=== PATIENT | male | born 1975 | race Caucasian/White ===

== ENCOUNTER 2023-05-16 18:53 | Inpatient (IN) | payer OTHER ==
--- NOTE | 2023-05-16 21:09 | ED ---
General Adult HPI - General Source: patient, RN notes reviewed Mode of arrival: ambulatory Limitations: no limitations <Deidre Leslie - Last Filed: 05/18/23 03:48> - History of Present Illness Onset/Timin -: days(s) Severity scale (1-10): 0 Consistency: constant Improves with: none Worsens with: none Associated Symptoms: nausea/vomiting, shortness of breath, weakness Treatments Prior to Arrival: none <Jesus Way - Last Filed: 05/21/23 08:18> - General Chief complaint: Nausea/Vomiting/Diarrhea Stated complaint: sob, dizziness, vomiting Time Seen by Provider: 05/16/23 21:05 - History of Present Illness Initial comments: 48-year-old male presents the emergency department with nausea and vomiting 1 week. (Deidre Leslie) This patient is a 48-year-old man who presents to emergency department he states mainly for dyspnea that started on . He did have a little bit of nausea and vomiting that had preceded the symptoms, but states that he really started feeling worse since . He had not noted fever or chills. No chest pain. No productive cough. No leg pain or swelling, other than a little bit of bilateral ankle swelling he has at baseline. No change in urination or bowel movements. (Jesus Way) - Related Data Home Medications Medication Instructions Recorded Confirmed Glimepiride [Amaryl] 2 mg PO DAILY 11/18/21 05/17/23 lisinopriL [Zestril] 2.5 mg PO DAILY 11/18/21 05/17/23 Pioglitazone [Actos] 30 mg PO DAILY 05/17/23 05/17/23 Previous Rx's Medication Instructions Recorded Atorvastatin Calcium [Lipitor] 40 mg PO DAILY #0 11/20/21 Allergies Allergy/AdvReac Type Severity Reaction Status Date / Time No Known Allergies Allergy Verified 05/17/23 07:34 Review of Systems ROS Other: All systems not noted in ROS Statement are negative. <Deidre Leslie - Last Filed: 05/18/23 03:48> ROS Other: All systems not noted in ROS Statement are negative. Constitutional: Reports: weakness. Denies: fever, chills Respiratory: Reports: dyspnea. Denies: cough, wheezes, hemoptysis Cardiovascular: Denies: chest pain, palpitations, orthopnea, edema, syncope Gastrointestinal: Reports: nausea, vomiting. Denies: abdominal pain, diarrhea, constipation, hematemesis, melena, hematochezia Genitourinary: Denies: dysuria, hematuria Musculoskeletal: Denies: back pain Skin: Denies: rash Neurological: Denies: headache, weakness, numbness <SeamusJesus - Last Filed: 05/21/23 08:18> ROS Statement: Those systems with pertinent positive or pertinent negative responses have been documented in the HPI. Past Medical History Past Medical History: Diabetes Mellitus, Hyperlipidemia, Hypertension History of Any Multi-Drug Resistant Organisms: None Reported Past Surgical History: Unable to Obtain Past Psychological History: No Psychological Hx Reported Smoking Status: Current every day smoker Past Alcohol Use History: None Reported Past Drug Use History: None Reported <BlakejassDeidre - Last Filed: 05/18/23 03:48> - Past Family History Father Family Medical History: Cancer, CVA/TIA Additional Family Medical History / Comment(s): bladder CA Mother Family Medical History: Diabetes Mellitus, Hypertension <SeamusJesus - Last Filed: 05/21/23 08:18> General Exam Limitations: no limitations <Deidre Leslie - Last Filed: 05/18/23 03:48> Limitations: no limitations General appearance: alert, in no apparent distress Head exam: Present: atraumatic, normocephalic Eye exam: Present: normal appearance. Absent: scleral icterus, conjunctival injection ENT exam: Present: normal oropharynx Neck exam: Present: normal inspection Respiratory exam: Present: normal lung sounds bilaterally. Absent: respiratory distress, wheezes, rales, rhonchi, stridor, accessory muscle use Cardiovascular Exam: Present: regular rate, normal rhythm, normal heart sounds. Absent: systolic murmur, diastolic murmur, rubs, gallop GI/Abdominal exam: Present: soft. Absent: distended, tenderness, guarding, rebound, rigid, mass Extremities exam: Present: normal inspection, normal capillary refill. Absent: pedal edema, calf tenderness Back exam: Present: normal inspection. Absent: CVA tenderness (R), CVA tenderness (L) Neurological exam: Present: alert Skin exam: Present: warm, dry, intact, normal color. Absent: rash <Jesus Way - Last Filed: 05/21/23 08:18> - General Exam Comments Initial Comments: Visual Physical Exam Vital signs reviewed General: Well-appearing, nontoxic, no acute distress. Head: Normocephalic, atraumatic Eyes: PERRLA, EOMI ENT: Airway patent Chest: Nonlabored breathing Skin: No visual rash, normal skin tone Neuro: Alert and oriented 3 Musculoskeletal: No gross abnormalities (Deidre Leslie) Course Vital Signs 05/16/23 05/17/23 05/17/23 18:55 01:00 04:00 Temperature 98.6 F Pulse Rate 89 98 86 Respiratory 20 20 16 Rate Blood Pressure 149/87 125/80 139/71 O2 Sat by Pulse 99 100 99 Oximetry 05/17/23 05/17/23 05/17/23 07:22 11:37 15:15 Temperature 98.3 F Pulse Rate 99 92 95 Respiratory 18 20 18 Rate Blood Pressure 127/80 156/98 149/87 O2 Sat by Pulse 100 99 100 Oximetry EKG Findings - EKG Results: EKG: interpreted by ERMD, sinus rhythm, normal axis - Blocks, Downey, Hypertrophy, ST Abn: AV and intraventricular conduction: 1 AV block QRS axis and voltage: low voltage (<0.5 MV total QRS and <1.0 MV in each precordial lead) Repolarization changes or abnormalities: nonspecific abnormality, ST segment, and/or T wave <Jesus Way - Last Filed: 05/21/23 08:18> Medical Decision Making - Lab Data Result diagrams: 05/16/23 21:57 05/17/23 07:54 <Deidre Leslie - Last Filed: 05/18/23 03:48> - Lab Data Result diagrams: 05/20/23 07:01 05/21/23 07:24 <[address] - Last Filed: 05/21/23 08:18> - Medical Decision Making Patient is a 48-year-old man with history of diabetes and smoking presenting with main complaint of dyspnea going on since . The ECG does show changes concerning for ischemia though not acute STEMI. Suspect that patient has had a cardiac event on as she does have positive troponin. The case is discussed with cardiology and there treatment recommendations are incorporated. Patient also found to have worsening of underlying kidney function and will be admitted to see nephrology as well is cardiology. Was pt. sent in by a medical professional or institution (, PA, BRAKE REPAIR MECHANIC, urgent care, hospital, or intermediate...) When possible be specific @ -[No] Did you speak to anyone other than the patient for history (EMS, parent, family, police, friend...)? What history was obtained from this source @ -[No] Did you review nursing and triage notes (agree or disagree)? Why? @ -[I reviewed and agree with nursing and triage notes] Were old charts reviewed (outside hosp., previous admission, EMS record, old EKG, old radiological studies, urgent care reports/EKG's, intermediate records)? Report findings @ -[old charts were reviewed] Differential Diagnosis (chest pain, altered mental status, abdominal pain women, abdominal pain men, vaginal bleeding, weakness, fever, dyspnea, syncope, headache, dizziness, GI bleed, back pain, seizure, CVA, palpatations, mental health, musculoskeletal)? @ -[Differential Dyspnea: Coronary syndrome, arrhythmia, tamponade, asthma, COPD, pulmonary embolism, pneumonia, pneumothorax, pulmonary effusion, anaphylaxis, diabetic ketoacidosis, flailed chest, pulmonary contusion, diaphragmatic rupture, anemia, neuromuscular, this is not meant to be an all-inclusive list. EKG interpreted by me (3pts min.). @ -[As above] X-rays interpreted by me (1pt min.). @ -[As above CT interpreted by me (1pt min.). @ -[None done] U/S interpreted by me (1pt. min.). @ -[None done] What testing was considered but not performed or refused? (CT, X-rays, U/S, labs)? Why? @ -[None] What meds were considered but not given or refused? Why? @ -[None] Did you discuss the management of the patient with other professionals (professionals i.e. NED Carrillo, BRAKE REPAIR MECHANIC, lab, RT, psych nurse, social security assessor, computer forensic examiner, teacher, donor relations officer, top case assembler)? Give summary @ -[I discussed the case with the senior back end java developer and also with the admitting physician service and there treatment recommendations were incorporated. Was smoking cessation discussed for >3mins.? @ -[Yes Was critical care preformed (if so, how long)? @ -[Yes, 40 minutes Were there social determinants of health that impacted care today? How? (Homelessness, low income, unemployed, alcoholism, drug addiction, transportation, low edu. Level, literacy, decrease access to med. care, fdc, rehab)? @ -[No] Was there de-escalation of care discussed even if they declined (Discuss DNR or withdrawal of care, Hospice)? DNR status @ -[No] What co-morbidities impacted this encounter? (DM, HTN, Smoking, COPD, CAD, Cancer, CVA, ARF, Chemo, Hep., AIDS, mental health diagnosis, sleep apnea, morbid obesity)? @ -[Diabetes, hypertension, smoking and some underlying chronic renal failure Was patient admitted / discharged? Hospital course, mention meds given and route, prescriptions, significant lab abnormalities, going to OR and other pertinent info. @ -[Admitted Undiagnosed new problem with uncertain prognosis? @ -[No] Drug Therapy requiring intensive monitoring for toxicity (Heparin, Nitro, Insulin, Cardizem)? @ -[Heparin Were any procedures done? @ -[No] Diagnosis/symptom? @ -[Elevated troponin I Acute NSTEMI Acute on chronic renal failure Acute, or Chronic, or Acute on Chronic? @ -[default] Uncomplicated (without systemic symptoms) or Complicated (systemic symptoms)? @ -[Complicated, the above problems leading to dyspnea Side effects of treatment? @ -[No] Exacerbation, Progression, or Severe Exacerbation? @ -[No] Poses a threat to life or bodily function? How? (Chest pain, [place], [place], pneumonia, PE, COPD, DKA, ARF, appy, cholecystitis, CVA, Diverticulitis, Homicidal, Suicidal, threat to staff... and all critical care pts) @ -[Yes risk of worsening cardiac function and/or kidney function may lead to organ failure and (Jseus Way) - Lab Data Lab Results 05/16/23 05/16/23 05/16/23 Range/Units 21:57 21:57 21:57 WBC 13.6 H (3.8-10.6) k/uL RBC 3.41 L (4.30-5.90) m/uL Hgb 9.6 L (13.0-17.5) gm/dL Hct 29.7 L (39.0-53.0) % MCV 87.3 (80.0-100.0) fL MCH 28.1 (25.0-35.0) pg MCHC 32.2 (31.0-37.0) g/dL RDW 13.7 (11.5-15.5) % Plt Count 317 (150-450) k/uL MPV 8.2 Neutrophils % 69 % Lymphocytes % 21 % Monocytes % 6 % Eosinophils % 2 % Basophils % 0 % Neutrophils # 9.5 H (1.3-7.7) k/uL Lymphocytes # 2.8 (1.0-4.8) k/uL Monocytes # 0.8 (0-1.0) k/uL Eosinophils # 0.2 (0-0.7) k/uL Basophils # 0.0 (0-0.2) k/uL PT 9.3 (9.0-12.0) sec INR 0.9 (<1.2) APTT 23.5 (22.0-30.0) sec Sodium 141 (137-145) mmol/L Potassium 4.3 (3.5-5.1) mmol/L Chloride 113 H (98-107) mmol/L Carbon Dioxide 17 L (22-30) mmol/L Anion Gap 11 mmol/L BUN 55 H (9-20) mg/dL Creatinine 3.96 H (0.66-1.25) mg/dL Est GFR (CKD-EPI)AfAm 19 (>60 ml/min/1.73 sqM) Est GFR (CKD-EPI)NonAf 17 (>60 ml/min/1.73 sqM) Glucose 152 H (74-99) mg/dL Plasma Lactic Acid Contreras (0.7-2.0) mmol/L Calcium 8.5 (8.4-10.2) mg/dL Total Bilirubin 0.3 (0.2-1.3) mg/dL AST 64 H (17-59) U/L ALT 37 (4-49) U/L Alkaline Phosphatase 69 (38-126) U/L Troponin I (0.000-0.034) ng/mL Total Protein 6.5 (6.3-8.2) g/dL Albumin 3.4 L (3.5-5.0) g/dL Influenza Type A (PCR) (Not Detectd) Influenza Type B (PCR) (Not Detectd) RSV (PCR) (Not Detectd) SARS-CoV-2 (PCR) (Not Detectd) 05/16/23 05/16/23 05/16/23 Range/Units 21:57 21:57 21:57 WBC (3.8-10.6) k/uL RBC (4.30-5.90) m/uL Hgb (13.0-17.5) gm/dL Hct (39.0-53.0) % MCV (80.0-100.0) fL MCH (25.0-35.0) pg MCHC (31.0-37.0) g/dL RDW (11.5-15.5) % Plt Count (150-450) k/uL MPV Neutrophils % % Lymphocytes % % Monocytes % % Eosinophils % % Basophils % % Neutrophils # (1.3-7.7) k/uL Lymphocytes # (1.0-4.8) k/uL Monocytes # (0-1.0) k/uL Eosinophils # (0-0.7) k/uL Basophils # (0-0.2) k/uL PT (9.0-12.0) sec INR (<1.2) APTT (22.0-30.0) sec Sodium (137-145) mmol/L Potassium (3.5-5.1) mmol/L Chloride (98-107) mmol/L Carbon Dioxide (22-30) mmol/L Anion Gap mmol/L BUN (9-20) mg/dL Creatinine (0.66-1.25) mg/dL Est GFR (CKD-EPI)AfAm (>60 ml/min/1.73 sqM) Est GFR (CKD-EPI)NonAf (>60 ml/min/1.73 sqM) Glucose (74-99) mg/dL Plasma Lactic Acid Contreras 0.9 (0.7-2.0) mmol/L Calcium (8.4-10.2) mg/dL Total Bilirubin (0.2-1.3) mg/dL AST (17-59) U/L ALT (4-49) U/L Alkaline Phosphatase (38-126) U/L Troponin I 34.500 H* (0.000-0.034) ng/mL Total Protein (6.3-8.2) g/dL Albumin (3.5-5.0) g/dL Influenza Type A (PCR) Not Detected (Not Detectd) Influenza Type B (PCR) Not Detected (Not Detectd) RSV (PCR) Not Detected (Not Detectd) SARS-CoV-2 (PCR) Not Detected (Not Detectd) Critical Care Time Critical Care Time: Yes (40 minutes) <[address] - Last Filed: 05/21/23 08:18> Disposition Is patient prescribed a controlled substance at d/c from ED?: No Time of Disposition: 03:48 <Deidre Leslie - Last Filed: 05/18/23 03:48> Is patient prescribed a controlled substance at d/c from ED?: No <Jesus Way - Last Filed: 05/21/23 08:18> Clinical Impression: NSTEMI (non-ST elevated myocardial infarction), Acute on chronic renal failure, Anemia Disposition: ADMITTED IP TO THIS HOSP Condition: Serious
--- NOTE | 2023-05-16 21:44 | XR ---
EXAMINATION TYPE: XR chest 2V DATE OF EXAM: 05/16/2023 9:25 PM COMPARISON: Chest x-ray 11/19/2021 TECHNIQUE: XR chest 2V . CLINICAL INDICATION:Male, 48 years old with history of syncope; FINDINGS: Lungs/Pleura: There is no evidence of pleural effusion, focal consolidation, or pneumothorax. Pulmonary vascularity: Unremarkable. Heart/mediastinum: Cardiomediastinal silhouette is enlarged. Musculoskeletal: Multiple level degenerative disc disease changes seen throughout the spine. IMPRESSION: Cardiomegaly without pulmonary vascular congestion or focal airspace consolidation.
[2023-05-16 22:57] LABS: Basophils % (A) 0 %; Eosinophils # (A) 0.2 k/uL (0-0.7); Eosinophils % (A) 2 %; HCT 29.7 % (39.0-53.0); HGB 9.6 gm/dL (13.0-17.5); Lymphocytes # (A) 2.8 k/uL (1.0-4.8); Lymphocytes % (A) 21 %; MCH 28.1 pg (25.0-35.0); MCHC 32.2 g/dL (31.0-37.0); MCV 87.3 fL (80.0-100.0); Mean Platelet Volume 8.2; Monocytes # (A) 0.8 k/uL (0-1.0); Monocytes % (A) 6 %; Neutrophils # (A) 9.5 k/uL (1.3-7.7); Neutrophils % (A) 69 %; Platelet Count 317 k/uL (150-450); RBC 3.41 m/uL (4.30-5.90); RDW 13.7 % (11.5-15.5); WBC 13.6 k/uL (3.8-10.6)
[2023-05-16 23:01] LABS: INR 0.9 (<1.2); Partial Thromboplastin Time 23.5 sec (22.0-30.0); Prothrombin Time 9.3 sec (9.0-12.0)
[2023-05-16 23:06] LABS: ALT 37 U/L (4-49); AST 64 U/L (17-59); African American GFR (CKD) 19 (>60 ml/min/1.73 sqM); Albumin 3.4 g/dL (3.5-5.0); Alkaline Phosphatase 69 U/L (38-126); Anion Gap 11 mmol/L; Blood Urea Nitrogen 55 mg/dL (9-20); Calcium 8.5 mg/dL (8.4-10.2); Carbon Dioxide 17 mmol/L (22-30); Chloride 113 mmol/L (98-107); Glucose 152 mg/dL (74-99); Non-African American GFR(CKD) 17 (>60 ml/min/1.73 sqM); Potassium 4.3 mmol/L (3.5-5.1); Sodium 141 mmol/L (137-145); Total Bilirubin 0.3 mg/dL (0.2-1.3); Total Protein 6.5 g/dL (6.3-8.2)
[2023-05-16] MEDS ORDERED: HEPARIN SODIUM 1,000 UN/ML (10ML VL) IV ONE (23:26)
[2023-05-16] MEDS: HEPARIN SOD,PORK IN 0.45% NACL 25,000 UNIT in 0.45% NACL 1 250ML.BAG IV SCH (23:38)
[2023-05-17] MEDS ORDERED: NITROGLYCERIN SL TABS 0.4 MG TAB SUBLINGUAL PRN (00:36)
--- NOTE | 2023-05-17 00:36 | XR ---
EXAM: XR Chest, 1 View CLINICAL HISTORY: ITS.REASON XR Reason: dyspnea TECHNIQUE: Frontal view of the chest. COMPARISON: No relevant prior studies available. FINDINGS: Lungs: Unremarkable. No consolidation. Pleural space: Unremarkable. No pneumothorax. Heart: Unremarkable. No cardiomegaly. Mediastinum: Unremarkable. Bones/joints: Unremarkable. IMPRESSION: Normal chest x-ray.
[2023-05-17] MEDS: HEPARIN SODIUM 1,000 UN/ML (10ML VL) IV PRN ×3 (07:17→22:26)
--- NOTE | 2023-05-17 08:12 | US ---
EXAMINATION TYPE: US kidneys/renal and bladder DATE OF EXAM: 05/17/2023 COMPARISON: NONE CLINICAL INDICATION: Male, 48 years old with history of ioana; EXAM MEASUREMENTS: Right Kidney: 11.3 x 6.2 x 6.1 cm Left Kidney: 12.6 x 6.1 x 6.7 cm Right Kidney: No hydronephrosis or masses seen Left Kidney: No hydronephrosis or masses seen Bladder: wnl There is no evidence for hydronephrosis at this point in time. No nephrolithiasis is seen. No gregorio s are identified. The urinary bladder is anechoic. Bilateral cortical thinning. Dromedary hump on th e left noted. IMPRESSION: Bilateral cortical thinning correlate for chronic medical renal disease.
[2023-05-17 08:28] LABS: African American GFR (CKD) 19 (>60 ml/min/1.73 sqM); Anion Gap 8 mmol/L; Blood Urea Nitrogen 51 mg/dL (9-20); Calcium 8.6 mg/dL (8.4-10.2); Carbon Dioxide 20 mmol/L (22-30); Chloride 114 mmol/L (98-107); Glucose 120 mg/dL (74-99); Non-African American GFR(CKD) 16 (>60 ml/min/1.73 sqM); Potassium 4.4 mmol/L (3.5-5.1); Sodium 142 mmol/L (137-145)
[2023-05-17] MEDS ORDERED: GLIMEPIRIDE 2 MG TAB PO SCH (09:00)
[2023-05-17] MEDS ORDERED: ATORVASTATIN 40 MG TAB PO SCH (09:00)
[2023-05-17] MEDS: METOPROLOL TARTRATE 25 MG TAB PO SCH ×2 (09:12→21:03)
[2023-05-17] MEDS: SODIUM CHLORIDE 0.9% 1,000 ML IV SCH ×2 (09:14→21:03)
[2023-05-17] MEDS: ATORVASTATIN 80 MG TAB PO SCH (09:14)
[2023-05-17] MEDS ORDERED: DEXTROSE 50% SYRINGE 50 ML IVP PRN ×2 (09:37)
--- NOTE | 2023-05-17 09:53 | US ---
EXAMINATION TYPE: US carotid duplex BILAT DATE OF EXAM: 05/17/2023 COMPARISON: NONE CLINICAL INDICATION: Male, 48 years old with history of r/o stenosis, + bruit; Bruit. Current smoker. TECHNIQUE: Carotid duplex ultrasound examination. Indirect Doppler criteria was utilized. FINDINGS: EXAM MEASUREMENTS: RIGHT: Peak Systolic Velocity (PSV) cm/sec ----- Right CCA: 76.8 ----- Right ICA: 78.2 ----- Right ECA: 100.8 ICA/CCA ratio: 1.0 RIGHT: End Diastole cm/sec ----- Right CCA: 21.9 ----- Right ICA: 28.4 ----- Right ECA: 14.1 LEFT: Peak Systolic Velocity (PSV) cm/sec ----- Left CCA: 74.7 ----- Left ICA: 100.8 ----- Left ECA: 95.6 ICA/CCA ratio: 1.4 LEFT: End Diastole cm/sec ----- Left CCA: 17.1 ----- Left ICA: 40.0 ----- Left ECA: 11.5 VERTEBRALS (direction of flow): Right Vertebral: Unable to visualize Left Vertebral: Antegrade Rhythm: Normal SALESPERSON HOSIERY NOTES: No elevated velocities at this time. Plaque seen within left bulb/proximal ICA. Ri ght vertebral not seen. IMPRESSION: Atherosclerotic plaque with no significant hemodynamic stenosis Criteria for Assigning % of Stenosis / Diameter reduction (Estimation based on the indirect measurements of the internal carotid artery velocities (ICA PSV). 1. Normal (no stenosis)=ICA PSV < 125 cm/s: ratio < 2.0: ICA EDV<40 cm/s. 2. Less than 50% stenosis=ICA PSV < 125 cm/s: ratio < 2.0: ICA EDV<40 cm/s. 3. 50 to 69% stenosis=ICA PSV of 125 to 230 cm/s: ration 2.0 ? 4.0: ICA EDV 40-100 cm/s. 4. Greater than 70% stenosis to near occlusion= ICA PSV > 230 cm/s: ratio > 4.0: ICA EDV > 100 cm/s. 5. Near occlusion= ICA PSV velocities may be low or undetectable: variable ratio and ICA EDV. 6. Total occlusion=unable to detect flow.
[2023-05-17 10:02] LABS: Glucose,Whole Blood 135 mg/dL (70-110)
--- NOTE | 2023-05-17 11:32 | P.NPCON ---
History of Present Illness - Reason for Consult acute renal failure, chronic renal failure - History of Present Illness Reason for consultation: Acute kidney injury on chronic kidney disease History of present illness: Patient is a 48-year-old male seen in renal consultation for acute kidney injury on chronic kidney disease. Patient's creatinine in November 2021 was 1.6 and was 3.96 on admission. It is 4.02 today. Patient came to the hospital due to not feeling well. Patient states he developed nausea and vomiting last as well as shortness of breath. Patient states symptoms have been getting better but still not back to normal saline taking the hospital for further workup. Troponins are noted to be severely elevated. He's been followed by cardiology. Patient does have history of diabetes. He denies regular use of nonsteroidals. Denies family history of renal disease. Denies gross hematuria or dysuria. Blood pressure is stable. No chest pain. He is on room air. He is currently on heparin drip. Ultrasound shows no evidence of hydronephrosis. Denies fever or chills. No cough. Vital signs are stable. General: No acute distress. HEENT: Head exam is unremarkable. LUNGS: No audible rhonchi or wheezes. HEART: Rate and Rhythm are regular. ABDOMEN: Nontender. EXTREMITITES: No edema. Past Medical History Past Medical History: Diabetes Mellitus, Hyperlipidemia, Hypertension History of Any Multi-Drug Resistant Organisms: None Reported Past Surgical History: Unable to Obtain Past Psychological History: No Psychological Hx Reported Smoking Status: Current every day smoker Past Alcohol Use History: None Reported Past Drug Use History: None Reported Medications and Allergies Home Medications Medication Instructions Recorded Confirmed Type Glimepiride [Amaryl] 2 mg PO DAILY 11/18/21 05/17/23 History lisinopriL [Zestril] 2.5 mg PO DAILY 11/18/21 05/17/23 History Atorvastatin Calcium [Lipitor] 40 mg PO DAILY #0 11/20/21 05/17/23 Rx Pioglitazone [Actos] 30 mg PO DAILY 05/17/23 05/17/23 History Allergies Allergy/AdvReac Type Severity Reaction Status Date / Time No Known Allergies Allergy Verified 05/17/23 07:34 Physical Exam Vitals: Vital Signs Temp Pulse Resp BP Pulse Ox 05/17/23 07:22 98.3 F 99 18 127/80 100 05/17/23 04:00 86 16 139/71 99 05/17/23 01:00 98 20 125/80 100 05/16/23 18:55 98.6 F 89 20 149/87 99 Intake and Output 05/16/23 05/17/23 05/17/23 22:59 06:59 14:59 Intake Total 76.833 Balance 76.833 Intake: Intake, IV Titration 76.833 Amount Heparin Sod,Pork in 0.45% 76.833 NaCl 25,000 unit In 0.45 % NaCl 1 250ml.bag @ 8. 4793 UNITS/KG/HR 10 mls/ hr IV .Q24H [facility] Rx#: [id number] Other: Weight 117.934 kg Results - Lab Results Most recent lab results Calcium 8.6 mg/dL (8.4-10.2) 05/17/23 07:54 Magnesium 2.0 mg/dL (1.6-2.3) 05/17/23 07:54 05/16/23 21:57 05/17/23 07:54 Assessment and Plan Plan: assessment: 1. Acute kidney injury secondary to ATN versus progression of underlying chronic kidney disease. No evidence of hydronephrosis noted on kidney ultrasound. 2. Chronic kidney disease stage IIIa with baseline creatinine near 1.6 in November 2021. Suspect diabetic kidney disease. 3. Elevated troponins concerning for acute SD. Cardiology following. On heparin drip. 4. Metabolic acidosis secondary to acute kidney injury. 5. Anemia of chronic kidney disease. Flovent deficiency. 6. Diabetes mellitus. Plan: Start normal saline at 75 mL an hour. Add oral bicarb. Check UA. Lisinopril discontinued. Avoid nephrotoxins. Continue to monitor renal function and urine output. Thank you for the consultation. I will continue to follow the patient with you during his hospital stay.
[2023-05-17 11:58] LABS: Glucose,Whole Blood 208 mg/dL (70-110)
[2023-05-17] MEDS: INSULIN ASPART (NovoLOG) 100 UNIT/ML VIAL SQ SCH ×3 (12:00→20:41)
[2023-05-17] MEDS: SODIUM BICARBONATE TAB 650 MG TAB PO SCH ×2 (12:47→21:03)
--- NOTE | 2023-05-17 13:04 | P.CRDCN ---
History of Present Illness Consult date: 05/17/23 History of present illness: History of Present Illness: The patient is a 48-year-old male with a known history of chronic tobacco use, hypertension and diabetes who presented with symptoms of progressive fatigue and dyspnea since last without any clear chest discomfort. On presentation he was noted to have an abnormal EKG with elevated troponin and significant renal function abnormality. He denies any knowledge of prior cardiac workup or history of myocardial infarction or congestive heart failure. According to him he has been active physically in the past. He denies any peripheral edema, PND or orthopnea. He has no dizziness, palpitations or syncope. His EKG shows sinus mechanism with ST depression in V3 and aVF and QS and aVL. His initial troponin was 34.5 and creatinine of 3.96. Reviewing prior data his creatinine was 1.6-1.8. The patient has a knowledge that he has prior renal abnormalities but has not had for workup. Medications: Actos, Zestril 2.5 mg daily, Amaryl, Lipitor 40 mg daily Review of Systems: Respiratory: He has dyspnea on exertion and chronic tobacco use GI: No nausea or vomiting . No history of peptic ulcer disease. No recent GI bleed. : No hematuria or dysuria. Nervous System: No stroke or seizure. Physical Examination: 48-year-old male, alert and oriented no apparent distress,Blood pressure 139/70, Heart rate 80 Head: Normocephalic. Eyes: Sclerae nonicteric. Neck: Good carotid upstroke, bilateral bruit bruit, no jugular venous distention. Lungs: Clear to auscultation. Heart: Regular rate and rhythm, S1-S2, no S3, no rub. Systolic ejection murmur. Abdomen: Soft nontender, positive bowel sounds no organomegaly. Extremities: No edema, intact distal pulses. Labs: BUN 51, creatinine 4.0 to. Peak troponin 34.5, down to 32.1. Potassium 4.4. Hemoglobin 9.6. Chest x-ray with no acute infiltrate EKG: Sinus mechanism with ST depression consistent with ischemia Impression: 1. Non-STEMI, probably started on . Patient has multiple coronary risk factors 2. Acute renal injury on chronic 3. History of hypertension 4. History of diabetes 5. Chronic tobacco use 6. Hyperlipidemia Plan: 1. Obtain an echocardiogram with Doppler 2. Hold Zestril 3. Add beta maria guadalupe 4. And add nitrate 5. Follow her renal functions 6. The patient will require coronary angiography but we will await s tabilization of his renal functions and input of the nephrology service Thank you for this consult we will follow with you. Past Medical History Past Medical History: Diabetes Mellitus, Hyperlipidemia, Hypertension History of Any Multi-Drug Resistant Organisms: None Reported Past Surgical History: Unable to Obtain Past Psychological History: No Psychological Hx Reported Smoking Status: Current every day smoker Past Alcohol Use History: None Reported Past Drug Use History: None Reported Medications and Allergies Home Medications Medication Instructions Recorded Confirmed Type Glimepiride [Amaryl] 2 mg PO DAILY 11/18/21 05/17/23 History lisinopriL [Zestril] 2.5 mg PO DAILY 11/18/21 05/17/23 History Atorvastatin Calcium [Lipitor] 40 mg PO DAILY #0 11/20/21 05/17/23 Rx Pioglitazone [Actos] 30 mg PO DAILY 05/17/23 05/17/23 History Allergies Allergy/AdvReac Type Severity Reaction Status Date / Time No Known Allergies Allergy Verified 05/17/23 07:34 Physical Exam Vitals: Vital Signs Temp Pulse Resp BP Pulse Ox 05/17/23 11:37 92 20 156/98 99 05/17/23 07:22 98.3 F 99 18 127/80 100 05/17/23 04:00 86 16 139/71 99 05/17/23 01:00 98 20 125/80 100 05/16/23 18:55 98.6 F 89 20 149/87 99 Intake and Output 05/16/23 05/17/23 05/17/23 22:59 06:59 14:59 Intake Total 76.833 Balance 76.833 Intake: Intake, IV Titration 76.833 Amount Heparin Sod,Pork in 0.45% 76.833 NaCl 25,000 unit In 0.45 % NaCl 1 250ml.bag @ 8. 4793 UNITS/KG/HR 10 mls/ hr IV .Q24H [facility] Rx#: [id number] Other: Weight 117.934 kg Results 05/16/23 21:57 05/17/23 07:54 Cardiac Enzymes 05/16/23 05/16/23 05/17/23 Range/Units 21:57 21:57 02:07 AST 64 H (17-59) U/L Troponin I 34.500 H* 32.900 H* (0.000-0.034) ng/mL 05/17/23 Range/Units 06:23 AST (17-59) U/L Troponin I 32.100 H* (0.000-0.034) ng/mL Coagulation 05/16/23 05/17/23 Range/Units 21:57 06:23 PT 9.3 (9.0-12.0) sec APTT 23.5 26.9 (22.0-30.0) sec CBC 05/16/23 Range/Units 21:57 WBC 13.6 H (3.8-10.6) k/uL RBC 3.41 L (4.30-5.90) m/uL Hgb 9.6 L (13.0-17.5) gm/dL Hct 29.7 L (39.0-53.0) % Plt Count 317 (150-450) k/uL Comprehensive Metabolic Panel 05/16/23 05/17/23 Range/Units 21:57 07:54 Sodium 141 142 (137-145) mmol/L Potassium 4.3 4.4 (3.5-5.1) mmol/L Chloride 113 H 114 H (98-107) mmol/L Carbon Dioxide 17 L 20 L (22-30) mmol/L BUN 55 H 51 H (9-20) mg/dL Creatinine 3.96 H 4.02 H (0.66-1.25) mg/dL Glucose 152 H 120 H (74-99) mg/dL Calcium 8.5 8.6 (8.4-10.2) mg/dL AST 64 H (17-59) U/L ALT 37 (4-49) U/L Alkaline Phosphatase 69 (38-126) U/L Total Protein 6.5 (6.3-8.2) g/dL Albumin 3.4 L (3.5-5.0) g/dL Current Medications Generic Name Dose Route Start Last Admin Trade Name Freq PRN Reason Stop Dose Admin Aspirin 81 mg 05/18/23 09:00 Aspirin 81 Mg PO DAILY [facility] Atorvastatin Calcium 80 mg 05/17/23 09:00 05/17/23 09:14 Atorvastatin 80 Mg Tab PO 80 mg DAILY [facility] Administration Dextrose/Water 25 ml 05/17/23 09:37 Dextrose 50% Syringe 50 Ml IVP PER PROTOCOL PRN Hypoglycemia Protocol Dextrose/Water 50 ml 05/17/23 09:37 Dextrose 50% Syringe 50 Ml IVP PER PROTOCOL PRN Hypoglycemia Protocol Heparin Sodium (Porcine) 0 unit 05/16/23 23:26 05/17/23 07:17 Heparin Sodium 1,000 Un/Ml (10ml Vl) IV 10,000 unit PER PROTOCOL PRN Administration Low PTT Protocol Heparin Sodium/Sodium Chloride 250 mls @ 10 mls/hr 05/16/23 23:30 05/17/23 07:19 25,000 unit/ Sodium Chloride IV 11.479 units/kg/hr .Q24H JANIS 13.538 mls/hr Titration Protocol 8.4793 UNITS/KG/HR Sodium Chloride 1,000 mls @ 75 mls/hr 05/17/23 08:45 05/17/23 09:14 Saline 0.9% IV 75 mls/hr .[id number] JANIS Administration Insulin Aspart 0 unit 05/17/23 12:30 05/17/23 12:00 Insulin Aspart (Novolog) 100 Unit/Ml Vial SQ 6 unit ACHS JANIS Administration Protocol Metoprolol Tartrate 25 mg 05/17/23 09:00 05/17/23 09:12 Metoprolol Tartrate 25 Mg Tab PO 25 mg BID JANIS Administration Nitroglycerin 0.4 mg 05/17/23 00:36 Nitroglycerin Sl Tabs 0.4 Mg Tab SUBLINGUAL Q5M PRN Chest Pain Sodium Bicarbonate 650 mg 05/17/23 11:45 05/17/23 12:47 Sodium Bicarbonate Tab 650 Mg Tab PO 650 mg BID JANIS Administration Intake and Output 05/16/23 05/17/23 05/17/23 22:59 06:59 14:59 Intake Total 76.833 Balance 76.833 Intake: Intake, IV Titration 76.833 Amount Heparin Sod,Pork in 0.45% 76.833 NaCl 25,000 unit In 0.45 % NaCl 1 250ml.bag @ 8. 4793 UNITS/KG/HR 10 mls/ hr IV .Q24H [facility] Rx#: [id number] Other: Weight 117.934 kg 05/16/23 21:57 05/17/23 07:54
--- NOTE | 2023-05-17 13:15 | P.HPIM ---
History of Present Illness H&P Date: 05/17/23 History of present illness; patient is a 48-year-old gentleman with past medical significant for hypertension, diabetes mellitus presented to the ER because of shortness of breath that started since last . Patient stated that he gets short of breath on exertion. Patient also complaining of shortness of breath at rest. There was also complaining of swelling of feet. There was no complaint of chest pain. There was no complain of palpitation. Denied any fever or chills. Patient did complain of nausea and vomiting on occasions. Because of this worsening shortness of breath, patient came to the ER Initial blood work in the ER showed WBC 13.6, hemoglobin 9.6, platelet count 317, sodium 141, potassium 4.3, BU and 55, creatinine 3.96 and troponin 34.500 Initial chest x-ray in the ER showed cardiomegaly without pulmonary vascular congestion or focal airspace consolidation EKG done showed a depression in lead 2, 3 and aVF Ultrasound of kidneys done showed bilateral cortical thinning correlate for chronic medical renal disease Patient admitted to medicine service REVIEW OF SYSTEMS: CONSTITUTIONAL: No fever, no malaise, no fatigue. HEENT: No recent visual problems or hearing problems. Denied any sore throat. CARDIOVASCULAR: No chest pain, orthopnea, PND, no palpitations, no syncope. PULMONARY: As mentioned in HPI GASTROINTESTINAL: No diarrhea, no nausea, no vomiting, no abdominal pain. NEUROLOGICAL: No headaches, no weakness, no numbness. HEMATOLOGICAL: Denies any bleeding or petechiae. GENITOURINARY: Denies any burning micturition, frequency, or urgency. MUSCULOSKELETAL/RHEUMATOLOGICAL: Denies any joint pain, swelling, or any muscle pain. ENDOCRINE: Denies any polyuria or polydipsia. The rest of the 14-point review of systems is negative. PHYSICAL EXAMINATION: GENERAL: The patient is alert and oriented x3, not in any acute distress. Well developed, well nourished. HEENT: Pupils are round and equally reacting to light. EOMI. No scleral icterus. No conjunctival pallor. Normocephalic, atraumatic. No pharyngeal erythema. No th yromegaly. CARDIOVASCULAR: S1 and S2 present. No murmurs, rubs, or gallops. PULMONARY: Chest is clear to auscultation, no wheezing or crackles. ABDOMEN: Soft, nontender, nondistended, normoactive bowel sounds. No palpable organomegaly. MUSCULOSKELETAL: No joint swelling or deformity. EXTREMITIES: No cyanosis, clubbing, 1+ pitting edema lower extremity NEUROLOGICAL: Gross neurological examination did not reveal any focal deficits. SKIN: No rashes. Assessment and plan Acute non-ST elevation [place] Acute on chronic kidney disease Hypertension [id number] diabetes mellitus Monitor vital signs monitor CBC Monitor CMP Continue telemetry monitoring Trend troponins. Serial EKGs Strict I's and O's, daily weights Avoid nephrotoxic agents Continue heparin pharmacy dose Follow-up on 2-D echo Continue sliding scale insulin, avoid oral hypoglycemics Consult nephrology Consult cardiology Past Medical History Past Medical History: Diabetes Mellitus, Hyperlipidemia, Hypertension History of Any Multi-Drug Resistant Organisms: None Reported Past Surgical History: Unable to Obtain Past Psychological History: No Psychological Hx Reported Smoking Status: Current every day smoker Past Alcohol Use History: None Reported Past Drug Use History: None Reported Medications and Allergies Home Medications Medication Instructions Recorded Confirmed Type Glimepiride [Amaryl] 2 mg PO DAILY 11/18/21 05/17/23 History lisinopriL [Zestril] 2.5 mg PO DAILY 11/18/21 05/17/23 History Atorvastatin Calcium [Lipitor] 40 mg PO DAILY #0 11/20/21 05/17/23 Rx Pioglitazone [Actos] 30 mg PO DAILY 05/17/23 05/17/23 History Allergies Allergy/AdvReac Type Severity Reaction Status Date / Time No Known Allergies Allergy Verified 05/17/23 07:34 Physical Exam Vitals: Vital Signs Temp Pulse Resp BP Pulse Ox 05/17/23 07:22 98.3 F 99 18 127/80 100 05/17/23 04:00 86 16 139/71 99 05/17/23 01:00 98 20 125/80 100 05/16/23 18:55 98.6 F 89 20 149/87 99 Intake and Output 05/16/23 05/17/23 05/17/23 22:59 06:59 14:59 Intake Total 76.833 Balance 76.833 Intake: Intake, IV Titration 76.833 Amount Heparin Sod,Pork in 0.45% 76.833 NaCl 25,000 unit In 0.45 % NaCl 1 250ml.bag @ 8. 4793 UNITS/KG/HR 10 mls/ hr IV .Q24H [facility] Rx#: [id number] Other: Weight 117.934 kg Results CBC & Chem 7: 05/16/23 21:57 05/17/23 07:54 Labs: Abnormal Lab Results - Last 24 Hours (Table) 05/16/23 05/16/23 05/16/23 Range/Units 21:57 21:57 21:57 WBC 13.6 H (3.8-10.6) k/uL RBC 3.41 L (4.30-5.90) m/uL Hgb 9.6 L (13.0-17.5) gm/dL Hct 29.7 L (39.0-53.0) % Neutrophils # 9.5 H (1.3-7.7) k/uL Chloride 113 H (98-107) mmol/L Carbon Dioxide 17 L (22-30) mmol/L BUN 55 H (9-20) mg/dL Creatinine 3.96 H (0.66-1.25) mg/dL Glucose 152 H (74-99) mg/dL AST 64 H (17-59) U/L Troponin I 34.500 H* (0.000-0.034) ng/mL Albumin 3.4 L (3.5-5.0) g/dL 05/17/23 05/17/23 05/17/23 Range/Units 02:07 06:23 07:54 WBC (3.8-10.6) k/uL RBC (4.30-5.90) m/uL Hgb (13.0-17.5) gm/dL Hct (39.0-53.0) % Neutrophils # (1.3-7.7) k/uL Chloride 114 H (98-107) mmol/L Carbon Dioxide 20 L (22-30) mmol/L BUN 51 H (9-20) mg/dL Creatinine 4.02 H (0.66-1.25) mg/dL Glucose 120 H (74-99) mg/dL AST (17-59) U/L Troponin I 32.900 H* 32.100 H* (0.000-0.034) ng/mL Albumin (3.5-5.0) g/dL
[2023-05-17 14:20] LABS: Amorphous Sediment,Urine Occasional /hpf; Appearance,Urine Clear (Clear); Bilirubin,Urine Negative (Negative); Blood,Urine Small (Negative); Color,Urine Light Yellow; Glucose,Urine (UA) 2+ (Negative); Ketones,Urine Negative (Negative); Leukocyte Esterase,Urine Negative (Negative); Nitrite,Urine Negative (Negative); Protein,Urine 3+ (Negative); RBC,Urine 1 /hpf (0-5); Specific Gravity,Urine 1.016 (1.001-1.035); Squamous Epithelial Cell,Urine <1 /hpf (0-4); Urobilinogen,Urine <2.0 mg/dL (<2.0); WBC,Urine 1 /hpf (0-5)
[2023-05-17] MEDS: ISOSORBIDE MONONITRATE ER 30 MG TAB.ER.24H PO SCH (15:43)
[2023-05-17 16:48] LABS: Glucose,Whole Blood 92 mg/dL (70-110)
[2023-05-17 20:12] LABS: Glucose,Whole Blood 144 mg/dL (70-110)
[2023-05-17] MEDS: HEPARIN SOD,PORK IN 0.45% NACL 25,000 UNIT in 0.45% NACL 1 250ML.BAG IV SCH (22:25)
[2023-05-17] MEDS: ALPRAZolam 0.25 MG TAB PO PRN (22:51)
[2023-05-18 05:36] LABS: African American GFR (CKD) 21 (>60 ml/min/1.73 sqM); Anion Gap 6 mmol/L; Blood Urea Nitrogen 50 mg/dL (9-20); Calcium 8.7 mg/dL (8.4-10.2); Carbon Dioxide 19 mmol/L (22-30); Chloride 113 mmol/L (98-107); Glucose 117 mg/dL (74-99); Non-African American GFR(CKD) 18 (>60 ml/min/1.73 sqM); Potassium 4.7 mmol/L (3.5-5.1); Sodium 138 mmol/L (137-145)
[2023-05-18 06:06] LABS: Glucose,Whole Blood 121 mg/dL (70-110)
[2023-05-18] MEDS: INSULIN ASPART (NovoLOG) 100 UNIT/ML VIAL SQ SCH ×4 (06:06→21:05)
[2023-05-18] MEDS: ISOSORBIDE MONONITRATE ER 30 MG TAB.ER.24H PO SCH (08:57)
[2023-05-18] MEDS: ASPIRIN 81 MG PO SCH (08:58)
[2023-05-18] MEDS: SODIUM BICARBONATE TAB 650 MG TAB PO SCH ×2 (08:58→21:04)
[2023-05-18] MEDS: ATORVASTATIN 80 MG TAB PO SCH (08:58)
[2023-05-18] MEDS: METOPROLOL TARTRATE 25 MG TAB PO SCH ×2 (08:58→21:05)
[2023-05-18] MEDS ORDERED: ASPIRIN 325 MG TAB PO SCH (09:00)
[2023-05-18 10:45] LABS: Chol/HDL Ratio 3.65 Ratio; LDL Cholesterol,Calculated 67.3 mg/dL (0.0-131.0)
[2023-05-18 11:31] LABS: Glucose,Whole Blood 129 mg/dL (70-110)
[2023-05-18] MEDS: SODIUM CHLORIDE 0.9% 1,000 ML IV SCH (11:39)
--- NOTE | 2023-05-18 13:22 | P.PN ---
Subjective Progress Note Date: 05/18/23 PROGRESS NOTE The patient is a 48-year-old male with a known history of chronic tobacco use, hypertension and diabetes who presented with symptoms of progressive fatigue and dyspnea since last without any clear chest discomfort. On presentation he was noted to have an abnormal EKG with elevated troponin and significant renal function abnormality. He denies any knowledge of prior cardiac workup or history of myocardial infarction or congestive heart failure. According to him he has been active physically in the past. He denies any peripheral edema, PND or orthopnea. He has no dizziness, palpitations or syncope. His EKG shows sinus mechanism with ST depression in V3 and aVF and QS and aVL. His initial troponin was 34.5 and creatinine of 3.96. Reviewing prior data his creatinine was 1.6-1.8. The patient has a knowledge that he has prior renal abnormalities but has not had for workup. May 18: The patient feels better today, he denies any chest discomfort home dizziness or palpitations. He continues to be on IV heparin. He denies any nausea or vomiting. Hemodynamically he is stable. His creatinine today is 3.72. He is in sinus mechanism. His echocardiogram is pending. Medications: Aspirin, IV heparin, isosorbide 30 mg daily, metoprolol 25 mg twice a day, Lipitor 80 mg daily. PHYSICAL EXAMINATION: Blood pressure 150/80 heart rate 80 LUNGS: Clear to auscultation HEART: Regular rate and rhythm, S1, S2. No S3. Systolic ejection murmur ABDOMEN: Soft, nontender, no organomegaly EXTREMETIES: No edema LAB: BUN 50, creatinine 3.72, LDL 67 IMPRESSION: 1. Non-STEMI 2. Acute on chronic kidney disease with acute renal injury 3. Hypertension 4. History of diabetes 5. History of chronic tobacco use 6. History of hyperlipidemia PLAN: 1. Review the echocardiogram 2. Increase the beta maria guadalupe 3. If renal functions are stable proceed with coronary angiography tomorrow, I discussed with him and his family the risks and the complications 4. Depending on his progress further recommendations will be made Objective - Vital Signs Vital signs: Vital Signs Temp 98 F 05/18/23 08:55 Pulse 89 05/18/23 11:40 Resp 17 05/18/23 11:40 BP 150/81 05/18/23 11:40 Pulse Ox 99 05/18/23 11:40 FiO2 Intake & Output 07/11/23 07/12/23 07/12/23 18:59 06:59 18:59 Intake Total 362.429 68.140 Output Total 350 Balance 362.429 -281.860 Weight 117.934 kg Intake: Intake, IV Titration 182.429 68.140 Amount Heparin Sod,Pork in 0.45% 182.429 68.140 NaCl 25,000 unit In 0.45 % NaCl 1 250ml.bag @ 8. 4793 UNITS/KG/HR 10 mls/ hr IV .Q24H [facility] Rx#: [id number] Oral 180 Output: Urine 350 Other: Voiding Method Toilet Toilet # Voids 1 - Labs CBC & Chem 7: 05/16/23 21:57 05/18/23 04:31 Labs: Abnormal Lab Results - Last 24 Hours (Table) 05/17/23 05/17/23 05/17/23 Range/Units 11:36 12:52 12:52 APTT 34.2 H (22.0-30.0) sec Chloride (98-107) mmol/L Carbon Dioxide (22-30) mmol/L BUN (9-20) mg/dL Creatinine (0.66-1.25) mg/dL Glucose (74-99) mg/dL POC Glucose (mg/dL) (70-110) mg/dL Hemoglobin A1c 6.7 H (<=6.0) % HDL Cholesterol (40.00-60.00) mg/dL Urine Protein 3+ H (Negative) Urine Glucose (UA) 2+ H (Negative) Urine Blood Small H (Negative) Amorphous Sediment Occasional H (None) /hpf 05/17/23 05/18/23 05/18/23 Range/Units 20:10 04:31 04:31 APTT (22.0-30.0) sec Chloride 113 H (98-107) mmol/L Carbon Dioxide 19 L (22-30) mmol/L BUN 50 H (9-20) mg/dL Creatinine 3.72 H (0.66-1.25) mg/dL Glucose 117 H (74-99) mg/dL POC Glucose (mg/dL) 144 H (70-110) mg/dL Hemoglobin A1c (<=6.0) % HDL Cholesterol 35.30 L (40.00-60.00) mg/dL Urine Protein (Negative) Urine Glucose (UA) (Negative) Urine Blood (Negative) Amorphous Sediment (None) /hpf 05/18/23 05/18/23 05/18/23 Range/Units 04:31 06:04 11:30 APTT 58.7 H (22.0-30.0) sec Chloride (98-107) mmol/L Carbon Dioxide (22-30) mmol/L BUN (9-20) mg/dL Creatinine (0.66-1.25) mg/dL Glucose (74-99) mg/dL POC Glucose (mg/dL) 121 H 129 H (70-110) mg/dL Hemoglobin A1c (<=6.0) % HDL Cholesterol (40.00-60.00) mg/dL Urine Protein (Negative) Urine Glucose (UA) (Negative) Urine Blood (Negative) Amorphous Sediment (None) /hpf
--- NOTE | 2023-05-18 14:15 | P.PN ---
Subjective Patient is seen in follow-up for acute kidney injury on chronic kidney disease. Renal function a little better. Receiving IV fluids. Admits to good urine output. Hemodynamically stable. Vital signs are stable. General: No acute distress. HEENT: Head exam is unremarkable. LUNGS: No audible rhonchi or wheezes. HEART: Rate and Rhythm are regular. ABDOMEN: Nontender. EXTREMITITES: No edema. Objective - Vital Signs Vital signs: Vital Signs Temp 98 F 05/18/23 08:55 Pulse 89 05/18/23 11:40 Resp 17 05/18/23 11:40 BP 150/81 05/18/23 11:40 Pulse Ox 99 05/18/23 11:40 FiO2 Intake & Output 05/17/23 05/18/23 05/18/23 18:59 06:59 18:59 Intake Total 362.429 68.140 Output Total 350 Balance 362.429 -281.860 Weight 117.934 kg Intake: Intake, IV Titration 182.429 68.140 Amount Heparin Sod,Pork in 0.45% 182.429 68.140 NaCl 25,000 unit In 0.45 % NaCl 1 250ml.bag @ 8. 4793 UNITS/KG/HR 10 mls/ hr IV .Q24H [facility] Rx#: [id number] Oral 180 Output: Urine 350 Other: Voiding Method Toilet Toilet # Voids 1 - Labs CBC & Chem 7: 05/16/23 21:57 05/18/23 04:31 Labs: Abnormal Lab Results - Last 24 Hours (Table) 05/17/23 05/17/23 05/17/23 Range/Units 11:36 12:52 20:10 APTT (22.0-30.0) sec Chloride (98-107) mmol/L Carbon Dioxide (22-30) mmol/L BUN (9-20) mg/dL Creatinine (0.66-1.25) mg/dL Glucose (74-99) mg/dL POC Glucose (mg/dL) 144 H (70-110) mg/dL Hemoglobin A1c 6.7 H (<=6.0) % HDL Cholesterol (40.00-60.00) mg/dL Urine Protein 3+ H (Negative) Urine Glucose (UA) 2+ H (Negative) Urine Blood Small H (Negative) Amorphous Sediment Occasional H (None) /hpf 05/18/23 05/18/23 05/18/23 Range/Units 04:31 04:31 04:31 APTT 58.7 H (22.0-30.0) sec Chloride 113 H (98-107) mmol/L Carbon Dioxide 19 L (22-30) mmol/L BUN 50 H (9-20) mg/dL Creatinine 3.72 H (0.66-1.25) mg/dL Glucose 117 H (74-99) mg/dL POC Glucose (mg/dL) (70-110) mg/dL Hemoglobin A1c (<=6.0) % HDL Cholesterol 35.30 L (40.00-60.00) mg/dL Urine Protein (Negative) Urine Glucose (UA) (Negative) Urine Blood (Negative) Amorphous Sediment (None) /hpf 05/18/23 05/18/23 Range/Units 06:04 11:30 APTT (22.0-30.0) sec Chloride (98-107) mmol/L Carbon Dioxide (22-30) mmol/L BUN (9-20) mg/dL Creatinine (0.66-1.25) mg/dL Glucose (74-99) mg/dL POC Glucose (mg/dL) 121 H 129 H (70-110) mg/dL Hemoglobin A1c (<=6.0) % HDL Cholesterol (40.00-60.00) mg/dL Urine Protein (Negative) Urine Glucose (UA) (Negative) Urine Blood (Negative) Amorphous Sediment (None) /hpf Assessment and Plan Plan: assessment: 1. Acute kidney injury secondary to ATN versus progression of underlying ch ronic kidney disease. No evidence of hydronephrosis noted on kidney ultrasound. Creatinine peaked at 4.0 to this admission and is 3.7 today. 2. Chronic kidney disease stage IIIa with baseline creatinine near 1.6 in November 2021. Suspect diabetic kidney disease. Proteinuria noted on UA. 3. Elevated troponins concerning for acute NM. Cardiology following. On heparin drip. 4. Metabolic acidosis secondary to acute kidney injury and IV fluids. On oral bicarb. 5. Anemia of chronic kidney disease. 6. Diabetes mellitus. Plan: Maintain normal saline. Check iron studies. Avoid nephrotoxins. Patient may need cardiac catheterization. Discussed with patient the risk of worsening renal failure, potentially requiring treatment replacement therapy, post-IV contrast exposure. He understands. Continue to monitor renal function and urine output. Follow-up echocardiogram.
--- NOTE | 2023-05-18 14:29 | P.PN ---
Subjective Progress Note Date: 05/18/23 patient is a 48-year-old gentleman with past medical significant for hypertension, diabetes mellitus presented to the ER because of shortness of breath that started since last . Patient stated that he gets short of breath on exertion. Patient also complaining of shortness of breath at rest. There was also complaining of swelling of feet. There was no complaint of chest pain. There was no complain of palpitation. Denied any fever or chills. Patient did complain of nausea and vomiting on occasions. Because of this worsening shortness of breath, patient came to the ER Initial blood work in the ER showed WBC 13.6, hemoglobin 9.6, platelet count 317, sodium 141, potassium 4.3, BU and 55, creatinine 3.96 and troponin 34.500 Initial chest x-ray in the ER showed cardiomegaly without pulmonary vascular congestion or focal airspace consolidation EKG done showed a depression in lead 2, 3 and aVF Ultrasound of kidneys done showed bilateral cortical thinning correlate for chronic medical renal disease Patient admitted to medicine service 05/18. Patient seen and examined. States shortness of breath is improved. Denies any chest pain. Family at the bedside, questions answered. REVIEW OF SYSTEMS: CONSTITUTIONAL: No fever, no malaise,. CARDIOVASCULAR: No chest pain, no palpitations, no syncope. PULMONARY: No shortness of breath, no cough, GASTROINTESTINAL: No diarrhea, no nausea, no vomiting, no abdominal pain. NEUROLOGICAL: No headaches, no weakness, PHYSICAL EXAMINATION: GENERAL: The patient is alert and oriented x3, not in any acute distress. Well developed, well nourished. HEENT: Pupils are round and equally reacting to light. EOMI. No scleral icterus. No conjunctival pallor. Normocephalic, atraumatic. No pharyngeal erythema. No thyromegaly. CARDIOVASCULAR: S1 and S2 present. No murmurs, rubs, or gallops. PULMONARY: Chest is clear to auscultation, no wheezing or crackles. ABDOMEN: Soft, nontender, nondistended, normoactive bowel sounds. No palpable organomegaly. MUSCULOSKELETAL: No joint swelling or deformity. EXTREMITIES: No cyanosis, clubbing, or pedal edema. NEUROLOGICAL: Gross neurological examination did not reveal any focal deficits. SKIN: No rashes. Assessment and plan Acute non-ST elevation MT Acute on chronic kidney disease Hypertension Lbb-hdquagg-egssgngjk diabetes mellitus Monitor vital signs Monitor CBC Monitor CMP Continue telemetry monitoring Strict I's and O's, daily weights Avoid nephrotoxic agents Continue heparin pharmacy dose Follow-up on 2-D echo Continue sliding scale insulin, avoid oral hypoglycemics Follow-up on cardiology recommendations Follow-up on nephrology recommendations Labs and medication were reviewed.. Continue same treatment. Continue with symptomatic treatment. Resume home medication. Monitor labs and vitals. DVT and GI prophylaxis. Further recommendations as per clinical course of the patient Objective - Vital Signs Vital signs: Vital Signs Temp 98 F 05/18/23 08:55 Pulse 89 05/18/23 11:40 Resp 17 05/18/23 11:40 BP 150/81 05/18/23 11:40 Pulse Ox 99 05/18/23 11:40 FiO2 Intake & Output 05/17/23 05/18/23 05/18/23 18:59 06:59 18:59 Intake Total 362.429 68.140 118 Output Total 350 Balance 362.429 -281.860 118 Weight 117.934 kg Intake: Intake, IV Titration 182.429 68.140 Amount Heparin Sod,Pork in 0.45% 182.429 68.140 NaCl 25,000 unit In 0.45 % NaCl 1 250ml.bag @ 8. 4793 UNITS/KG/HR 10 mls/ hr IV .Q24H JANIS Rx#: [id number] Oral 180 118 Output: Urine 350 Other: Voiding Method Toilet Toilet # Voids 1 - Labs CBC & Chem 7: 05/16/23 21:57 05/18/23 04:31 Labs: Abnormal Lab Results - Last 24 Hours (Table) 05/17/23 05/17/23 05/18/23 Range/Units 12:52 20:10 04:31 APTT (22.0-30.0) sec Chloride (98-107) mmol/L Carbon Dioxide (22-30) mmol/L BUN (9-20) mg/dL Creatinine (0.66-1.25) mg/dL Glucose (74-99) mg/dL POC Glucose (mg/dL) 144 H (70-110) mg/dL Hemoglobin A1c 6.7 H (<=6.0) % HDL Cholesterol 35.30 L (40.00-60.00) mg/dL 05/18/23 05/18/23 05/18/23 Range/Units 04:31 04:31 06:04 APTT 58.7 H (22.0-30.0) sec Chloride 113 H (98-107) mmol/L Carbon Dioxide 19 L (22-30) mmol/L BUN 50 H (9-20) mg/dL Creatinine 3.72 H (0.66-1.25) mg/dL Glucose 117 H (74-99) mg/dL POC Glucose (mg/dL) 121 H (70-110) mg/dL Hemoglobin A1c (<=6.0) % HDL Cholesterol (40.00-60.00) mg/dL 05/18/23 Range/Units 11:30 APTT (22.0-30.0) sec Chloride (98-107) mmol/L Carbon Dioxide (22-30) mmol/L BUN (9-20) mg/dL Creatinine (0.66-1.25) mg/dL Glucose (74-99) mg/dL POC Glucose (mg/dL) 129 H (70-110) mg/dL Hemoglobin A1c (<=6.0) % HDL Cholesterol (40.00-60.00) mg/dL
[2023-05-18 16:17] LABS: Glucose,Whole Blood 188 mg/dL (70-110)
[2023-05-18] MEDS: ACETAMINOPHEN TAB 325 MG TAB PO PRN (16:47)
--- NOTE | 2023-05-18 17:25 | CA ---
Transthoracic Echo Report Name: Pablito Lee Age: 48 Gender: M : 1975 Exam Date: 05/18/2023 12:04 Exam Location: [facility] Ht (in): 70 Wt (lb): 260 Ordering Physician: Yfn Chahal MD ([id number]) Attending/Referring Phys: Matcher Arnulfo Fitzgerald Procedure CPT: Indications: SD Cardiac Hx: Technical Quality: Technically difficult study Contrast 1: Lumason Total Dose (mL): 5 Contrast 2: Definity Total Dose (mL): 10 MEASUREMENTS (Male / Female) Normal Values 2D ECHO LV Diastolic Diameter PLAX 5.2 cm 4.2 - 5.9 / 3.9 - 5.3 cm IVS Diastolic Thickness 1.2 cm 0.6 - 1.0 / 0.6 - 0.9 cm LVPW Diastolic Thickness 1.2 cm 0.6 - 1.0 / 0.6 - 0.9 cm LV Relative Wall Thickness 0.4 RV Internal Dim ED PLAX 3.6 cm LVOT Diameter 2.1 cm Aortic Root Diameter 3.3 cm LA Systolic Diameter LX 2.7 cm 3.0 - 4.0 / 2.7 - 3.8 cm LV Diastolic Volume MOD BP 72.1 cm??? 67 - 155 / 56 - 104 cm??? LV Systolic Volume MOD BP 42.0 cm??? 22 - 58 / 19 - 49 cm??? LV Ejection Fraction MOD BP 41.8 % >= 55 % LV Diastolic Volume MOD 4C 81.5 cm??? LV Systolic Volume MOD 4C 56.0 cm??? LV Ejection Fraction MOD 4C 31.2 % LV Diastolic Length 4C 7.2 cm LV Systolic Length 4C 6.8 cm LV Diastolic Volume MOD 2C 63.7 cm??? LV Systolic Volume MOD 2C 30.8 cm??? LV Ejection Fraction MOD 2C 51.7 % LV Diastolic Length 2C 7.2 cm LV Systolic Length 2C 6.9 cm LA Volume 50.9 cm??? 18 - 58 / 22 - 52 cm??? Ascending Aorta Diameter 3.1 cm DOPPLER LVOT Peak Velocity 87.7 cm/s LVOT Peak Gradient 3.1 mmHg MR Peak Velocity 227.3 cm/s MR Peak Gradient 20.7 mmHg Mitral E Point Velocity 96.2 cm/s Mitral A Point Velocity 39.1 cm/s Mitral E to A Ratio 2.5 MV Deceleration Time 28.1 ms MV E' Velocity 6.9 cm/s Mitral E to MV E' Ratio 13.9 TR Peak Velocity 233.2 cm/s TR Peak Gradient 21.8 mmHg Right Ventricular Systolic Press 26.9 mmHg PV Peak Velocity 125.8 cm/s PV Peak Gradient 6.3 mmHg FINDINGS Left Ventricle Normal LV size. Normal wall thickness. Left ventricular ejection fraction is estimated at 50-55 %. Right Ventricle RV upper limits of normal in size. RVSP= 32mmhg. Right Atrium Normal right atrial size. Left Atrium Normal left atrial size. Mitral Valve Structurally normal mitral valve. Mild MR. Aortic Valve Trileaflet aortic valve. No aortic valve stenosis or regurgitation. Tricuspid Valve Tricuspid valve not well visualized. Moderate TR. Pulmonic Valve Pulmonic valve not well visualized. No pulmonic regurgitation. Pericardium Normal pericardium. Aorta Normal size aortic root and proximal ascending aorta. CONCLUSIONS Normal LV function Mild mitral regurgitation Moderate tricuspid regurgitation Previewed by: Quentin Mosley MD Dr. Suresh Tumma MD (Electronically Signed) Final Date: 18 May 2023 17:24
[2023-05-18 20:14] LABS: Glucose,Whole Blood 169 mg/dL (70-110)
[2023-05-18] MEDS: ALPRAZolam 0.25 MG TAB PO PRN (21:36)
[2023-05-19 01:34] LABS: % Iron Saturation 5.25 (15.00-50.00)
[2023-05-19] MEDS: HEPARIN SOD,PORK IN 0.45% NACL 25,000 UNIT in 0.45% NACL 1 250ML.BAG IV SCH ×2 (04:28→16:07)
[2023-05-19] MEDS: SODIUM CHLORIDE 0.9% 1,000 ML IV SCH ×2 (04:29→16:07)
[2023-05-19 06:14] LABS: Glucose,Whole Blood 187 mg/dL (70-110)
[2023-05-19] MEDS: INSULIN ASPART (NovoLOG) 100 UNIT/ML VIAL SQ SCH ×4 (06:42→20:14)
[2023-05-19] MEDS: ISOSORBIDE MONONITRATE ER 30 MG TAB.ER.24H PO SCH (08:38)
[2023-05-19] MEDS: SODIUM BICARBONATE TAB 650 MG TAB PO SCH ×2 (08:38→20:13)
[2023-05-19] MEDS: ASPIRIN 81 MG PO SCH (08:38)
[2023-05-19] MEDS: METOPROLOL TARTRATE 25 MG TAB PO SCH ×2 (08:38→20:13)
[2023-05-19] MEDS: ATORVASTATIN 80 MG TAB PO SCH (08:38)
[2023-05-19] MEDS: ACETAMINOPHEN TAB 325 MG TAB PO PRN ×2 (08:44→20:13)
[2023-05-19 09:10] LABS: African American GFR (CKD) 24 (>60 ml/min/1.73 sqM); Blood Urea Nitrogen 46 mg/dL (9-20); Carbon Dioxide 16 mmol/L (22-30); Non-African American GFR(CKD) 21 (>60 ml/min/1.73 sqM)
[2023-05-19 09:48] LABS: Anion Gap 9 mmol/L; Calcium 8.3 mg/dL (8.4-10.2); Chloride 113 mmol/L (98-107); Glucose 145 mg/dL (74-99); Potassium 4.8 mmol/L (3.5-5.1); Sodium 138 mmol/L (137-145)
[2023-05-19 11:37] LABS: Glucose,Whole Blood 226 mg/dL (70-110)
--- NOTE | 2023-05-19 12:15 | P.PN ---
Subjective Patient is seen in follow-up for acute kidney injury on chronic kidney disease. Renal function slowly improving. Receiving IV fluids. Admits to good urine output. Hemodynamically stable. Vital signs are stable. General: No acute distress. HEENT: Head exam is unremarkable. LUNGS: No audible rhonchi or wheezes. HEART: Rate and Rhythm are regular. ABDOMEN: Nontender. EXTREMITITES: No edema. Objective - Vital Signs Vital signs: Vital Signs Temp 98.6 F 05/19/23 08:33 Pulse 93 05/19/23 12:05 Resp 18 05/19/23 12:05 BP 143/77 05/19/23 12:05 Pulse Ox 98 05/19/23 12:05 FiO2 Intake & Output 05/18/23 05/19/23 05/19/23 18:59 06:59 18:59 Intake Total 485.431 940 77.303 Output Total 350 Balance 485.431 590 77.303 Weight 122.3 kg Intake: IV 40 Invasive Line 1 20 Invasive Line 2 20 Intake, IV Titration 249.431 900 77.303 Amount Heparin Sod,Pork in 0.45% 249.431 77.303 NaCl 25,000 unit In 0.45 % NaCl 1 250ml.bag @ 8. 4793 UNITS/KG/HR 10 mls/ hr IV .Q24H [facility] Rx#: [id number] Sodium Chloride 0.9% 1, 900 000 ml @ 75 mls/hr IV . [id number] JAN[facility] Rx#:[id number] Oral 236 Output: Urine 350 Other: Voiding Method Toilet Urinal Urinal - Labs CBC & Chem 7: 05/16/23 21:57 05/19/23 07:13 Labs: Abnormal Lab Results - Last 24 Hours (Table) 05/18/23 05/18/23 05/18/23 Range/Units 04:39 16:14 20:13 APTT (22.0-30.0) sec Chloride (98-107) mmol/L Carbon Dioxide (22-30) mmol/L BUN (9-20) mg/dL Creatinine (0.66-1.25) mg/dL Glucose (74-99) mg/dL POC Glucose (mg/dL) 188 H 169 H (70-110) mg/dL Calcium (8.4-10.2) mg/dL Iron 16 L (65-175) UG/DL % Saturation 5.25 L (15.00-50.00) 05/19/23 05/19/23 05/19/23 Range/Units 06:12 07:13 07:13 APTT 40.2 H (22.0-30.0) sec Chloride 113 H (98-107) mmol/L Carbon Dioxide 16 L (22-30) mmol/L BUN 46 H (9-20) mg/dL Creatinine 3.31 H (0.66-1.25) mg/dL Glucose 145 H (74-99) mg/dL POC Glucose (mg/dL) 187 H (70-110) mg/dL Calcium 8.3 L (8.4-10.2) mg/dL Iron (65-175) UG/DL % Saturation (15.00-50.00) 05/19/23 Range/Units 11:36 APTT (22.0-30.0) sec Chloride (98-107) mmol/L Carbon Dioxide (22-30) mmol/L BUN (9-20) mg/dL Creatinine (0.66-1.25) mg/dL Glucose (74-99) mg/dL POC Glucose (mg/dL) 226 H (70-110) mg/dL Calcium (8.4-10.2) mg/dL Iron (65-175) UG/DL % Saturation (15.00-50.00) Assessment and Plan Plan: assessment: 1. Acute kidney injury secondary to ATN versus progression of underlying chronic kidney disease. No evidence of hydronephrosis noted on kidney ultrasound. Creatinine peaked at 4.0 to this admission and is 3.3 today. 2. Chronic kidney disease stage IIIa with baseline creatinine near 1.6 in November 2021. Suspect diabetic kidney disease. Proteinuria noted on UA. 3. Elevated troponins concerning for acute UT. Cardiology following. On heparin drip. 4. Metabolic acidosis secondary to acute kidney injury and IV fluids. On oral bicarb. 5. Anemia of chronic kidney disease. Iron deficiency noted. 6. Diabetes mellitus. 7. Moderate tricuspid regurgitation with preserved ejection fraction. Plan: Maintain normal saline. Add IV iron. Avoid nephrotoxins. Scheduled for cardiac catheterization tomorrow. Discussed with patient the risk of worsening renal failure, potentially requiring treatment replacement therapy, post-IV contrast exposure. He understands. Continue to monitor renal function and urine output.
--- NOTE | 2023-05-19 12:29 | P.PN ---
Subjective HISTORY OF PRESENT ILLNESS: The patient is a 48-year-old male with a known history of chronic tobacco use, hypertension and diabetes who presented with symptoms of progressive fatigue and dyspnea since last without any clear chest discomfort. On presentation he was noted to have an abnormal EKG with elevated troponin and significant renal function abnormality. He denies any knowledge of prior cardiac workup or history of myocardial infarction or congestive heart failure. According to him he has been active physically in the past. He denies any peripheral edema, PND or orthopnea. He has no dizziness, palpitations or syncope. His EKG shows sinus mechanism with ST depression in V3 and aVF and QS and aVL. His initial troponin was 34.5 and creatinine of 3.96. Reviewing prior data his creatinine was 1.6-1.8. The patient has a knowledge that he has prior renal abnormalities but has not had for workup. Medications: Actos, Zestril 2.5 mg daily, Amaryl, Lipitor 40 mg daily May 18: The patient feels better today, he denies any chest discomfort home dizziness or palpitations. He continues to be on IV heparin. He denies any nausea or vomiting. Hemodynamically he is stable. His creatinine today is 3.72. He is in sinus mechanism. His echocardiogram is pending. 05/19/2023 Patient examined this morning. Patient is sitting up in the chair. Patient denies chest pain or pressure. He denies shortness of breath. He remains on IV heparin. Vital signs are stable. Creatinine slightly improved to 3.31. Echocardiogram completed revealing ejection fraction 50-55%, mild mitral regurgitation, and moderate tricuspid regurgitation PHYSICAL EXAM: VITAL SIGNS: Reviewed. GENERAL: Well-developed in no acute distress. NECK: Supple. No JVD or thyromegaly LUNGS: Respirations even and unlabored. Lungs essentially clear to auscultation bilaterally. HEART: Regular rate and rhythm. S1 and S2 heard. Systolic murmur noted EXTREMITIES: Normal range of motion. No clubbing or cyanosis. Peripheral pulses intact. No lower extremity edema ASSESSMENT: Non-STEMI Acute on chronic kidney disease Hypertension Hyperlipidemia Diabetes Nicotine dependence PLAN: Continue current cardiac medications Continue IV heparin Continue to monitor kidney function. Repeat in a.m. Nothing by mouth midnight If patient's renal function improves, will plan for cardiac catheterization tomorrow Further recommendations pending patient's course Nurse practitioner note has been reviewed by physician. Signing provider agrees with the documented findings, assessment, and plan of care. Objective - Vital Signs Vital signs: Vital Signs Temp 98.6 F 05/19/23 08:33 Pulse 93 05/19/23 12:05 Resp 18 05/19/23 12:05 BP 143/77 05/19/23 12:05 Pulse Ox 98 05/19/23 12:05 FiO2 Intake & Output 05/18/23 05/19/23 05/19/23 18:59 06:59 18:59 Intake Total 485.431 940 77.303 Output Total 350 Balance 485.431 590 77.303 Weight 122.3 kg Intake: IV 40 Invasive Line 1 20 Invasive Line 2 20 Intake, IV Titration 249.431 900 77.303 Amount Heparin Sod,Pork in 0.45% 249.431 77.303 NaCl 25,000 unit In 0.45 % NaCl 1 250ml.bag @ 8. 4793 UNITS/KG/HR 10 mls/ hr IV .Q24H [facility] Rx#: [id number] Sodium Chloride 0.9% 1, 900 000 ml @ 75 mls/hr IV . [id number] JAN[facility] Rx#:[id number] Oral 236 Output: Urine 350 Other: Voiding Method Toilet Urinal Urinal - Labs CBC & Chem 7: 05/16/23 21:57 05/19/23 07:13 Labs: Abnormal Lab Results - Last 24 Hours (Table) 05/18/23 05/18/23 05/18/23 Range/Units 04:39 16:14 20:13 APTT (22.0-30.0) sec Chloride (98-107) mmol/L Carbon Dioxide (22-30) mmol/L BUN (9-20) mg/dL Creatinine (0.66-1.25) mg/dL Glucose (74-99) mg/dL POC Glucose (mg/dL) 188 H 169 H (70-110) mg/dL Calcium (8.4-10.2) mg/dL Iron 16 L (65-175) UG/DL % Saturation 5.25 L (15.00-50.00) 05/19/23 05/19/23 05/19/23 Range/Units 06:12 07:13 07:13 APTT 40.2 H (22.0-30.0) sec Chloride 113 H (98-107) mmol/L Carbon Dioxide 16 L (22-30) mmol/L BUN 46 H (9-20) mg/dL Creatinine 3.31 H (0.66-1.25) mg/dL Glucose 145 H (74-99) mg/dL POC Glucose (mg/dL) 187 H (70-110) mg/dL Calcium 8.3 L (8.4-10.2) mg/dL Iron (65-175) UG/DL % Saturation (15.00-50.00) 05/19/23 Range/Units 11:36 APTT (22.0-30.0) sec Chloride (98-107) mmol/L Carbon Dioxide (22-30) mmol/L BUN (9-20) mg/dL Creatinine (0.66-1.25) mg/dL Glucose (74-99) mg/dL POC Glucose (mg/dL) 226 H (70-110) mg/dL Calcium (8.4-10.2) mg/dL Iron (65-175) UG/DL % Saturation (15.00-50.00)
--- NOTE | 2023-05-19 13:09 | P.PN ---
Subjective Progress Note Date: 05/19/23 patient is a 48-year-old gentleman with past medical significant for hypertension, diabetes mellitus presented to the ER because of shortness of breath that started since last . Patient stated that he gets short of breath on exertion. Patient also complaining of shortness of breath at rest. There was also complaining of swelling of feet. There was no complaint of chest pain. There was no complain of palpitation. Denied any fever or chills. Patient did complain of nausea and vomiting on occasions. Because of this worsening shortness of breath, patient came to the ER Initial blood work in the ER showed WBC 13.6, hemoglobin 9.6, platelet count 317, sodium 141, potassium 4.3, BU and 55, creatinine 3.96 and troponin 34.500 Initial chest x-ray in the ER showed cardiomegaly without pulmonary vascular congestion or focal airspace consolidation EKG done showed a depression in lead 2, 3 and aVF Ultrasound of kidneys done showed bilateral cortical thinning correlate for chronic medical renal disease Patient admitted to medicine service 05/18. Patient seen and examined. States shortness of breath is improved. Denies any chest pain. Family at the bedside, questions answered. 05/19. Patient seen and examined. Lab work this morning showed BUN of 46, creatinine 3.31. Denies any chest pain REVIEW OF SYSTEMS: CONSTITUTIONAL: No fever, no malaise,. CARDIOVASCULAR: No chest pain, no palpitations, no syncope. PULMONARY: No shortness of breath, no cough, GASTROINTESTINAL: No diarrhea, no nausea, no vomiting, no abdominal pain. NEUROLOGICAL: No headaches, no weakness, PHYSICAL EXAMINATION: GENERAL: The patient is alert and oriented x3, not in any acute distress. Well developed, well nourished. HEENT: Pupils are round and equally reacting to light. EOMI. No scleral icterus. No conjunctival pallor. Normocephalic, atraumatic. No pharyngeal erythema. No thyromegaly. CARDIOVASCULAR: S1 and S2 present. No murmurs, rubs, or gallops. PULMONARY: Chest is clear to auscultation, no wheezing or crackles. ABDOMEN: Soft, nontender, nondistended, normoactive bowel sounds. No palpable organomegaly. MUSCULOSKELETAL: No joint swelling or deformity. EXTREMITIES: No cyanosis, clubbing, or pedal edema. NEUROLOGICAL: Gross neurological examination did not reveal any focal deficits. SKIN: No rashes. Assessment and plan Acute non-ST elevation [place] Acute on chronic kidney disease Hypertension Tci-gemkijs-qothuloui diabetes mellitus Monitor vital signs Monitor CBC Monitor CMP Continue telemetry monitoring Strict I's and O's, daily weights Avoid nephrotoxic agents Continue heparin pharmacy dose Follow-up on 2-D echo Continue sliding scale insulin, avoid oral hypoglycemics Follow-up on cardiology recommendations, plan for cardiac cath tomorrow, nothing by mouth after midnight Follow-up on nephrology recommendations Labs and medication were reviewed.. Continue same treatment. Continue with symptomatic treatment. Resume home medication. Monitor labs and vitals. DVT and GI prophylaxis. Further recommendations as per clinical course of the patient Objective - Vital Signs Vital signs: Vital Signs Temp 98.6 F 05/19/23 08:33 Pulse 89 05/19/23 08:33 Resp 18 05/19/23 08:33 BP 149/93 05/19/23 08:33 Pulse Ox 98 05/19/23 09:38 FiO2 Intake & Output 05/18/23 05/19/23 05/19/23 18:59 06:59 18:59 Intake Total 485.431 940 77.303 Output Total 350 Balance 485.431 590 77.303 Weight 122.3 kg Intake: IV 40 Invasive Line 1 20 Invasive Line 2 20 Intake, IV Titration 249.431 900 77.303 Amount Heparin Sod,Pork in 0.45% 249.431 77.303 NaCl 25,000 unit In 0.45 % NaCl 1 250ml.bag @ 8. 4793 UNITS/KG/HR 10 mls/ hr IV .Q24H [facility] Rx#: [id number] Sodium Chloride 0.9% 1, 900 000 ml @ 75 mls/hr IV . [id number] JANIS Rx#:[id number] Oral 236 Output: Urine 350 Other: Voiding Method Toilet Urinal - Labs CBC & Chem 7: 05/16/23 21:57 05/19/23 07:13 Labs: Abnormal Lab Results - Last 24 Hours (Table) 05/18/23 05/18/23 05/18/23 Range/Units 04:31 04:39 11:30 APTT (22.0-30.0) sec Carbon Dioxide (22-30) mmol/L BUN (9-20) mg/dL Creatinine (0.66-1.25) mg/dL POC Glucose (mg/dL) 129 H (70-110) mg/dL Iron 16 L (65-175) UG/DL % Saturation 5.25 L (15.00-50.00) HDL Cholesterol 35.30 L (40.00-60.00) mg/dL 05/18/23 05/18/23 05/19/23 Range/Units 16:14 20:13 06:12 APTT (22.0-30.0) sec Carbon Dioxide (22-30) mmol/L BUN (9-20) mg/dL Creatinine (0.66-1.25) mg/dL POC Glucose (mg/dL) 188 H 169 H 187 H (70-110) mg/dL Iron (65-175) UG/DL % Saturation (15.00-50.00) HDL Cholesterol (40.00-60.00) mg/dL 05/19/23 05/19/23 Range/Units 07:13 07:13 APTT 40.2 H (22.0-30.0) sec Carbon Dioxide 16 L (22-30) mmol/L BUN 46 H (9-20) mg/dL Creatinine 3.31 H (0.66-1.25) mg/dL POC Glucose (mg/dL) (70-110) mg/dL Iron (65-175) UG/DL % Saturation (15.00-50.00) HDL Cholesterol (40.00-60.00) mg/dL
[2023-05-19] MEDS: SODIUM FERRIC GLUCONAT-SUCROSE 125 MG in SODIUM CHLORIDE 0.9% 100 ML IVPB SCH (15:00)
[2023-05-19 16:39] LABS: Glucose,Whole Blood 105 mg/dL (70-110)
[2023-05-19 19:54] LABS: Glucose,Whole Blood 173 mg/dL (70-110)
[2023-05-19] MEDS: ALPRAZolam 0.25 MG TAB PO PRN (22:47)
[2023-05-20] MEDS: HEPARIN SOD,PORK IN 0.45% NACL 25,000 UNIT in 0.45% NACL 1 250ML.BAG IV SCH (03:24)
[2023-05-20] MEDS: SODIUM CHLORIDE 0.9% 1,000 ML IV SCH ×2 (03:50→16:37)
[2023-05-20 05:56] LABS: Glucose,Whole Blood 170 mg/dL (70-110)
[2023-05-20] MEDS: INSULIN ASPART (NovoLOG) 100 UNIT/ML VIAL SQ SCH ×4 (06:50→20:38)
[2023-05-20] MEDS ORDERED: HEPARIN SODIUM,PORCINE 2,500 UNIT in SODIUM CHLORIDE 0.9% 250 ML IRRIGATION PRN (07:00)
[2023-05-20] MEDS ORDERED: HEPARIN SODIUM,PORCINE 10,000 UNIT in SODIUM CHLORIDE 0.9% 1,000 ML IRRIGATION PRN (07:00)
[2023-05-20 07:42] LABS: Basophils % (A) 0 %; Eosinophils # (A) 0.2 k/uL (0-0.7); Eosinophils % (A) 2 %; HCT 25.4 % (39.0-53.0); HGB 8.2 gm/dL (13.0-17.5); Hypochromasia Slight; Lymphocytes # (A) 2.1 k/uL (1.0-4.8); Lymphocytes % (A) 21 %; MCH 28.7 pg (25.0-35.0); MCHC 32.5 g/dL (31.0-37.0); MCV 88.5 fL (80.0-100.0); Mean Platelet Volume 8.4; Monocytes # (A) 0.7 k/uL (0-1.0); Monocytes % (A) 7 %; Neutrophils # (A) 6.8 k/uL (1.3-7.7); Neutrophils % (A) 68 %; Platelet Count 302 k/uL (150-450); RBC 2.87 m/uL (4.30-5.90); RDW 13.3 % (11.5-15.5); WBC 10.1 k/uL (3.8-10.6)
[2023-05-20 08:09] LABS: ALT 25 U/L (4-49); AST 26 U/L (17-59); African American GFR (CKD) 22 (>60 ml/min/1.73 sqM); Albumin 2.9 g/dL (3.5-5.0); Alkaline Phosphatase 70 U/L (38-126); Anion Gap 7 mmol/L; Blood Urea Nitrogen 45 mg/dL (9-20); Calcium 8.1 mg/dL (8.4-10.2); Carbon Dioxide 20 mmol/L (22-30); Chloride 113 mmol/L (98-107); Glucose 161 mg/dL (74-99); Magnesium 1.9 mg/dL (1.6-2.3); Non-African American GFR(CKD) 19 (>60 ml/min/1.73 sqM); Potassium 4.8 mmol/L (3.5-5.1); Sodium 140 mmol/L (137-145); Total Bilirubin 0.2 mg/dL (0.2-1.3); Total Protein 5.7 g/dL (6.3-8.2)
[2023-05-20] MEDS ORDERED: ALPRAZolam 0.5 MG TAB PO PRN (08:21)
[2023-05-20] MEDS ORDERED: ATORVASTATIN 80 MG TAB PO STA (08:21)
[2023-05-20] MEDS ORDERED: NITROGLYCERIN SL TABS 0.4 MG TAB SUBLINGUAL PRN (08:21)
[2023-05-20] MEDS ORDERED: ASPIRIN 325 MG TAB PO STA (08:21)
[2023-05-20] MEDS ORDERED: ALPRAZolam 0.25 MG TAB PO PRN (08:21)
[2023-05-20] MEDS: ASPIRIN 81 MG PO SCH (08:51)
[2023-05-20] MEDS: ATORVASTATIN 80 MG TAB PO SCH (08:51)
[2023-05-20 08:54] LABS: Glucose,Whole Blood 127 mg/dL (70-110)
[2023-05-20] MEDS: SODIUM BICARBONATE TAB 650 MG TAB PO SCH ×2 (09:03→20:56)
[2023-05-20] MEDS: ISOSORBIDE MONONITRATE ER 30 MG TAB.ER.24H PO SCH (09:03)
[2023-05-20] MEDS: SODIUM FERRIC GLUCONAT-SUCROSE 125 MG in SODIUM CHLORIDE 0.9% 100 ML IVPB SCH (09:04)
[2023-05-20] MEDS: METOPROLOL TARTRATE 25 MG TAB PO SCH (09:04)
[2023-05-20] MEDS: ACETAMINOPHEN TAB 325 MG TAB PO PRN ×2 (09:15→20:57)
--- NOTE | 2023-05-20 11:39 | P.PN ---
Subjective Patient is seen in follow-up for acute kidney injury on chronic kidney disease. Renal function fairly stable. Receiving IV fluids. Admits to good urine output. Hemodynamically stable. Scheduled for cardiac cath today. Denies chest pain or shortness of breath at this time. Vital signs are stable. General: No acute distress. HEENT: Head exam is unremarkable. LUNGS: No audible rhonchi or wheezes. HEART: Rate and Rhythm are regular. ABDOMEN: Nontender. EXTREMITITES: No edema. Objective - Vital Signs Vital signs: Vital Signs Temp 97.4 F L 05/20/23 11:10 Pulse 79 05/20/23 11:10 Resp 16 05/20/23 11:10 BP 144/80 05/20/23 11:10 Pulse Ox 98 05/20/23 11:10 FiO2 Intake & Output 05/19/23 05/20/23 05/20/23 18:59 06:59 18:59 Intake Total 490.000 370 Output Total 0 Balance 490.000 370 Intake: Intake, IV Titration 250.000 250 Amount Heparin Sod,Pork in 0.45% 250.000 250 NaCl 25,000 unit In 0.45 % NaCl 1 250ml.bag @ 8. 4793 UNITS/KG/HR 10 mls/ hr IV .Q24H J[facility] Rx#: [id number] Oral 240 120 Output: Gastric Drainage 0 Urine 0 Stool 0 Urine/Stool Mix 0 Emesis 0 Oral Regurgitation 0 Other 0 Other: Voiding Method Urinal Urinal Urinal # Voids 0 1 # Bowel Movements 0 - Labs CBC & Chem 7: 05/20/23 07:01 05/20/23 07:01 Labs: Abnormal Lab Results - Last 24 Hours (Table) 05/19/23 05/19/23 05/19/23 Range/Units 11:36 14:12 19:52 RBC (4.30-5.90) m/uL Hgb (13.0-17.5) gm/dL Hct (39.0-53.0) % APTT 57.2 H (22.0-30.0) sec Chloride (98-107) mmol/L Carbon Dioxide (22-30) mmol/L BUN (9-20) mg/dL Creatinine (0.66-1.25) mg/dL Glucose (74-99) mg/dL POC Glucose (mg/dL) 226 H 173 H (70-110) mg/dL Calcium (8.4-10.2) mg/dL Total Protein (6.3-8.2) g/dL Albumin (3.5-5.0) g/dL 05/20/23 05/20/23 05/20/23 Range/Units 05:54 07:01 07:01 RBC 2.87 L (4.30-5.90) m/uL Hgb 8.2 L (13.0-17.5) gm/dL Hct 25.4 L (39.0-53.0) % APTT (22.0-30.0) sec Chloride 113 H (98-107) mmol/L Carbon Dioxide 20 L (22-30) mmol/L BUN 45 H (9-20) mg/dL Creatinine 3.50 H (0.66-1.25) mg/dL Glucose 161 H (74-99) mg/dL POC Glucose (mg/dL) 170 H (70-110) mg/dL Calcium 8.1 L (8.4-10.2) mg/dL Total Protein 5.7 L (6.3-8.2) g/dL Albumin 2.9 L (3.5-5.0) g/dL 05/20/23 05/20/23 Range/Units 07:01 08:53 RBC (4.30-5.90) m/uL Hgb (13.0-17.5) gm/dL Hct (39.0-53.0) % APTT 78.9 H (22.0-30.0) sec Chloride (98-107) mmol/L Carbon Dioxide (22-30) mmol/L BUN (9-20) mg/dL Creatinine (0.66-1.25) mg/dL Glucose (74-99) mg/dL POC Glucose (mg/dL) 127 H (70-110) mg/dL Calcium (8.4-10.2) mg/dL Total Protein (6.3-8.2) g/dL Albumin (3.5-5.0) g/dL Assessment and Plan Plan: assessment: 1. Acute kidney injury secondary to ATN versus progression of underlying chronic kidney disease. No evidence of hydronephrosis noted on kidney ultrasound. Creatinine peaked at 4.0 to this admission and is 3.5 today. 2. Chronic kidney disease stage IIIa with baseline creatinine near 1.6 in November 2021. Suspect diabetic kidney disease. Proteinuria noted on UA. 3. Elevated troponins concerning for acute SD. Cardiology following. On heparin drip. 4. Metabolic acidosis secondary to acute kidney injury and IV fluids. On oral bicarb. 5. Anemia of chronic kidney disease. Iron deficiency noted. 6. Diabetes mellitus. 7. Moderate tricuspid regurgitation with preserved ejection fraction. Plan: Maintain normal saline. Increase dose of metoprolol. Maintain IV iron. Avoid nephrotoxins. Scheduled for cardiac catheterization today. Discussed with patient the risk of worsening renal failure, potentially requiring treatment replacement therapy, post-IV contrast exposure. He understands. Continue to monitor renal function and urine output.
[2023-05-20 11:40] LABS: Glucose,Whole Blood 117 mg/dL (70-110)
--- NOTE | 2023-05-20 13:37 | P.PN ---
Subjective Progress Note Date: 05/20/23 patient is a 48-year-old gentleman with past medical significant for hypertension, diabetes mellitus presented to the ER because of shortness of breath that started since last . Patient stated that he gets short of breath on exertion. Patient also complaining of shortness of breath at rest. There was also complaining of swelling of feet. There was no complaint of chest pain. There was no complain of palpitation. Denied any fever or chills. Patient did complain of nausea and vomiting on occasions. Because of this worsening shortness of breath, patient came to the ER Initial blood work in the ER showed WBC 13.6, hemoglobin 9.6, platelet count 317, sodium 141, potassium 4.3, BU and 55, creatinine 3.96 and troponin 34.500 Initial chest x-ray in the ER showed cardiomegaly without pulmonary vascular congestion or focal airspace consolidation EKG done showed a depression in lead 2, 3 and aVF Ultrasound of kidneys done showed bilateral cortical thinning correlate for chronic medical renal disease Patient admitted to medicine service 05/18. Patient seen and examined. States shortness of breath is improved. Denies any chest pain. Family at the bedside, questions answered. 05/19. Patient seen and examined. Lab work this morning showed BUN of 46, creatinine 3.31. Denies any chest pain 05/20. Patient seen and examined. Currently nothing by mouth going for cardiac cath today. REVIEW OF SYSTEMS: CONSTITUTIONAL: No fever, no malaise,. CARDIOVASCULAR: No chest pain, no palpitations, no syncope. PULMONARY: No shortness of breath, no cough, GASTROINTESTINAL: No diarrhea, no nausea, no vomiting, no abdominal pain. NEUROLOGICAL: No headaches, no weakness, PHYSICAL EXAMINATION: GENERAL: The patient is alert and oriented x3, not in any acute distress. Well developed, well nourished. HEENT: Pupils are round and equally reacting to light. EOMI. No scleral icterus. No conjunctival pallor. Normocephalic, atraumatic. No pharyngeal erythema. No thyromegaly. CARDIOVASCULAR: S1 and S2 present. No murmurs, rubs, or gallops. PULMONARY: Chest is clear to auscultation, no wheezing or crackles. ABDOMEN: Soft, nontender, nondistended, normoactive bowel sounds. No palpable organomegaly. MUSCULOSKELETAL: No joint swelling or deformity. EXTREMITIES: No cyanosis, clubbing, or pedal edema. NEUROLOGICAL: Gross neurological examination did not reveal any focal deficits. SKIN: No rashes. Assessment and plan Acute non-ST elevation NE Acute on chronic kidney disease Hypertension Aeh-kqlyqhh-ppntlbsck diabetes mellitus Monitor vital signs Monitor CBC Monitor CMP Continue telemetry monitoring Strict I's and O's, daily weights Avoid nephrotoxic agents Continue heparin pharmacy dose Follow-up on 2-D echo Continue sliding scale insulin, avoid oral hypoglycemics Follow-up on cardiology recommendations, going for cardiac cath today. Follow-up on nephrology recommendations Labs and medication were reviewed.. Continue same treatment. Continue with symptomatic treatment. Resume home medication. Monitor labs and vitals. DVT and GI prophylaxis. Further recommendations as per clinical course of the patient Objective - Vital Signs Vital signs: Vital Signs Temp 97.4 F L 05/20/23 11:10 Pulse 79 05/20/23 11:10 Resp 16 05/20/23 11:10 BP 144/80 05/20/23 11:10 Pulse Ox 98 05/20/23 11:10 FiO2 Intake & Output 05/19/23 05/20/23 05/20/23 18:59 06:59 18:59 Intake Total 490.000 370 Output Total 0 Balance 490.000 370 Intake: Intake, IV Titration 250.000 250 Amount Heparin Sod,Pork in 0.45% 250.000 250 NaCl 25,000 unit In 0.45 % NaCl 1 250ml.bag @ 8. 4793 UNITS/KG/HR 10 mls/ hr IV .Q24H [facility] Rx#: [id number] Oral 240 120 Output: Gastric Drainage 0 Urine 0 Stool 0 Urine/Stool Mix 0 Emesis 0 Oral Regurgitation 0 Other 0 Other: Voiding Method Urinal Urinal Urinal # Voids 0 1 # Bowel Movements 0 - Labs CBC & Chem 7: 05/20/23 07:01 05/20/23 07:01 Labs: Abnormal Lab Results - Last 24 Hours (Table) 05/19/23 05/19/23 05/20/23 Range/Units 14:12 19:52 05:54 RBC (4.30-5.90) m/uL Hgb (13.0-17.5) gm/dL Hct (39.0-53.0) % APTT 57.2 H (22.0-30.0) sec Chloride (98-107) mmol/L Carbon Dioxide (22-30) mmol/L BUN (9-20) mg/dL Creatinine (0.66-1.25) mg/dL Glucose (74-99) mg/dL POC Glucose (mg/dL) 173 H 170 H (70-110) mg/dL Calcium (8.4-10.2) mg/dL Total Protein (6.3-8.2) g/dL Albumin (3.5-5.0) g/dL 05/20/23 05/20/23 05/20/23 Range/Units 07:01 07:01 07:01 RBC 2.87 L (4.30-5.90) m/uL Hgb 8.2 L (13.0-17.5) gm/dL Hct 25.4 L (39.0-53.0) % APTT 78.9 H (22.0-30.0) sec Chloride 113 H (98-107) mmol/L Carbon Dioxide 20 L (22-30) mmol/L BUN 45 H (9-20) mg/dL Creatinine 3.50 H (0.66-1.25) mg/dL Glucose 161 H (74-99) mg/dL POC Glucose (mg/dL) (70-110) mg/dL Calcium 8.1 L (8.4-10.2) mg/dL Total Protein 5.7 L (6.3-8.2) g/dL Albumin 2.9 L (3.5-5.0) g/dL 05/20/23 05/20/23 Range/Units 08:53 11:30 RBC (4.30-5.90) m/uL Hgb (13.0-17.5) gm/dL Hct (39.0-53.0) % APTT (22.0-30.0) sec Chloride (98-107) mmol/L Carbon Dioxide (22-30) mmol/L BUN (9-20) mg/dL Creatinine (0.66-1.25) mg/dL Glucose (74-99) mg/dL POC Glucose (mg/dL) 127 H 117 H (70-110) mg/dL Calcium (8.4-10.2) mg/dL Total Protein (6.3-8.2) g/dL Albumin (3.5-5.0) g/dL
[2023-05-20] MEDS ORDERED: fentaNYL (PF) 50 MCG/ML 2 ML AMP ONE (14:07)
[2023-05-20] MEDS ORDERED: VERAPAMIL 2.5 MG/ML 2 ML AMP ONE (14:07)
[2023-05-20] MEDS ORDERED: fentaNYL (PF) 50 MCG/ML 2 ML AMP IVP ONE (14:40)
[2023-05-20] MEDS ORDERED: LIDOCAINE 1% INJ 10MG/ML (30 ML VIAL-PF) SQ ONE (14:42)
[2023-05-20] MEDS: MIDAZOLAM 2 MG/2 ML VIAL IVP ONE ×2 (14:43→14:55)
[2023-05-20] MEDS ORDERED: VERAPAMIL SYRINGE (5 MG/10 ML) INTRAARTER ONE (14:44)
[2023-05-20] MEDS ORDERED: IV FLUID CONTINUATION 1,000 ML IV ONE (14:45)
[2023-05-20] MEDS ORDERED: HEPARIN SODIUM 1,000 UN/ML (10ML VL) IV ONE (14:55)
[2023-05-20] MEDS ORDERED: IOPAMIDOL-370 100ML BTL INJ ONE (14:59)
[2023-05-20] MEDS ORDERED: RX INFO: IV CONTRAST WAS GIVEN 1 EACH MISC MISCELLANE PRN (15:09)
[2023-05-20] MEDS ORDERED: SODIUM CHLORIDE 0.9% 1,000 ML IV SCH (15:15)
--- NOTE | 2023-05-20 15:16 | P.CARDCATH ---
Date of Procedure: 05/20/23 Description of Procedure: Cardiac Catheterization: The patient is a 48-year-old male with a history of hypertension, hyperlipidemia, chronic tobacco use and diabetes who presented with symptoms of dyspnea and fatigue for one week and was noted to have a troponin about 32 with significant worsening renal function. He was evaluated nephrology service and hydrated with some improvement in his renal functions. Recommendations were made regarding cardiac catheterization, the risks and the complications were discussed with the patient who is in full understanding and agreement. Procedure Description: Patient was brought to label pinker in fasting semi-sedated state after receiving Fentanyl and Benadryl achieiving moderate conscious sedated state. Using Xylocaine Anesthesia and Seldinger technique, a 6-Armenian sheath was introduced in the right radial artery . Subsequently, selective coronary angiography was performed using a 5-Armenian 3.5 bend Valeria catheter. Multiple views of the coronary artery including hemiaxial views were obtained. The right Valeria catheter was used to cross the aortic valve and LVEDP was calculated. Following that, catheter and sheath were removed. Hemostasis was obtained with deployment of TR band . There was no immediate complication. Patient was returned to room in stable condition. Of note, the patient received a total of 5000 units of intravenous heparin as well as intra-arterial verapamil. Severe tortuosity of the takeoff of the right subclavian was noted. Findings: Left main: This is a large size vessel, bifurcating into LAD and left circumflex, left main has no evidence of obstructive disease LAD: This is a large size vessel, reaching to the apex, giving rise to a diagonal branch of moderate caliber. The LAD in the proximal to midsegment has intimal diffuse disease up to 30-40% with no high-grade stenosis. Left circumflex: This is a codominant vessel giving rise to 2 obtuse margin branch. The left circumflex has diffuse intimal disease with area of stenosis up to 50-60% involving the mid and distal segment. RCA: This vessel is totally occluded in the midsegment with minimal antegrade flow. There is collaterals through the septal field marketing representative to the right PDA that appears to be diffusely diseased. Left Ventriculogram: Not performed Hemodynamics: There was no gradient across the aortic valve , LVEDP was 18-22 mmHg Conclusion: 1. Mild diffuse disease in the LAD 2. Moderate disease in the left circumflex 3. Totally occluded mid RCA with collaterals from the left system 4. Elevated LVEDP Recommendations: At this time on maximize medical therapy in view of his chronic kidney disease and depending on his progress recommendations will be made regarding the option of percutaneous revascularization. The findings and the recommendations were discussed with the patient and the family and they were in full understanding and agreement. Duration of sedation is 18 minutes.
[2023-05-20 16:34] LABS: Glucose,Whole Blood 159 mg/dL (70-110)
[2023-05-20] MEDS: CLOPIDOGREL 75 MG TAB PO SCH (16:37)
[2023-05-20 19:54] LABS: Glucose,Whole Blood 149 mg/dL (70-110)
[2023-05-20] MEDS: METOPROLOL TARTRATE 50 MG TAB PO SCH (20:57)
[2023-05-21 06:31] LABS: Glucose,Whole Blood 192 mg/dL (70-110)
[2023-05-21] MEDS: INSULIN ASPART (NovoLOG) 100 UNIT/ML VIAL SQ SCH ×4 (06:58→19:55)
[2023-05-21] MEDS: SODIUM CHLORIDE 0.9% 1,000 ML IV SCH (06:59)
[2023-05-21 07:50] LABS: African American GFR (CKD) 24 (>60 ml/min/1.73 sqM); Anion Gap 9 mmol/L; Blood Urea Nitrogen 41 mg/dL (9-20); Calcium 8.5 mg/dL (8.4-10.2); Carbon Dioxide 19 mmol/L (22-30); Chloride 113 mmol/L (98-107); Glucose 175 mg/dL (74-99); Magnesium 1.9 mg/dL (1.6-2.3); Non-African American GFR(CKD) 21 (>60 ml/min/1.73 sqM); Potassium 5.3 mmol/L (3.5-5.1); Sodium 141 mmol/L (137-145)
[2023-05-21] MEDS: ASPIRIN 81 MG PO SCH (08:01)
[2023-05-21] MEDS: ATORVASTATIN 80 MG TAB PO SCH (08:04)
[2023-05-21] MEDS: ISOSORBIDE MONONITRATE ER 30 MG TAB.ER.24H PO SCH (08:04)
[2023-05-21] MEDS: CLOPIDOGREL 75 MG TAB PO SCH (08:04)
[2023-05-21] MEDS: SODIUM BICARBONATE TAB 650 MG TAB PO SCH ×2 (08:05→19:56)
[2023-05-21] MEDS: METOPROLOL TARTRATE 50 MG TAB PO SCH ×2 (08:05→19:56)
[2023-05-21] MEDS: SODIUM FERRIC GLUCONAT-SUCROSE 125 MG in SODIUM CHLORIDE 0.9% 100 ML IVPB SCH (09:26)
--- NOTE | 2023-05-21 10:05 | P.PN ---
Subjective Patient is seen in follow-up for acute kidney injury on chronic kidney disease. Renal function little better. IV fluids discontinued last night. Admits to good urine output. Hemodynamically stable. Vital signs are stable. General: No acute distress. HEENT: Head exam is unremarkable. LUNGS: No audible rhonchi or wheezes. HEART: Rate and Rhythm are regular. ABDOMEN: Nontender. EXTREMITITES: No edema. Objective - Vital Signs Vital signs: Vital Signs Temp 98.9 F 05/21/23 07:59 Pulse 92 05/21/23 07:59 Resp 16 05/21/23 07:59 BP 157/95 05/21/23 07:59 Pulse Ox 99 05/21/23 07:59 FiO2 Intake & Output 05/20/23 05/21/23 05/21/23 18:59 06:59 18:59 Intake Total 100 110 Balance 100 110 Intake: IV 100 Oral 110 Other: Voiding Method Urinal Urinal Toilet Urinal # Voids 2 - Labs CBC & Chem 7: 05/20/23 07:01 05/21/23 07:24 Labs: Abnormal Lab Results - Last 24 Hours (Table) 05/20/23 05/20/23 05/20/23 Range/Units 11:30 16:32 19:53 Potassium (3.5-5.1) mmol/L Chloride (98-107) mmol/L Carbon Dioxide (22-30) mmol/L BUN (9-20) mg/dL Creatinine (0.66-1.25) mg/dL Glucose (74-99) mg/dL POC Glucose (mg/dL) 117 H 159 H 149 H (70-110) mg/dL 05/21/23 05/21/23 Range/Units 06:25 07:24 Potassium 5.3 H (3.5-5.1) mmol/L Chloride 113 H (98-107) mmol/L Carbon Dioxide 19 L (22-30) mmol/L BUN 41 H (9-20) mg/dL Creatinine 3.28 H (0.66-1.25) mg/dL Glucose 175 H (74-99) mg/dL POC Glucose (mg/dL) 192 H (70-110) mg/dL Assessment and Plan Plan: assessment: 1. Acute kidney injury secondary to ATN versus progression of underlying chronic kidney disease. No evidence of hydronephrosis noted on kidney ultrasound. Creatinine peaked at 4.0 to this admission and is 3.28 today. 2. Chronic kidney disease stage IIIa with baseline creatinine near 1.6 in November 2021. Suspect diabetic kidney disease. Proteinuria noted on UA. 3. Elevated troponins concerning for acute MN. Cardiology following. Status post cardiac catheterization 05/20/2023 which showed mild diffuse disease in the LAD, moderate disease in the left circumflex and occluded mid RCA with collaterals. 4. Metabolic acidosis secondary to acute kidney injury and IV fluids. On oral bicarb. 5. Anemia of chronic kidney disease. Iron deficiency noted. 6. Diabetes mellitus. 7. Moderate tricuspid regurgitation with preserved ejection fraction. 8. Hypertension with chronic kidney disease. Plan: Encourage oral intake. Maintain IV iron. Avoid nephrotoxins. Continue to monitor renal function and urine output. Monitor for contrast-induced acute kidney injury. Blood sugar control. Add amlodipine 5 mg once daily.
[2023-05-21 11:18] LABS: Glucose,Whole Blood 172 mg/dL (70-110)
[2023-05-21] MEDS: amLODIPine 5 MG TAB PO SCH (11:25)
[2023-05-21] MEDS: ACETAMINOPHEN TAB 325 MG TAB PO PRN ×2 (11:29→19:55)
--- NOTE | 2023-05-21 13:37 | P.PN ---
Subjective Progress Note Date: 05/21/23 patient is a 48-year-old gentleman with past medical significant for hypertension, diabetes mellitus presented to the ER because of shortness of breath that started since last . Patient stated that he gets short of breath on exertion. Patient also complaining of shortness of breath at rest. There was also complaining of swelling of feet. There was no complaint of chest pain. There was no complain of palpitation. Denied any fever or chills. Patient did complain of nausea and vomiting on occasions. Because of this worsening shortness of breath, patient came to the ER Initial blood work in the ER showed WBC 13.6, hemoglobin 9.6, platelet count 317, sodium 141, potassium 4.3, BU and 55, creatinine 3.96 and troponin 34.500 Initial chest x-ray in the ER showed cardiomegaly without pulmonary vascular congestion or focal airspace consolidation EKG done showed a depression in lead 2, 3 and aVF Ultrasound of kidneys done showed bilateral cortical thinning correlate for chronic medical renal disease Patient admitted to medicine service 05/18. Patient seen and examined. States shortness of breath is improved. Denies any chest pain. Family at the bedside, questions answered. 05/19. Patient seen and examined. Lab work this morning showed BUN of 46, creatinine 3.31. Denies any chest pain 05/20. Patient seen and examined. Currently nothing by mouth going for cardiac cath today. 05/21. Patient seen and examined. Status post cardiac Mild diffuse disease in the LAD, Moderate disease in the left circumflex, Totally occluded mid RCA with collaterals from the left system . Cardiology recommended maximizing medical treatment Patient was sitting upright in the bed, eating his lunch. REVIEW OF SYSTEMS: CONSTITUTIONAL: No fever, no malaise,. CARDIOVASCULAR: No chest pain, no palpitations, no syncope. PULMONARY: No shortness of breath, no cough, GASTROINTESTINAL: No diarrhea, no nausea, no vomiting, no abdominal pain. NEUROLOGICAL: No headaches, no weakness, PHYSICAL EXAMINATION: GENERAL: The patient is alert and oriented x3, not in any acute distress. Well developed, well nourished. HEENT: Pupils are round and equally reacting to light. EOMI. No scleral icterus. No conjunctival pallor. Normocephalic, atraumatic. No pharyngeal erythema. No thyromegaly. CARDIOVASCULAR: S1 and S2 present. No murmurs, rubs, or gallops. PULMONARY: Chest is clear to auscultation, no wheezing or crackles. ABDOMEN: Soft, nontender, nondistended, normoactive bowel sounds. No palpable organomegaly. MUSCULOSKELETAL: No joint swelling or deformity. EXTREMITIES: No cyanosis, clubbing, or pedal edema. NEUROLOGICAL: Gross neurological examination did not reveal any focal deficits. SKIN: No rashes. Assessment and plan Acute non-ST elevation [place] Acute on chronic kidney disease Hypertension [id number] diabetes mellitus Monitor vital signs Monitor CBC Monitor CMP Continue telemetry monitoring Strict I's and O's, daily weights Avoid nephrotoxic agents Continue aspirin, Plavix, Lipitor Continue IV iron Continue sodium bicarb tablets Continue sliding scale insulin, avoid oral hypoglycemics Status post cardiac Mild diffuse disease in the LAD, Moderate disease in the left circumflex, Totally occluded mid RCA with collaterals from the left system . Cardiology recommended maximizing medical treatment Follow-up on nephrology recommendations Labs and medication were reviewed.. Continue same treatment. Continue with symptomatic treatment. Resume home medication. Monitor labs and vitals. DVT and GI prophylaxis. Further recommendations as per clinical course of the patient Objective - Vital Signs Vital signs: Vital Signs Temp 98.9 F 05/21/23 07:59 Pulse 92 05/21/23 07:59 Resp 16 05/21/23 07:59 BP 157/95 05/21/23 07:59 Pulse Ox 99 05/21/23 07:59 FiO2 Intake & Output 05/20/23 05/21/23 05/21/23 18:59 06:59 18:59 Intake Total 100 110 Balance 100 110 Intake: IV 100 Oral 110 Other: Voiding Method Urinal Urinal Toilet Urinal # Voids 2 - Labs CBC & Chem 7: 05/20/23 07:01 05/21/23 07:24 Labs: Abnormal Lab Results - Last 24 Hours (Table) 05/20/23 05/20/23 05/20/23 Range/Units 11:30 16:32 19:53 Potassium (3.5-5.1) mmol/L Chloride (98-107) mmol/L Carbon Dioxide (22-30) mmol/L BUN (9-20) mg/dL Creatinine (0.66-1.25) mg/dL Glucose (74-99) mg/dL POC Glucose (mg/dL) 117 H 159 H 149 H (70-110) mg/dL 05/21/23 05/21/23 Range/Units 06:25 07:24 Potassium 5.3 H (3.5-5.1) mmol/L Chloride 113 H (98-107) mmol/L Carbon Dioxide 19 L (22-30) mmol/L BUN 41 H (9-20) mg/dL Creatinine 3.28 H (0.66-1.25) mg/dL Glucose 175 H (74-99) mg/dL POC Glucose (mg/dL) 192 H (70-110) mg/dL
--- NOTE | 2023-05-21 14:57 | P.PN ---
Subjective Progress Note Date: 05/21/23 PROGRESS NOTE The patient is a 48-year-old male with a known history of chronic tobacco use, hypertension and diabetes who presented with symptoms of progressive fatigue and dyspnea since last without any clear chest discomfort. On presentation he was noted to have an abnormal EKG with elevated troponin and significant renal function abnormality. He denies any knowledge of prior cardiac workup or history of myocardial infarction or congestive heart failure. According to him he has been active physically in the past. He denies any peripheral edema, PND or orthopnea. He has no dizziness, palpitations or syncope. His EKG shows sinus mechanism with ST depression in V3 and aVF and QS and aVL. His initial troponin was 34.5 and creatinine of 3.96. Reviewing prior data his creatinine was 1.6-1.8. The patient has a knowledge that he has prior renal abnormalities but has not had for workup. May 18: The patient feels better today, he denies any chest discomfort home dizziness or palpitations. He continues to be on IV heparin. He denies any nausea or vomiting. Hemodynamically he is stable. His creatinine today is 3.72. He is in sinus mechanism. His echocardiogram is pending. May 21: The patient underwent cardiac catheterization yesterday and was found to have totally occluded RCA, diffuse disease in the circumflex of moderate to severe degree with mild to moderate disease in the LAD. He's feeling well today. He denies any chest discomfort, dizziness or palpitations. He denies any nausea. He is ambulating without difficulties. He continues to be in sinus mechanism. Medications: Aspirin, isosorbide 30 mg daily, metoprolol 50 mg twice a day, Lipitor 80 mg daily. Amlodipine 5 mg daily, Plavix 75 mg daily, insulin PHYSICAL EXAMINATION: Blood pressure 160/90 heart rate 70 LUNGS: Clear to auscultation HEART: Regular rate and rhythm, S1, S2. No S3. Systolic ejection murmur ABDOMEN: Soft, nontender, no organomegaly EXTREMETIES: No edema, right radial pulse intact LAB: BUN 41, creatinine 3.28, potassium 5.3 IMPRESSION: 1. Non-STEMI with totally occluded RCA and obstructive disease in the circumflex 2. Acute on chronic kidney disease with acute renal injury 3. Hypertension 4. History of diabetes 5. History of chronic tobacco use 6. History of hyperlipidemia PLAN: 1. I would maximize medical therapy, in view of the absence of any symptoms at this time, the anatomy and the chronic kidney disease we'll continue on medical therapy and obtain an MPI as an outpatient and if there is significant ischemia on the inferior wall and proceed with attempted angioplasty 2. Add hydralazine 3. Follow renal functions 4. Increase physical activity 5. Depending on his progress probable discharge in the next 24-48 hours Objective - Vital Signs Vital signs: Vital Signs Temp 98.2 F 05/21/23 11:24 Pulse 77 05/21/23 11:24 Resp 16 05/21/23 11:24 BP 164/96 05/21/23 11:24 Pulse Ox 100 05/21/23 11:24 FiO2 Intake & Output 05/20/23 05/21/23 05/21/23 18:59 06:59 18:59 Intake Total 100 230 Balance 100 230 Intake: IV 100 10 Invasive Line 2 10 Oral 220 Other: Voiding Method Urinal Urinal Toilet Urinal # Voids 2 2 - Labs CBC & Chem 7: 05/20/23 07:01 05/21/23 07:24 Labs: Abnormal Lab Results - Last 24 Hours (Table) 05/20/23 05/20/23 05/21/23 Range/Units 16:32 19:53 06:25 Potassium (3.5-5.1) mmol/L Chloride (98-107) mmol/L Carbon Dioxide (22-30) mmol/L BUN (9-20) mg/dL Creatinine (0.66-1.25) mg/dL Glucose (74-99) mg/dL POC Glucose (mg/dL) 159 H 149 H 192 H (70-110) mg/dL 05/21/23 05/21/23 Range/Units 07:24 11:16 Potassium 5.3 H (3.5-5.1) mmol/L Chloride 113 H (98-107) mmol/L Carbon Dioxide 19 L (22-30) mmol/L BUN 41 H (9-20) mg/dL Creatinine 3.28 H (0.66-1.25) mg/dL Glucose 175 H (74-99) mg/dL POC Glucose (mg/dL) 172 H (70-110) mg/dL
[2023-05-21 16:19] LABS: Glucose,Whole Blood 188 mg/dL (70-110)
[2023-05-21 19:50] LABS: Glucose,Whole Blood 196 mg/dL (70-110)
[2023-05-21] MEDS: hydrALAZINE HCL 25 MG TAB PO SCH (19:56)
[2023-05-22 06:15] LABS: Glucose,Whole Blood 143 mg/dL (70-110)
[2023-05-22] MEDS: INSULIN ASPART (NovoLOG) 100 UNIT/ML VIAL SQ SCH ×4 (06:22→21:03)
[2023-05-22] MEDS: ATORVASTATIN 80 MG TAB PO SCH (07:59)
[2023-05-22] MEDS: hydrALAZINE HCL 25 MG TAB PO SCH (07:59)
[2023-05-22] MEDS: CLOPIDOGREL 75 MG TAB PO SCH (07:59)
[2023-05-22] MEDS: ISOSORBIDE MONONITRATE ER 30 MG TAB.ER.24H PO SCH (07:59)
[2023-05-22] MEDS: METOPROLOL TARTRATE 50 MG TAB PO SCH ×2 (07:59→21:03)
[2023-05-22] MEDS: ASPIRIN 81 MG PO SCH (07:59)
[2023-05-22] MEDS: SODIUM BICARBONATE TAB 650 MG TAB PO SCH ×2 (07:59→21:03)
[2023-05-22] MEDS: amLODIPine 5 MG TAB PO SCH (08:00)
[2023-05-22 08:42] LABS: African American GFR (CKD) 23 (>60 ml/min/1.73 sqM); Anion Gap 10 mmol/L; Blood Urea Nitrogen 40 mg/dL (9-20); Calcium 8.7 mg/dL (8.4-10.2); Carbon Dioxide 17 mmol/L (22-30); Chloride 113 mmol/L (98-107); Glucose 133 mg/dL (74-99); Magnesium 1.8 mg/dL (1.6-2.3); Non-African American GFR(CKD) 20 (>60 ml/min/1.73 sqM); Potassium 5.4 mmol/L (3.5-5.1); Sodium 140 mmol/L (137-145)
[2023-05-22] MEDS: SODIUM FERRIC GLUCONAT-SUCROSE 125 MG in SODIUM CHLORIDE 0.9% 100 ML IVPB SCH (09:43)
[2023-05-22] MEDS ORDERED: SODIUM BICARB 8.4% 50 ML SYR (1 MEQ/ML) IV STA (10:57)
--- NOTE | 2023-05-22 10:59 | P.PN ---
Subjective Patient is seen in follow-up for acute kidney injury on chronic kidney disease. Renal function fairly stable. Off IV fluids. No vomiting or diarrhea. Admits to good urine output. Hemodynamically stable. Vital signs are stable. General: No acute distress. HEENT: Head exam is unremarkable. LUNGS: No audible rhonchi or wheezes. HEART: Rate and Rhythm are regular. ABDOMEN: Nontender. EXTREMITITES: No edema. Objective - Vital Signs Vital signs: Vital Signs Temp 98.0 F 05/22/23 07:56 Pulse 93 05/22/23 07:56 Resp 18 05/22/23 07:56 BP 162/88 05/22/23 07:56 Pulse Ox 98 05/22/23 07:56 FiO2 Intake & Output 05/21/23 05/22/23 05/22/23 18:59 06:59 18:59 Intake Total 230 20 120 Balance 230 20 120 Intake: IV 10 20 10 Invasive Line 2 10 20 10 Oral 220 110 Other: Voiding Method Toilet Toilet Toilet Urinal Urinal Urinal # Voids 2 2 1 # Bowel Movements 1 1 - Labs CBC & Chem 7: 05/20/23 07:01 05/22/23 07:32 Labs: Abnormal Lab Results - Last 24 Hours (Table) 05/21/23 05/21/23 05/21/23 Range/Units 11:16 16:12 19:49 Potassium (3.5-5.1) mmol/L Chloride (98-107) mmol/L Carbon Dioxide (22-30) mmol/L BUN (9-20) mg/dL Creatinine (0.66-1.25) mg/dL Glucose (74-99) mg/dL POC Glucose (mg/dL) 172 H 188 H 196 H (70-110) mg/dL 05/22/23 05/22/23 Range/Units 06:13 07:32 Potassium 5.4 H (3.5-5.1) mmol/L Chloride 113 H (98-107) mmol/L Carbon Dioxide 17 L (22-30) mmol/L BUN 40 H (9-20) mg/dL Creatinine 3.40 H (0.66-1.25) mg/dL Glucose 133 H (74-99) mg/dL POC Glucose (mg/dL) 143 H (70-110) mg/dL Assessment and Plan Plan: assessment: 1. Acute kidney injury secondary to ATN versus progression of underlying chronic kidney disease. No evidence of hydronephrosis noted on kidney ultrasound. Creatinine peaked at 4.0 to this admission and is fairly stable at 3.4 today. Underwent cardiac catheterization on 05/20/2023. 2. Chronic kidney disease stage IIIa with baseline creatinine near 1.6 in November 2021. Suspect diabetic kidney disease. Proteinuria noted on UA. 3. Elevated troponins concerning for acute ID. Cardiology following. Status post cardiac catheterization 05/20/2023 which showed mild diffuse disease in the LAD, moderate disease in the left circumflex and occluded mid RCA with collaterals. 4. Metabolic acidosis secondary to acute kidney injury and IV fluids. On oral bicarb. 5. Anemia of chronic kidney disease. Iron deficiency noted. 6. Diabetes mellitus. 7. Moderate tricuspid regurgitation with preserved ejection fraction. 8. Hypertension with chronic kidney disease. 9. Mild metabolic acidosis secondary to acute kidney injury and acidosis. Plan: Encourage oral intake. Maintain IV iron. Avoid nephrotoxins. Continue to monitor renal function and urine output. Monitor for contrast-induced acute kidney injury. Blood sugar control. Amlodipine added yesterday. Increase dose of hydralazine. 2 A of sodium bicarb IV push today. Add lokelma 10 g daily x 3 days. Repeat BMP and magnesium level 2-3 days postdischarge. Follow up outpatient in 1 week. Advised patient to monitor his blood pressure at home and to notify physician if staying above 130/80.
[2023-05-22 11:18] LABS: Glucose,Whole Blood 204 mg/dL (70-110)
[2023-05-22] MEDS: SODIUM ZIRCONIUM CYCLOSILICATE 10 GM PACKET PO SCH (12:30)
--- NOTE | 2023-05-22 13:20 | P.PN ---
Subjective Progress Note Date: 05/22/23 patient is a 48-year-old gentleman with past medical significant for hypertension, diabetes mellitus presented to the ER because of shortness of breath that started since last . Patient stated that he gets short of breath on exertion. Patient also complaining of shortness of breath at rest. There was also complaining of swelling of feet. There was no complaint of chest pain. There was no complain of palpitation. Denied any fever or chills. Patient did complain of nausea and vomiting on occasions. Because of this worsening shortness of breath, patient came to the ER Initial blood work in the ER showed WBC 13.6, hemoglobin 9.6, platelet count 317, sodium 141, potassium 4.3, BU and 55, creatinine 3.96 and troponin 34.500 Initial chest x-ray in the ER showed cardiomegaly without pulmonary vascular congestion or focal airspace consolidation EKG done showed a depression in lead 2, 3 and aVF Ultrasound of kidneys done showed bilateral cortical thinning correlate for chronic medical renal disease Patient admitted to medicine service 05/18. Patient seen and examined. States shortness of breath is improved. Denies any chest pain. Family at the bedside, questions answered. 05/19. Patient seen and examined. Lab work this morning showed BUN of 46, creatinine 3.31. Denies any chest pain 05/20. Patient seen and examined. Currently nothing by mouth going for cardiac cath today. 05/21. Patient seen and examined. Status post cardiac Mild diffuse disease in the LAD, Moderate disease in the left circumflex, Totally occluded mid RCA with collaterals from the left system . Cardiology recommended maximizing medical treatment Patient was sitting upright in the bed, eating his lunch. 05/22. Patient seen and examined. Potassium this morning is 5.4, BUN is 40, creatinine 3.40 REVIEW OF SYSTEMS: CONSTITUTIONAL: No fever, no malaise,. CARDIOVASCULAR: No chest pain, no palpitations, no syncope. PULMONARY: No shortness of breath, no cough, GASTROINTESTINAL: No diarrhea, no nausea, no vomiting, no abdominal pain. NEUROLOGICAL: No headaches, no weakness, PHYSICAL EXAMINATION: GENERAL: The patient is alert and oriented x3, not in any acute distress. Well developed, well nourished. HEENT: Pupils are round and equally reacting to light. EOMI. No scleral icterus. No conjunctival pallor. Normocephalic, atraumatic. No pharyngeal erythema. No thyromegaly. CARDIOVASCULAR: S1 and S2 present. No murmurs, rubs, or gallops. PULMONARY: Chest is clear to auscultation, no wheezing or crackles. ABDOMEN: Soft, nontender, nondistended, normoactive bowel sounds. No palpable organomegaly. MUSCULOSKELETAL: No joint swelling or deformity. EXTREMITIES: No cyanosis, clubbing, or pedal edema. NEUROLOGICAL: Gross neurological examination did not reveal any focal deficits. SKIN: No rashes. Assessment and plan Acute non-ST elevation [place] Acute on chronic kidney disease Hypertension [id number]-zqelpxdmc diabetes mellitus Monitor vital signs Monitor CBC Monitor CMP Continue telemetry monitoring Strict I's and O's, daily weights Avoid nephrotoxic agents Low potassium diet Continue aspirin, Plavix, Lipitor Continue IV iron Continue sodium bicarb tablets Continue Loklema for 3 days Continue sliding scale insulin, avoid oral hypoglycemics Status post cardiac Mild diffuse disease in the LAD, Moderate disease in the left circumflex, Totally occluded mid RCA with collaterals from the left system . Cardiology recommended maximizing medical treatment Follow-up on nephrology recommendations Labs and medication were reviewed.. Continue same treatment. Continue with symptomatic treatment. Resume home medication. Monitor labs and vitals. DVT and GI prophylaxis. Further recommendations as per clinical course of the patient Objective - Vital Signs Vital signs: Vital Signs Temp 98.0 F 05/22/23 07:56 Pulse 93 05/22/23 07:56 Resp 18 05/22/23 07:56 BP 162/88 05/22/23 07:56 Pulse Ox 98 05/22/23 07:56 FiO2 Intake & Output 05/21/23 05/22/23 05/22/23 18:59 06:59 18:59 Intake Total 230 20 120 Balance 230 20 120 Intake: IV 10 20 10 Invasive Line 2 10 20 10 Oral 220 110 Other: Voiding Method Toilet Toilet Toilet Urinal Urinal Urinal # Voids 2 2 1 # Bowel Movements 1 1 - Labs CBC & Chem 7: 05/20/23 07:01 05/22/23 07:32 Labs: Abnormal Lab Results - Last 24 Hours (Table) 05/21/23 05/21/23 05/21/23 Range/Units 11:16 16:12 19:49 Potassium (3.5-5.1) mmol/L Chloride (98-107) mmol/L Carbon Dioxide (22-30) mmol/L BUN (9-20) mg/dL Creatinine (0.66-1.25) mg/dL Glucose (74-99) mg/dL POC Glucose (mg/dL) 172 H 188 H 196 H (70-110) mg/dL 05/22/23 05/22/23 Range/Units 06:13 07:32 Potassium 5.4 H (3.5-5.1) mmol/L Chloride 113 H (98-107) mmol/L Carbon Dioxide 17 L (22-30) mmol/L BUN 40 H (9-20) mg/dL Creatinine 3.40 H (0.66-1.25) mg/dL Glucose 133 H (74-99) mg/dL POC Glucose (mg/dL) 143 H (70-110) mg/dL
--- NOTE | 2023-05-22 14:55 | P.PN ---
Subjective Progress Note Date: 05/22/23 PROGRESS NOTE The patient is a 48-year-old male with a known history of chronic tobacco use, hypertension and diabetes who presented with symptoms of progressive fatigue and dyspnea since last without any clear chest discomfort. On presentation he was noted to have an abnormal EKG with elevated troponin and significant renal function abnormality. He denies any knowledge of prior cardiac workup or history of myocardial infarction or congestive heart failure. According to him he has been active physically in the past. He denies any peripheral edema, PND or orthopnea. He has no dizziness, palpitations or syncope. His EKG shows sinus mechanism with ST depression in V3 and aVF and QS and aVL. His initial troponin was 34.5 and creatinine of 3.96. Reviewing prior data his creatinine was 1.6-1.8. The patient has a knowledge that he has prior renal abnormalities but has not had for workup. May 18: The patient feels better today, he denies any chest discomfort home dizziness or palpitations. He continues to be on IV heparin. He denies any nausea or vomiting. Hemodynamically he is stable. His creatinine today is 3.72. He is in sinus mechanism. His echocardiogram is pending. May 21: The patient underwent cardiac catheterization yesterday and was found to have totally occluded RCA, diffuse disease in the circumflex of moderate to severe degree with mild to moderate disease in the LAD. He's feeling well today. He denies any chest discomfort, dizziness or palpitations. He denies any nausea. He is ambulating without difficulties. He continues to be in sinus mechanism. May 22: The patient is feeling better today, he has no chest discomfort, he has mild dyspnea but no dizziness or palpitations. He is ambulating without difficulties. He denies any nausea or vomiting. He is in sinus mechanism. His blood pressure remains elevated at times. Medications: Aspirin, isosorbide 30 mg daily, metoprolol 50 mg twice a day, Lipitor 80 mg daily. Amlodipine 5 mg daily, Plavix 75 mg daily, insulin, hydralazine 25 mg twice a day PHYSICAL EXAMINATION: Blood pressure 153/80 heart rate 82 LUNGS: Clear to auscultation HEART: Regular rate and rhythm, S1, S2. No S3. Systolic ejection murmur ABDOMEN: Soft, nontender, no organomegaly EXTREMETIES: No edema, LAB: BUN 40, creatinine 3.40, potassium 5.4 IMPRESSION: 1. Non-STEMI with totally occluded RCA and obstructive disease in the circumflex 2. Acute on chronic kidney disease with acute renal injury 3. Hypertension, remains elevated 4. History of diabetes 5. History of chronic tobacco use 6. History of hyperlipidemia PLAN: 1. I would maximize medical therapy, in view of the absence of any symptoms at this time, the anatomy and the chronic kidney disease we'll continue on medical therapy and obtain an MPI as an outpatient and if there is significant ischemia on the inferior wall and proceed with attempted angioplasty 2. Increase hydralazine hydralazine 3. Follow renal functions 4. Increase physical activity 5. Depending on his progress probable discharge in the next 24-48 hours Objective - Vital Signs Vital signs: Vital Signs Temp 98.1 F 05/22/23 12:28 Pulse 82 05/22/23 12:28 Resp 18 05/22/23 12:28 BP 153/87 05/22/23 12:28 Pulse Ox 99 05/22/23 12:28 FiO2 Intake & Output 05/21/23 05/22/23 05/22/23 18:59 06:59 18:59 Intake Total 230 20 370 Balance 230 20 370 Intake: IV 10 20 20 Invasive Line 2 10 20 20 Oral 220 350 Other: Voiding Method Toilet Toilet Toilet Urinal Urinal Urinal # Voids 2 2 1 # Bowel Movements 1 1 - Labs CBC & Chem 7: 05/20/23 07:01 05/22/23 07:32 Labs: Abnormal Lab Results - Last 24 Hours (Table) 05/21/23 05/21/23 05/22/23 Range/Units 16:12 19:49 06:13 Potassium (3.5-5.1) mmol/L Chloride (98-107) mmol/L Carbon Dioxide (22-30) mmol/L BUN (9-20) mg/dL Creatinine (0.66-1.25) mg/dL Glucose (74-99) mg/dL POC Glucose (mg/dL) 188 H 196 H 143 H (70-110) mg/dL 05/22/23 05/22/23 Range/Units 07:32 11:16 Potassium 5.4 H (3.5-5.1) mmol/L Chloride 113 H (98-107) mmol/L Carbon Dioxide 17 L (22-30) mmol/L BUN 40 H (9-20) mg/dL Creatinine 3.40 H (0.66-1.25) mg/dL Glucose 133 H (74-99) mg/dL POC Glucose (mg/dL) 204 H (70-110) mg/dL
[2023-05-22 16:17] LABS: Glucose,Whole Blood 131 mg/dL (70-110)
[2023-05-22 20:01] LABS: Glucose,Whole Blood 297 mg/dL (70-110)
[2023-05-22] MEDS: hydrALAZINE HCL 50 MG TAB PO SCH (21:03)
[2023-05-22] MEDS: ACETAMINOPHEN TAB 325 MG TAB PO PRN (21:22)
[2023-05-23 06:22] LABS: Glucose,Whole Blood 171 mg/dL (70-110)
[2023-05-23] MEDS: INSULIN ASPART (NovoLOG) 100 UNIT/ML VIAL SQ SCH ×2 (06:32→12:15)
[2023-05-23 08:32] LABS: HCT 25.4 % (39.0-53.0); HGB 8.2 gm/dL (13.0-17.5); MCH 28.9 pg (25.0-35.0); MCHC 32.4 g/dL (31.0-37.0); MCV 89.2 fL (80.0-100.0); Mean Platelet Volume 7.8; Platelet Count 316 k/uL (150-450); RBC 2.85 m/uL (4.30-5.90); RDW 13.4 % (11.5-15.5); WBC 12.5 k/uL (3.8-10.6)
[2023-05-23] MEDS: ATORVASTATIN 80 MG TAB PO SCH (08:43)
[2023-05-23] MEDS: METOPROLOL TARTRATE 50 MG TAB PO SCH (08:43)
[2023-05-23] MEDS: hydrALAZINE HCL 50 MG TAB PO SCH (08:43)
[2023-05-23] MEDS: CLOPIDOGREL 75 MG TAB PO SCH (08:43)
[2023-05-23] MEDS: amLODIPine 5 MG TAB PO SCH (08:43)
[2023-05-23] MEDS: SODIUM ZIRCONIUM CYCLOSILICATE 10 GM PACKET PO SCH (08:43)
[2023-05-23] MEDS: SODIUM BICARBONATE TAB 650 MG TAB PO SCH (08:43)
[2023-05-23] MEDS: ASPIRIN 81 MG PO SCH (08:43)
[2023-05-23] MEDS: ISOSORBIDE MONONITRATE ER 30 MG TAB.ER.24H PO SCH (08:43)
[2023-05-23 08:47] LABS: ALT 29 U/L (4-49); AST 25 U/L (17-59); African American GFR (CKD) 24 (>60 ml/min/1.73 sqM); Albumin 2.7 g/dL (3.5-5.0); Alkaline Phosphatase 91 U/L (38-126); Anion Gap 8 mmol/L; Blood Urea Nitrogen 41 mg/dL (9-20); Calcium 7.9 mg/dL (8.4-10.2); Carbon Dioxide 23 mmol/L (22-30); Chloride 109 mmol/L (98-107); Glucose 185 mg/dL (74-99); Non-African American GFR(CKD) 21 (>60 ml/min/1.73 sqM); Potassium 4.3 mmol/L (3.5-5.1); Sodium 140 mmol/L (137-145); Total Bilirubin 0.2 mg/dL (0.2-1.3); Total Protein 5.3 g/dL (6.3-8.2)
[2023-05-23 09:14] VITALS: RESP 16; TEMP 98.2
[2023-05-23 11:24] LABS: Glucose,Whole Blood 220 mg/dL (70-110)
--- NOTE | 2023-05-23 11:55 | P.PN ---
Subjective Patient is seen for follow-up for acute kidney injury on top of chronic kidney disease. Renal function is stable with serum creatinine staying at 3.2-3.4 mg/dL. Currently not on diuretics or IV fluids. No significant complaints today. Objective - Vital Signs Vital signs: Vital Signs Temp 98.2 F 05/23/23 08:40 Pulse 88 05/23/23 08:40 Resp 16 05/23/23 08:40 BP 151/89 05/23/23 08:40 Pulse Ox 97 05/23/23 08:40 FiO2 Intake & Output 05/22/23 05/23/23 05/23/23 18:59 06:59 18:59 Intake Total 610 118 Balance 610 118 Intake: IV 20 Invasive Line 2 20 Oral 590 118 Other: Voiding Method Toilet Toilet Toilet Urinal Urinal Urinal # Voids 1 1 # Bowel Movements 1 - Exam Patient is awake, comfortable, no acute distress Examination of the heart S1 and S2 Examination the lungs bilateral breath sounds are heard Abdomen is soft nontender Examination of the lower extremity shows no significant edema 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 - Labs CBC & Chem 7: 05/23/23 08:04 05/23/23 08:04 Labs: Abnormal Lab Results - Last 24 Hours (Table) 05/22/23 05/22/23 05/23/23 Range/Units 16:13 19:59 06:21 WBC (3.8-10.6) k/uL RBC (4.30-5.90) m/uL Hgb (13.0-17.5) gm/dL Hct (39.0-53.0) % Chloride (98-107) mmol/L BUN (9-20) mg/dL Creatinine (0.66-1.25) mg/dL Glucose (74-99) mg/dL POC Glucose (mg/dL) 131 H 297 H 171 H (70-110) mg/dL Calcium (8.4-10.2) mg/dL Total Protein (6.3-8.2) g/dL Albumin (3.5-5.0) g/dL 05/23/23 05/23/23 05/23/23 Range/Units 08:04 08:04 11:22 WBC 12.5 H (3.8-10.6) k/uL RBC 2.85 L (4.30-5.90) m/uL Hgb 8.2 L (13.0-17.5) gm/dL Hct 25.4 L (39.0-53.0) % Chloride 109 H (98-107) mmol/L BUN 41 H (9-20) mg/dL Creatinine 3.30 H (0.66-1.25) mg/dL Glucose 185 H (74-99) mg/dL POC Glucose (mg/dL) 220 H (70-110) mg/dL Calcium 7.9 L (8.4-10.2) mg/dL Total Protein 5.3 L (6.3-8.2) g/dL Albumin 2.7 L (3.5-5.0) g/dL Assessment and Plan Assessment: 1. Acute kidney injury secondary to ATN versus progression of underlying chronic kidney disease. No evidence of hydronephrosis noted on kidney ultrasound. Creatinine peaked at 4.0 to this admission and is fairly stable at 3.3 today. Underwent cardiac catheterization on 05/20/2023. 2. Chronic kidney disease stage IIIa with baseline creatinine near 1.6 in November 2021. Suspect diabetic kidney disease. Proteinuria noted on UA. 3. Elevated troponins concerning for acute PR. Cardiology following. Status post cardiac catheterization 05/20/2023 which showed mild diffuse disease in the LAD, moderate disease in the left circumflex and occluded mid RCA with collaterals. 4. Metabolic acidosis secondary to acute kidney injury and IV fluids. On oral bicarb. 5. Anemia of chronic kidney disease. Iron deficiency noted. 6. Diabetes mellitus. 7. Moderate tricuspid regurgitation with preserved ejection fraction. 8. Hypertension with chronic kidney disease. 9. Mild metabolic acidosis secondary to acute kidney injury and acidosis. Plan: Continue to encourage increased oral intake DC lokelma in a.m. Control blood sugars Repeat labs in a.mMustapha Mari at Follow-up as outpatient closely for CK D.
[2023-05-23 12:19] VITALS: BP 145/89; PULSE 81
--- NOTE | 2023-05-23 12:53 | P.PN ---
Subjective Progress Note Date: 05/23/23 PROGRESS NOTE The patient is a 48-year-old male with a known history of chronic tobacco use, hypertension and diabetes who presented with symptoms of progressive fatigue and dyspnea since last without any clear chest discomfort. On presentation he was noted to have an abnormal EKG with elevated troponin and significant renal function abnormality. He denies any knowledge of prior cardiac workup or history of myocardial infarction or congestive heart failure. According to him he has been active physically in the past. He denies any peripheral edema, PND or orthopnea. He has no dizziness, palpitations or syncope. His EKG shows sinus mechanism with ST depression in V3 and aVF and QS and aVL. His initial troponin was 34.5 and creatinine of 3.96. Reviewing prior data his creatinine was 1.6-1.8. The patient has a knowledge that he has prior renal abnormalities but has not had for workup. May 18: The patient feels better today, he denies any chest discomfort home dizziness or palpitations. He continues to be on IV heparin. He denies any nausea or vomiting. Hemodynamically he is stable. His creatinine today is 3.72. He is in sinus mechanism. His echocardiogram is pending. May 21: The patient underwent cardiac catheterization yesterday and was found to have totally occluded RCA, diffuse disease in the circumflex of moderate to severe degree with mild to moderate disease in the LAD. He's feeling well today. He denies any chest discomfort, dizziness or palpitations. He denies any nausea. He is ambulating without difficulties. He continues to be in sinus mechanism. May 22: The patient is feeling better today, he has no chest discomfort, he has mild dyspnea but no dizziness or palpitations. He is ambulating without difficulties. He denies any nausea or vomiting. He is in sinus mechanism. His blood pressure remains elevated at times. 05/23 Patient is seen today in follow-up. He states he is feeling better. He denies having any lightheadedness or dizziness, no shortness of breath. No chest pain. Heart rate is running in the 80s, blood pressure 145/89. Repeat blood work reveals WBC 12.5, hemoglobin 8.2, BUN 41 and creatinine 3.3. PHYSICAL EXAMINATION: LUNGS: Clear to auscultation HEART: Regular rate and rhythm, S1, S2. No S3. Systolic ejection murmur ABDOMEN: Soft, nontender, no organomegaly EXTREMETIES: No edema, IMPRESSION: 1. Non-STEMI with totally occluded RCA and obstructive disease in the circumflex 2. Acute on chronic kidney disease with acute renal injury 3. Hypertension, remains elevated 4. History of diabetes 5. History of chronic tobacco use 6. History of hyperlipidemia PLAN: I would maximize medical therapy, in view of the absence of any symptoms at this time, the anatomy and the chronic kidney disease we'll continue on medical therapy and obtain an MPI as an outpatient and if there is significant ischemia on the inferior wall and proceed with attempted angioplasty transfer text Nurse practitioner note has been reviewed, I agree with the documented findings and plan of care. Patient was seen and examined. Objective - Vital Signs Vital signs: Vital Signs Temp 98.2 F 05/23/23 08:40 Pulse 88 05/23/23 08:40 Resp 16 05/23/23 08:40 BP 151/89 05/23/23 08:40 Pulse Ox 97 05/23/23 08:40 FiO2 Intake & Output 05/22/23 05/23/23 05/23/23 18:59 06:59 18:59 Intake Total 610 118 Balance 610 118 Intake: IV 20 Invasive Line 2 20 Oral 590 118 Other: Voiding Method Toilet Toilet Toilet Urinal Urinal Urinal # Voids 1 1 # Bowel Movements 1 - Labs CBC & Chem 7: 05/23/23 08:04 05/23/23 08:04 Labs: Abnormal Lab Results - Last 24 Hours (Table) 05/22/23 05/22/23 05/23/23 Range/Units 16:13 19:59 06:21 WBC (3.8-10.6) k/uL RBC (4.30-5.90) m/uL Hgb (13.0-17.5) gm/dL Hct (39.0-53.0) % Chloride (98-107) mmol/L BUN (9-20) mg/dL Creatinine (0.66-1.25) mg/dL Glucose (74-99) mg/dL POC Glucose (mg/dL) 131 H 297 H 171 H (70-110) mg/dL Calcium (8.4-10.2) mg/dL Total Protein (6.3-8.2) g/dL Albumin (3.5-5.0) g/dL 05/23/23 05/23/23 05/23/23 Range/Units 08:04 08:04 11:22 WBC 12.5 H (3.8-10.6) k/uL RBC 2.85 L (4.30-5.90) m/uL Hgb 8.2 L (13.0-17.5) gm/dL Hct 25.4 L (39.0-53.0) % Chloride 109 H (98-107) mmol/L BUN 41 H (9-20) mg/dL Creatinine 3.30 H (0.66-1.25) mg/dL Glucose 185 H (74-99) mg/dL POC Glucose (mg/dL) 220 H (70-110) mg/dL Calcium 7.9 L (8.4-10.2) mg/dL Total Protein 5.3 L (6.3-8.2) g/dL Albumin 2.7 L (3.5-5.0) g/dL
[2023-05-23 13:33] VITALS: BMI 38.7
--- NOTE | 2023-05-23 13:35 | P.DS ---
Providers Date of admission: 05/17/23 00:36 Expected date of discharge: 05/23/23 Attending physician: Kev Tierney Consults: 05/17/23 00:36 Consult Physician Routine Consulting Provider: Robert Ernst Consult Reason/Comments: acute on chronic renal failure Do you want consulting provider notified?: Yes Consult Physician Urgent Consulting Provider: Yfn Chahal Consult Reason/Comments: ACS vs missed MS Do you want consulting provider notified?: Already Contacted Primary care physician: Gautam Mata MD Hospital Course: Discharge diagnoses; Acute non-ST elevation MS Acute on chronic kidney disease Hypertension Rur-cmmkcpj-utnrncnaw diabetes mellitus Hospital course; patient is a 48-year-old gentleman with past medical significant for hypertension, diabetes mellitus presented to the ER because of shortness of breath that started since last . Patient stated that he gets short of breath on exertion. Patient also complaining of shortness of breath at rest. There was also complaining of swelling of feet. There was no complaint of chest pain. There was no complain of palpitation. Denied any fever or chills. Patie nt did complain of nausea and vomiting on occasions. Because of this worsening shortness of breath, patient came to the ER Initial blood work in the ER showed WBC 13.6, hemoglobin 9.6, platelet count 317, sodium 141, potassium 4.3, BU and 55, creatinine 3.96 and troponin 34.500 Initial chest x-ray in the ER showed cardiomegaly without pulmonary vascular congestion or focal airspace consolidation EKG done showed a depression in lead 2, 3 and aVF Ultrasound of kidneys done showed bilateral cortical thinning correlate for chronic medical renal disease Patient admitted to medicine service 05/18. Patient seen and examined. States shortness of breath is improved. Denies any chest pain. Family at the bedside, questions answered. 05/19. Patient seen and examined. Lab work this morning showed BUN of 46, creatinine 3.31. Denies any chest pain 05/20. Patient seen and examined. Currently nothing by mouth going for cardiac cath today. 05/21. Patient seen and examined. Status post cardiac Mild diffuse disease in the LAD, Moderate disease in the left circumflex, Totally occluded mid RCA with collaterals from the left system . Cardiology recommended maximizing medical treatment Patient was sitting upright in the bed, eating his lunch. 05/22. Patient seen and examined. Potassium this morning is 5.4, BUN is 40, creatinine 3.40 05/23. Patient seen and examined. Hyperkalemia has resolved. Nephrology cleared the patient for discharge. Cardiology recommended maximizing medical therapy, we will follow up outpatient at which time they will do a stress test to determine treatment plan PHYSICAL EXAMINATION: GENERAL: The patient is alert and oriented x3, not in any acute distress. Well developed, well nourished. HEENT: Pupils are round and equally reacting to light. EOMI. No scleral icterus. No conjunctival pallor. Normocephalic, atraumatic. No pharyngeal erythema. No thyromegaly. CARDIOVASCULAR: S1 and S2 present. No murmurs, rubs, or gallops. PULMONARY: Chest is clear to auscultation, no wheezing or crackles. ABDOMEN: Soft, nontender, nondistended, normoactive bowel sounds. No palpable organomegaly. MUSCULOSKELETAL: No joint swelling or deformity. EXTREMITIES: No cyanosis, clubbing, or pedal edema. NEUROLOGICAL: Gross neurological examination did not reveal any focal deficits. SKIN: No rashes. Patient Condition at Discharge: Stable Plan - Discharge Summary Discharge Rx Participant: No New Discharge Prescriptions: New hydrALAZINE HCL [Apresoline] 50 mg PO BID #90 tab Aspirin 81 mg PO DAILY #30 tab Isosorbide Mononitrate ER [Imdur] 30 mg PO DAILY #30 tab Atorvastatin [Lipitor] 80 mg PO DAILY #30 tab Metoprolol Tartrate [Lopressor] 50 mg PO BID #60 tab Nitroglycerin Sl Tabs [Nitrostat] 0.4 mg SUBLINGUAL Q5M PRN #30 tab PRN Reason: Chest Pain amLODIPine [Norvasc] 5 mg PO DAILY #30 tab Clopidogrel [Plavix] 75 mg PO DAILY #30 tab Continue Pioglitazone [Actos] 30 mg PO DAILY Glimepiride [Amaryl] 2 mg PO DAILY Discontinued lisinopriL [Zestril] 2.5 mg PO DAILY Atorvastatin Calcium [Lipitor] 40 mg PO DAILY #0 Discharge Medication List Glimepiride [Amaryl] 2 mg PO DAILY 11/18/21 [History] Pioglitazone [Actos] 30 mg PO DAILY 05/17/23 [History] Aspirin 81 mg PO DAILY #30 tab 05/23/23 [Rx] Atorvastatin [Lipitor] 80 mg PO DAILY #30 tab 05/23/23 [Rx] Clopidogrel [Plavix] 75 mg PO DAILY #30 tab 05/23/23 [Rx] Isosorbide Mononitrate ER [Imdur] 30 mg PO DAILY #30 tab 05/23/23 [Rx] Metoprolol Tartrate [Lopressor] 50 mg PO BID #60 tab 05/23/23 [Rx] Nitroglycerin Sl Tabs [Nitrostat] 0.4 mg SUBLINGUAL Q5M PRN #30 tab 05/23/23 [Rx] amLODIPine [Norvasc] 5 mg PO DAILY #30 tab 05/23/23 [Rx] hydrALAZINE HCL [Apresoline] 50 mg PO BID #90 tab 05/23/23 [Rx] Follow up Appointment(s)/Referral(s): Mari Diamond MD [STAFF PHYSICIAN] - 1 Week Gautam Mata MD [Primary Care Provider] - 1-2 days Casimiro Ferrell MD [STAFF PHYSICIAN] - 1 Week Patient Instructions/Handouts: Acute Coronary Syndrome (DC) Discharge Disposition: HOME SELF-CARE
== END 2023-05-23 15:41 | disposition home or self-care (01) | DRG 190 ==
LOC: EC 18:53 → 3SCARD 05-17 00:36
PROVIDERS: ADMIT Hospitalist; ATTEND Hospitalist
PROC: 05HD33Z Insertion of Infusion Device into Right Cephalic Vein, Percutaneous Approach (ICD-10-PCS; 2023-05-18 08:30)
PROC: 4A023N7 Measurement of Cardiac Sampling and Pressure, Left Heart, Percutaneous Approach (ICD-10-PCS; principal; 2023-05-20 13:53)
PROC: B2111ZZ Fluoroscopy of Multiple Coronary Arteries using Low Osmolar Contrast (ICD-10-PCS; principal; 2023-05-20 13:53)
DX: I21.4 Non-ST elevation (NSTEMI) myocardial infarction (principal); I12.9 Hypertensive chronic kidney disease with stage 1 through stage 4 chronic kidney disease, or unspecified chronic kidney disease; I25.10 Atherosclerotic heart disease of native coronary artery without angina pectoris; E11.22 Type 2 diabetes mellitus with diabetic chronic kidney disease; D63.1 Anemia in chronic kidney disease; E78.5 Hyperlipidemia, unspecified; I07.1 Rheumatic tricuspid insufficiency; I44.0 Atrioventricular block, first degree; D50.9 Iron deficiency anemia, unspecified; F17.210 Nicotine dependence, cigarettes, uncomplicated; N18.31 Chronic kidney disease, stage 3a; N17.0 Acute kidney failure with tubular necrosis; Z79.84 Long term (current) use of oral hypoglycemic drugs; Z79.899 Other long term (current) drug therapy; Z82.49 Family history of ischemic heart disease and other diseases of the circulatory system; Z83.3 Family history of diabetes mellitus; Z20.822 Contact with and (suspected) exposure to COVID-19; Z28.310 Unvaccinated for COVID-19; Z71.3 Dietary counseling and surveillance
CPT/HCPCS: 36410; 36415; 71045; 71046; 76770; 76937; 80048; 80053; 80061; 81001; 82728; 83036; 83540; 83550; 83605; 83735; 84484; 85025; 85027; 85610; 85730; 87636; 93005; 93306; 93458; 93880; 94760; 96365; 96366; 99291

== ENCOUNTER 2023-06-17 17:59 | Emergency (ER) | payer OTHER ==
[2023-06-17 18:22] VITALS: PULSE 83; TEMP 98.6
--- NOTE | 2023-06-17 18:50 | ED ---
Recheck HPI - General Chief Complaint: Recheck/Abnormal Lab/Rx Stated Complaint: Abnormal Lab Time Seen by Provider: 06/17/23 18:47 Source: patient, RN notes reviewed, old records reviewed Mode of arrival: ambulatory Limitations: no limitations - History of Present Illness Initial Comments: This is a 48-year-old male to the emergency department for evaluation. Patient presents today for evaluation regards to abnormal outpatient lab studies. Patient presents for unknown outpatient lab studies that he was told to come the emergency department tonight. CAMACHO Complaint: abnormal lab (possibly abnormal kidney studies) -: week(s) (patient had lab tests taken a week ago) Returns Today for: Called Because of Abnormal Lab/Test Symptoms Since Prior Visit: no new symptoms Context: planned re-check Associated Symptoms: none Treatments Prior to Arrival: other - Related Data Home Medications Medication Instructions Recorded Confirmed Glimepiride [Amaryl] 2 mg PO DAILY 11/18/21 06/17/23 Pioglitazone [Actos] 30 mg PO DAILY 05/17/23 06/17/23 Nitroglycerin Sl Tabs [Nitrostat] 0.4 mg SL Q5M PRN 06/17/23 06/17/23 Previous Rx's Medication Instructions Recorded Aspirin 81 mg PO DAILY #30 tab 05/23/23 Atorvastatin [Lipitor] 80 mg PO DAILY #30 tab 05/23/23 Clopidogrel [Plavix] 75 mg PO DAILY #30 tab 05/23/23 Isosorbide Mononitrate ER [Imdur] 30 mg PO DAILY #30 tab 05/23/23 Metoprolol Tartrate [Lopressor] 50 mg PO BID #60 tab 05/23/23 amLODIPine [Norvasc] 5 mg PO DAILY #30 tab 05/23/23 hydrALAZINE HCL [Apresoline] 50 mg PO BID #90 tab 05/23/23 Allergies Allergy/AdvReac Type Severity Reaction Status Date / Time No Known Allergies Allergy Verified 06/17/23 20:47 Review of Systems ROS Statement: Those systems with pertinent positive or pertinent negative responses have been documented in the HPI. ROS Other: All systems not noted in ROS Statement are negative. Past Medical History Past Medical History: Coronary Artery Disease (CAD), Diabetes Mellitus, Hyperlipidemia, Hypertension, Myocardial Infarction ([place]) History of Any Multi-Drug Resistant Organisms: None Reported Past Surgical History: Unable to Obtain Past Psychological History: No Psychological Hx Reported Smoking Status: Current every day smoker Past Alcohol Use History: None Reported Past Drug Use History: None Reported - Past Family History Father Family Medical History: Cancer, CVA/TIA Additional Family Medical History / Comment(s): bladder CA Mother Family Medical History: Diabetes Mellitus, Hypertension General Exam Limitations: no limitations General appearance: alert, in no apparent distress Head exam: Present: atraumatic, normocephalic, normal inspection Eye exam: Present: normal appearance, PERRL, EOMI. Absent: scleral icterus, conjunctival injection, periorbital swelling ENT exam: Present: normal exam, mucous membranes moist Neck exam: Present: normal inspection. Absent: tenderness, meningismus, lymphadenopathy Respiratory exam: Present: normal lung sounds bilaterally. Absent: respiratory distress, wheezes, rales, rhonchi, stridor Cardiovascular Exam: Present: regular rate, normal rhythm, normal heart sounds. Absent: systolic murmur, diastolic murmur, rubs, gallop, clicks GI/Abdominal exam: Present: soft, normal bowel sounds. Absent: distended, tenderness, guarding, rebound, rigid Extremities exam: Present: normal inspection, full ROM, normal capillary refill. Absent: tenderness, pedal edema, joint swelling, calf tenderness Back exam: Present: normal inspection Neurological exam: Present: alert, oriented X3, CN II-XII intact Psychiatric exam: Present: normal affect, normal mood Skin exam: Present: warm, dry, intact, normal color. Absent: rash Course Vital Signs 06/17/23 06/17/23 06/17/23 18:19 21:09 22:03 Temperature 98.6 F Pulse Rate 83 83 83 Respiratory 20 18 18 Rate Blood Pressure 133/85 149/83 140/78 O2 Sat by Pulse 99 99 99 Oximetry - Reevaluation(s) Reevaluation #1: 06/17/23 21:33 medical records reviewed Reevaluation #2: 06/17/23 21:34 patient still asymptomatic Reevaluation #3: 06/17/23 21:34 patient informed of results and questions answered Reevaluation #4: 06/17/23 21:34 Was pt. sent in by a medical professional or institution (, PA, DISCHARGE COORDINATOR, urgent care, hospital, or fpc...) When possible be specific @ -no Did you speak to anyone other than the patient for history (EMS, parent, family, police, friend...)? What history was obtained from this source @ -no Did you review nursing and triage notes (agree or disagree)? Why? @ -agree Are old charts reviewed (outside hosp., previous admission, EMS record, old EKG, old radiological studies, urgent care reports/EKG's, fpc records)? Report findings @ -yes Differential Diagnosis (chest pain, altered mental status, abdominal pain women, abdominal pain men, vaginal bleeding, weakness, fever, dyspnea, syncope, headache, dizziness, GI bleed, back pain, seizure, CVA, palpatations, mental health, musculoskeletal)? @ -prior EKG interpreted by me (3pts min.). @ -no X-rays interpreted by me (1pt min.). @ -no CT interpreted by me (1pt min.). @ -no U/S interpreted by me (1pt. min.). @ -no What testing was considered but not performed or refused? (CT, X-rays, U/S, labs)? Why? @ -none What meds were considered but not given or refused? Why? @ -none Did you discuss the management of the patient with other professionals (professionals i.e. , PA, DISCHARGE COORDINATOR, lab, RT, psych nurse, social worker psychiatric, social worker psychiatric, teacher, chief supply chain officer, medical case worker)? Give summary @ -no Was smoking cessation discussed for >3mins.? @ -no Was critical care preformed (if so, how long)? @ -no Were there social determinants of health that impacted care today? How? (Homelessness, low income, unemployed, alcoholism, drug addiction, transportat ion, low edu. Level, literacy, decrease access to med. care, correction, rehab)? @ -none Was there de-escalation of care discussed even if they declined (Discuss DNR or withdrawal of care, Hospice)? DNR status @ -no What co-morbidities impacted this encounter? (DM, HTN, Smoking, COPD, CAD, Cancer, CVA, ARF, Chemo, Hep., AIDS, mental health diagnosis, sleep apnea, morbid obesity)? @ -none Was patient admitted / discharged? Hospital course, mention meds given and route, prescriptions, significant lab abnormalities, going to OR and other pertinent info. @ - 48 male sent for abnormal kidney function labs. Lab values are relatively unchanged from patient's baseline unsure of what outpatient lab studies showed is a do not have access to those. I did speak with nephrology who is okay with patient on discharge Discharged Undiagnosed new problem with uncertain prognosis? @ -no Drug Therapy requiring intensive monitoring for toxicity (Heparin, Nitro, Insulin, Cardizem)? @ -no Were any procedures done? @ -no Diagnosis/symptom? @ -Normal exam and normal testing Acute, or Chronic, or Acute on Chronic? @ -Acute Uncomplicated (without systemic symptoms) or Complicated (systemic symptoms)? @ -Complicated Side effects of treatment? @ -no Exacerbation, Progression, or Severe Exacerbation? @ -exacerbation Poses a threat to life or bodily function? How? (Chest pain, [place], [place], pneumonia, PE, COPD, DKA, ARF, appy, cholecystitis, CVA, Diverticulitis, Homicidal, Suicidal, threat to staff... and all critical care pts) @ -yes with significant lab abnormalities and renal failure - Consultations Consultation #1: Spoke with the aircraft engine dismantler who follows up outpatient labs, normal testing here in the ER and can be discharged home Medical Decision Making - Medical Decision Making 48 male sent for abnormal kidney function labs. Lab values are relatively unchanged from patient's baseline unsure of what outpatient lab studies showed is a do not have access to those. I did speak with nephrology who is okay with patient on discharge - Lab Data Result diagrams: 06/17/23 18:53 06/17/23 18:53 Lab Results 06/17/23 06/17/23 06/17/23 Range/Units 18:53 18:53 18:53 WBC 9.8 (3.8-10.6) k/uL RBC 3.27 L (4.30-5.90) m/uL Hgb 9.6 L (13.0-17.5) gm/dL Hct 29.0 L (39.0-53.0) % MCV 88.7 (80.0-100.0) fL MCH 29.4 (25.0-35.0) pg MCHC 33.1 (31.0-37.0) g/dL RDW 13.9 (11.5-15.5) % Plt Count 246 (150-450) k/uL MPV 7.6 Neutrophils % 66 % Lymphocytes % 23 % Monocytes % 6 % Eosinophils % 3 % Basophils % 0 % Neutrophils # 6.5 (1.3-7.7) k/uL Lymphocytes # 2.3 (1.0-4.8) k/uL Monocytes # 0.6 (0-1.0) k/uL Eosinophils # 0.3 (0-0.7) k/uL Basophils # 0.0 (0-0.2) k/uL PT 9.6 (9.0-12.0) sec INR 0.9 (<1.2) APTT 23.2 (22.0-30.0) sec Sodium 141 (137-145) mmol/L Potassium 4.8 (3.5-5.1) mmol/L Chloride 112 H (98-107) mmol/L Carbon Dioxide 17 L (22-30) mmol/L Anion Gap 12 mmol/L BUN 53 H (9-20) mg/dL Creatinine 3.92 H (0.66-1.25) mg/dL Est GFR (CKD-EPI)AfAm 19 (>60 ml/min/1.73 sqM) Est GFR (CKD-EPI)NonAf 17 (>60 ml/min/1.73 sqM) Glucose 173 H (74-99) mg/dL Plasma Lactic Acid Contreras (0.7-2.0) mmol/L Calcium 8.7 (8.4-10.2) mg/dL Phosphorus 4.1 (2.5-4.5) mg/dL Magnesium 1.9 (1.6-2.3) mg/dL Total Bilirubin 0.3 (0.2-1.3) mg/dL AST 21 (17-59) U/L ALT 19 (4-49) U/L Alkaline Phosphatase 121 (38-126) U/L Troponin I (0.000-0.034) ng/mL Total Protein 6.7 (6.3-8.2) g/dL Albumin 3.6 (3.5-5.0) g/dL Urine Color Urine Appearance (Clear) Urine pH (5.0-8.0) Ur Specific [place] (1.001-1.035) Urine Protein (Negative) Urine Glucose (UA) (Negative) Urine Ketones (Negative) Urine Blood (Negative) Urine Nitrite (Negative) Urine Bilirubin (Negative) Urine Urobilinogen (<2.0) mg/dL Ur Leukocyte Esterase (Negative) Urine RBC (0-5) /hpf Urine WBC (0-5) /hpf Amorphous Sediment (None) /hpf Urine Bacteria (None) /hpf Urine Mucus (None) /hpf 06/17/23 06/17/23 06/17/23 Range/Units 18:53 18:53 18:53 WBC (3.8-10.6) k/uL RBC (4.30-5.90) m/uL Hgb (13.0-17.5) gm/dL Hct (39.0-53.0) % MCV (80.0-100.0) fL MCH (25.0-35.0) pg MCHC (31.0-37.0) g/dL RDW (11.5-15.5) % Plt Count (150-450) k/uL MPV Neutrophils % % Lymphocytes % % Monocytes % % Eosinophils % % Basophils % % Neutrophils # (1.3-7.7) k/uL Lymphocytes # (1.0-4.8) k/uL Monocytes # (0-1.0) k/uL Eosinophils # (0-0.7) k/uL Basophils # (0-0.2) k/uL PT (9.0-12.0) sec INR (<1.2) APTT (22.0-30.0) sec Sodium (137-145) mmol/L Potassium (3.5-5.1) mmol/L Chloride (98-107) mmol/L Carbon Dioxide (22-30) mmol/L Anion Gap mmol/L BUN (9-20) mg/dL Creatinine (0.66-1.25) mg/dL Est GFR (CKD-EPI)AfAm (>60 ml/min/1.73 sqM) Est GFR (CKD-EPI)NonAf (>60 ml/min/1.73 sqM) Glucose (74-99) mg/dL Plasma Lactic Acid Contreras 0.8 (0.7-2.0) mmol/L Calcium (8.4-10.2) mg/dL Phosphorus (2.5-4.5) mg/dL Magnesium (1.6-2.3) mg/dL Total Bilirubin (0.2-1.3) mg/dL AST (17-59) U/L ALT (4-49) U/L Alkaline Phosphatase (38-126) U/L Troponin I 0.059 H* (0.000-0.034) ng/mL Total Protein (6.3-8.2) g/dL Albumin (3.5-5.0) g/dL Urine Color Yellow Urine Appearance Cloudy (Clear) Urine pH 6.0 (5.0-8.0) Ur Specific [place] 1.018 (1.001-1.035) Urine Protein 4+ H (Negative) Urine Glucose (UA) 3+ H (Negative) Urine Ketones Negative (Negative) Urine Blood Trace H (Negative) Urine Nitrite Negative (Negative) Urine Bilirubin Negative (Negative) Urine Urobilinogen <2.0 (<2.0) mg/dL Ur Leukocyte Esterase Negative (Negative) Urine RBC 6 H (0-5) /hpf Urine WBC 1 (0-5) /hpf Amorphous Sediment Rare H (None) /hpf Urine Bacteria Rare H (None) /hpf Urine Mucus Rare H (None) /hpf Disposition Clinical Impression: Normal exam Disposition: HOME SELF-CARE Condition: Good Instructions (If sedation given, give patient instructions): Normal Exam (ED) Is patient prescribed a controlled substance at d/c from ED?: No Referrals: Gautam Mata MD [Primary Care Provider] - 1-2 days Time of Disposition: 21:55
[2023-06-17 19:07] LABS: Basophils % (A) 0 %; Eosinophils # (A) 0.3 k/uL (0-0.7); Eosinophils % (A) 3 %; HGB 9.6 gm/dL (13.0-17.5); Lymphocytes # (A) 2.3 k/uL (1.0-4.8); Lymphocytes % (A) 23 %; MCH 29.4 pg (25.0-35.0); MCHC 33.1 g/dL (31.0-37.0); MCV 88.7 fL (80.0-100.0); Mean Platelet Volume 7.6; Monocytes # (A) 0.6 k/uL (0-1.0); Monocytes % (A) 6 %; Neutrophils # (A) 6.5 k/uL (1.3-7.7); Neutrophils % (A) 66 %; Platelet Count 246 k/uL (150-450); RBC 3.27 m/uL (4.30-5.90); RDW 13.9 % (11.5-15.5); WBC 9.8 k/uL (3.8-10.6)
[2023-06-17 19:13] LABS: ALT 19 U/L (4-49); AST 21 U/L (17-59); African American GFR (CKD) 19 (>60 ml/min/1.73 sqM); Albumin 3.6 g/dL (3.5-5.0); Alkaline Phosphatase 121 U/L (38-126); Anion Gap 12 mmol/L; Blood Urea Nitrogen 53 mg/dL (9-20); Calcium 8.7 mg/dL (8.4-10.2); Carbon Dioxide 17 mmol/L (22-30); Chloride 112 mmol/L (98-107); Glucose 173 mg/dL (74-99); Magnesium 1.9 mg/dL (1.6-2.3); Non-African American GFR(CKD) 17 (>60 ml/min/1.73 sqM); Phosphorus 4.1 mg/dL (2.5-4.5); Potassium 4.8 mmol/L (3.5-5.1); Sodium 141 mmol/L (137-145); Total Bilirubin 0.3 mg/dL (0.2-1.3); Total Protein 6.7 g/dL (6.3-8.2)
[2023-06-17 19:14] LABS: INR 0.9 (<1.2); Partial Thromboplastin Time 23.2 sec (22.0-30.0); Prothrombin Time 9.6 sec (9.0-12.0)
[2023-06-17 21:10] VITALS: RESP 18
[2023-06-17 21:30] LABS: Amorphous Sediment,Urine Rare /hpf; Appearance,Urine Cloudy (Clear); Bacteria,Urine Rare /hpf; Bilirubin,Urine Negative (Negative); Blood,Urine Trace (Negative); Color,Urine Yellow; Glucose,Urine (UA) 3+ (Negative); Ketones,Urine Negative (Negative); Leukocyte Esterase,Urine Negative (Negative); Mucus,Urine Rare /hpf; Nitrite,Urine Negative (Negative); Protein,Urine 4+ (Negative); RBC,Urine 6 /hpf (0-5); Specific Gravity,Urine 1.018 (1.001-1.035); Urobilinogen,Urine <2.0 mg/dL (<2.0); WBC,Urine 1 /hpf (0-5)
[2023-06-17 22:05] VITALS: BP 140/78
== END 2023-06-17 22:08 | disposition home or self-care (01) ==
LOC: EC 17:59
DX: Z00.00 Encounter for general adult medical examination without abnormal findings (principal); E11.9 Type 2 diabetes mellitus without complications; I10 Essential (primary) hypertension; I25.10 Atherosclerotic heart disease of native coronary artery without angina pectoris; I25.2 Old myocardial infarction; Z79.84 Long term (current) use of oral hypoglycemic drugs; Z79.899 Other long term (current) drug therapy; F17.200 Nicotine dependence, unspecified, uncomplicated
CPT/HCPCS: 36415; 80053; 81001; 83605; 83735; 84100; 84484; 85025; 85610; 85730; 99284

== ENCOUNTER → 2023-08-08 | Outpatient (CLI) | payer OTHER ==
[2023-08-08 13:24] LABS: Basophils % (A) 0 %; Eosinophils # (A) 0.3 k/uL (0-0.7); Eosinophils % (A) 3 %; HCT 29.6 % (39.0-53.0); HGB 9.4 gm/dL (13.0-17.5); Hypochromasia Slight; Lymphocytes # (A) 2.3 k/uL (1.0-4.8); Lymphocytes % (A) 24 %; MCH 28.6 pg (25.0-35.0); MCHC 31.7 g/dL (31.0-37.0); MCV 90.3 fL (80.0-100.0); Mean Platelet Volume 7.9; Monocytes # (A) 0.6 k/uL (0-1.0); Monocytes % (A) 6 %; Neutrophils # (A) 6.2 k/uL (1.3-7.7); Neutrophils % (A) 66 %; Platelet Count 255 k/uL (150-450); RBC 3.28 m/uL (4.30-5.90); RDW 13.6 % (11.5-15.5); WBC 9.4 k/uL (3.8-10.6)
[2023-08-08 13:26] LABS: African American GFR (CKD) 21 (>60 ml/min/1.73 sqM); Anion Gap 12 mmol/L; Blood Urea Nitrogen 35 mg/dL (9-20); Carbon Dioxide 20 mmol/L (22-30); Chloride 110 mmol/L (98-107); INR 0.9 (<1.2); Non-African American GFR(CKD) 18 (>60 ml/min/1.73 sqM); Partial Thromboplastin Time 24.7 sec (22.0-30.0); Potassium 4.6 mmol/L (3.5-5.1); Prothrombin Time 9.9 sec (9.0-12.0); Sodium 142 mmol/L (137-145)
== END | disposition home or self-care (01) ==
LOC: LABWHC1 12:06
PROVIDERS: ATTEND Internal Medicine Nephrology
DX: N18.31 Chronic kidney disease, stage 3a (principal)
CPT/HCPCS: 36415; 80051; 82565; 84520; 85025; 85610; 85730; 86850; 86900; 86901

== ENCOUNTER 2023-08-10 07:55 | Day surgery (SDC) | payer OTHER ==
[2023-08-10] MEDS ORDERED: ALPRAZolam 0.5 MG TAB PO PRN (08:10)
[2023-08-10] MEDS ORDERED: DESMOPRESSIN ACETATE 32 MCG in SODIUM CHLORIDE 0.9% 50 ML IVPB ONE (08:30)
[2023-08-10 08:56] LABS: Glucose,Whole Blood 122 mg/dL (70-110)
[2023-08-10 09:11] VITALS: TEMP 97.9
[2023-08-10 10:21] VITALS: RESP 16
[2023-08-10] MEDS: HYDROmorphone 0.5 MG/0.5 ML SYRINGE IVP PRN ×2 (10:23→10:31)
--- NOTE | 2023-08-10 12:54 | CT ---
EXAMINATION TYPE: CT biopsy renal RT DATE OF EXAM: 08/10/2023 COMPARISON: NONE HISTORY: Chronic kidney disease, DLP [id number], Scanned by SO/NEYDA. Dr. Barry CT DLP: [id number] mGycm The procedure was explained to the patient. The risks, complications, benefits, and alternatives wer e discussed and any questions were answered. Informed consent was obtained. Patient was placed pron e on the CT table and prepped and draped in the usual sterile fashion. Utilizing CT guidance, an 18 gauge core biopsy needle access into the left renal cortex was achieved and three 18 gauge core samples were obtained. The patient was stable throughout the procedure and r emained stable upon discharge. IMPRESSION: Successful 18 gauge core biopsy of the kidney function.
[2023-08-10 16:16] VITALS: BP 165/80; PULSE 75
== END 2023-08-10 15:00 | disposition home or self-care (01) ==
LOC: RADPROMAIN 07:55
PROVIDERS: ATTEND Internal Medicine
DX: N17.9 Acute kidney failure, unspecified (principal); N18.31 Chronic kidney disease, stage 3a
CPT/HCPCS: 36415; 50200; 77012; J2597; J1170

== ENCOUNTER 2024-02-09 15:35 | Observation (INO) | payer OTHER ==
--- NOTE | 2024-02-09 15:42 | ED ---
Recheck HPI - General Chief Complaint: Recheck/Abnormal Lab/Rx Stated Complaint: Abn Labs Time Seen by Provider: 02/09/24 15:41 Source: patient, RN notes reviewed Mode of arrival: ambulatory Limitations: no limitations - History of Present Illness Initial Comments: 49-year-old male with history of type 2 diabetes and end-stage renal disease presents today for hyperkalemia informed by his wireline supervisor to report to the emergency department and is unaware of the level. No chest pain or pressure, palpitations, dizziness, muscle aches or pains abdominal pain, nausea or vomiting. He endorses bilateral lower extremity edema, but states that his orthopnea and edema have significantly decreased since increasing dosage of Lasix. Patient states that he is chronically experiencing dyspnea, but denies worsening. Patient states that he checks his blood sugars 1-4 times a day with ranges in the 140s over the last couple of weeks. Patient denies any increase in hunger or thirst, increase in urinary frequency. - Related Data Home Medications Medication Instructions Recorded Confirmed Glimepiride [Amaryl] 2 mg PO DAILY 11/18/21 02/09/24 Aspirin 81 mg PO HS 02/09/24 02/09/24 Furosemide [Lasix] 40 mg PO DAILY 02/09/24 02/09/24 Rosuvastatin [Crestor] 10 mg PO HS 02/09/24 02/09/24 carvediloL [Coreg] 25 mg PO BID 02/09/24 02/09/24 hydrALAZINE HCL [Apresoline] 50 mg PO TID 02/09/24 02/09/24 lisinopriL [Zestril] 2.5 mg PO DAILY 02/09/24 02/09/24 sitaGLIPtin [Januvia] 25 mg PO DAILY 02/09/24 02/09/24 Previous Rx's Medication Instructions Recorded Clopidogrel [Plavix] 75 mg PO DAILY #30 tab 05/23/23 Isosorbide Mononitrate ER [Imdur] 30 mg PO DAILY #30 tab 05/23/23 Allergies Allergy/AdvReac Type Severity Reaction Status Date / Time No Known Allergies Allergy Verified 02/09/24 17:37 Review of Systems ROS Statement: Those systems with pertinent positive or pertinent negative responses have been documented in the HPI. ROS Other: All systems not noted in ROS Statement are negative. Past Medical History Past Medical History: Coronary Artery Disease (CAD), Diabetes Mellitus, Hyperlipidemia, Hypertension, Myocardial Infarction ([place]) Additional Past Medical History / Comment(s): detached retina bilateral Last Myocardial Infarction Date:: 05/17/2023 History of Any Multi-Drug Resistant Organisms: None Reported Past Surgical History: Tonsillectomy Additional Past Surgical History / Comment(s): cyst removed from back, eye surgery Past Anesthesia/Blood Transfusion Reactions: No Reported Reaction Past Psychological History: No Psychological Hx Reported Smoking Status: Current every day smoker Past Alcohol Use History: None Reported Past Drug Use History: None Reported - Past Family History Father Family Medical History: Cancer, CVA/TIA Additional Family Medical History / Comment(s): bladder CA Mother Family Medical History: Diabetes Mellitus, Hypertension General Exam Limitations: no limitations General appearance: alert, in no apparent distress Head exam: Present: atraumatic, normocephalic, normal inspection Eye exam: Present: normal appearance, PERRL, EOMI. Absent: scleral icterus, conjunctival injection, periorbital swelling ENT exam: Present: normal exam, mucous membranes moist Neck exam: Present: normal inspection. Absent: tenderness, meningismus, lymphadenopathy Respiratory exam: Present: normal lung sounds bilaterally, decreased breath sounds. Absent: respiratory distress, wheezes, rales, rhonchi, stridor Cardiovascular Exam: Present: regular rate, normal rhythm, normal heart sounds. Absent: systolic murmur, diastolic murmur, rubs, gallop, clicks GI/Abdominal exam: Present: soft, normal bowel sounds. Absent: distended, tenderness, guarding, rebound, rigid Extremities exam: Present: other (1+ bilateral LE pitting edema) Back exam: Present: normal inspection Neurological exam: Present: alert, oriented X3, CN II-XII intact Psychiatric exam: Present: normal affect, normal mood Skin exam: Present: warm, dry, intact, normal color. Absent: rash Course Vital Signs 02/09/24 02/09/24 02/09/24 15:37 17:00 18:00 Temperature 98.1 F Pulse Rate 71 68 67 Pulse Rate [ Pulse Oximetery ] Respiratory 18 20 18 Rate Blood Pressure 131/70 137/78 157/80 Blood Pressure [Right Arm] O2 Sat by Pulse 99 99 98 Oximetry 04/04/24 04/04/24 04/04/24 19:00 20:00 21:25 Temperature 97.8 F Pulse Rate 69 69 Pulse Rate [ 79 Pulse Oximetery ] Respiratory 18 14 16 Rate Blood Pressure 154/77 140/75 Blood Pressure 147/78 [Right Arm] O2 Sat by Pulse 97 98 98 Oximetry Medical Decision Making - Medical Decision Making Was pt. sent in by a medical professional or institution (, NED, DISTRIBUTOR OF DIRECTORIES, urgent care, hospital, or retirement...) When possible be specific @ -Patient was instructed to come to the emergency department by his wireline supervisor due to elevated potassium Did you speak to anyone other than the patient for history (EMS, parent, family, police, friend...)? What history was obtained from this source @ -Mother was in the room who provided some of the patient's history Did you review nursing and triage notes (agree or disagree)? Why? @ -[I reviewed and agree with nursing and triage notes] Were old charts reviewed (outside hosp., previous admission, EMS record, old EK G, old radiological studies, urgent care reports/EKG's, retirement records)? Report findings @ -[No old charts were reviewed] Differential Diagnosis (chest pain, altered mental status, abdominal pain women, abdominal pain men, vaginal bleeding, weakness, fever, dyspnea, syncope, headache, dizziness, GI bleed, back pain, seizure, CVA, palpatations, mental health, musculoskeletal)? @ -Differential Weakness: Hypoglycemia, shock, sepsis, hyponatremia, anemia, infection, [place], ETOH, adverse medicine reaction, overdose, stroke, this is not meant to be an all-inclusive list. EKG interpreted by me (3pts min.). @ -1625 patient's rhythm, ventricular rate 65, [place] interval 186, QTc 423. No acute signs of ischemia. X-rays interpreted by me (1pt min.). @ -[None done] CT interpreted by me (1pt min. ischemia.). @ -[None done] U/S interpreted by me (1pt. min.). @ -[None done] What testing was considered but not performed or refused? (CT, X-rays, U/S, labs)? Why? @ -[None] What meds were considered but not given or refused? Why? @ -[None] Did you discuss the management of the patient with other professionals (professionals i.e. Dr., PA, DISTRIBUTOR OF DIRECTORIES, lab, RT, psych nurse, director of social work, otr van cdl truck driver, teacher, assignment officer, nurse outreach case manager)? Give summary @ -Spoke with general medicine team [facility] hospitalist who are agreeable with admission for electrolyte abnormalities and elevation of pancreatic enzym es. Discussed care with neurologist on-call who is agreeable to consultation, recommends starting patient on a D5 and bicarb drip at 50 and given the patient lokelema for the elevated potassium. Was smoking cessation discussed for >3mins.? @ -[No] Was critical care preformed (if so, how long)? @ -[No] Were there social determinants of health that impacted care today? How? (Homelessness, low income, unemployed, alcoholism, drug addiction, transportation, low edu. Level, literacy, decrease access to med. care, [place] [facility], rehab)? @ -[No] Was there de-escalation of care discussed even if they declined (Discuss DNR or withdrawal of care, Hospice)? DNR status @ -[No] What co-morbidities impacted this encounter? (DM, HTN, Smoking, COPD, CAD, Cancer, CVA, ARF, Chemo, Hep., AIDS, mental health diagnosis, sleep apnea, morbid obesity)? @ -Diabetes mellitus, chronic kidney disease, hypertension Was patient admitted / discharged? Hospital course, mention meds given and route, prescriptions, significant lab abnormalities, going to OR and other pertinent info. @ -Admitted. 49-year-old male with chief complaint of abnormal labs. Undiagnosed new problem with uncertain prognosis? @ -[No] Drug Therapy requiring intensive monitoring for toxicity (Heparin, Nitro, Insulin, Cardizem)? @ -[No] Were any procedures done? @ -[No] Diagnosis/symptom? @ -[default] Acute, or Chronic, or Acute on Chronic? @ -[default] Uncomplicated (without systemic symptoms) or Complicated (systemic symptoms)? @ -[default] Side effects of treatment? @ -[No] Exacerbation, Progression, or Severe Exacerbation? @ -[No] Poses a threat to life or bodily function? How? (Chest pain, [place], [place], pneumonia, PE, COPD, DKA, ARF, appy, cholecystitis, CVA, Diverticulitis, Homicidal, Suicidal, threat to staff... and all critical care pts) @ -[No] - Lab Data Result diagrams: 02/09/24 16:12 02/09/24 16:12 Lab Results 02/09/24 02/09/24 02/09/24 Range/Units 16:12 16:12 16:18 WBC 10.9 H (3.8-10.6) k/uL RBC 3.17 L (4.30-5.90) m/uL Hgb 9.0 L (13.0-17.5) gm/dL Hct 28.2 L (39.0-53.0) % MCV 89.1 (80.0-100.0) fL MCH 28.4 (25.0-35.0) pg MCHC 31.8 (31.0-37.0) g/dL RDW 13.0 (11.5-15.5) % Plt Count 259 (150-450) k/uL MPV 7.8 Neutrophils % 72 % Lymphocytes % 17 % Monocytes % 7 % Eosinophils % 3 % Basophils % 0 % Neutrophils # 7.8 H (1.3-7.7) k/uL Lymphocytes # 1.8 (1.0-4.8) k/uL Monocytes # 0.7 (0-1.0) k/uL Eosinophils # 0.3 (0-0.7) k/uL Basophils # 0.0 (0-0.2) k/uL Sodium 136 L (137-145) mmol/L Potassium 6.0 H (3.5-5.1) mmol/L Chloride 110 H (98-107) mmol/L Carbon Dioxide 13 L (22-30) mmol/L Anion Gap 13 mmol/L BUN 78 H (9-20) mg/dL Creatinine 5.56 H (0.66-1.25) mg/dL Est GFR (CKD-EPI)AfAm 13 (>60 ml/min/1.73 sqM) Est GFR (CKD-EPI)NonAf 11 (>60 ml/min/1.73 sqM) Glucose 151 H (74-99) mg/dL POC Glucose (mg/dL) 170 H (70-110) mg/dL POC Glu Head Setter ID Kalie Rogel Calcium 8.7 (8.4-10.2) mg/dL Magnesium 2.5 H (1.6-2.3) mg/dL Total Bilirubin 0.4 (0.2-1.3) mg/dL AST 21 (17-59) U/L ALT 18 (4-49) U/L Alkaline Phosphatase 79 (38-126) U/L NT-Pro-B Natriuret Pep 5800 pg/mL Total Protein 6.8 (6.3-8.2) g/dL Albumin 3.9 (3.5-5.0) g/dL Amylase 192 H (30-110) U/L Lipase 1532 H (23-300) U/L Disposition Clinical Impression: Hyperkalemia, Pancreatitis Disposition: ADMITTED IP TO THIS [facility] Condition: Good Decision to Admit Reason: Admit from EC Decision Date: 02/09/24
[2024-02-09 16:19] LABS: Glucose,Whole Blood 170 mg/dL (70-110)
[2024-02-09 16:21] LABS: Basophils % (A) 0 %; Eosinophils # (A) 0.3 k/uL (0-0.7); Eosinophils % (A) 3 %; HCT 28.2 % (39.0-53.0); Lymphocytes # (A) 1.8 k/uL (1.0-4.8); Lymphocytes % (A) 17 %; MCH 28.4 pg (25.0-35.0); MCHC 31.8 g/dL (31.0-37.0); MCV 89.1 fL (80.0-100.0); Mean Platelet Volume 7.8; Monocytes # (A) 0.7 k/uL (0-1.0); Monocytes % (A) 7 %; Neutrophils # (A) 7.8 k/uL (1.3-7.7); Neutrophils % (A) 72 %; Platelet Count 259 k/uL (150-450); RBC 3.17 m/uL (4.30-5.90); WBC 10.9 k/uL (3.8-10.6)
[2024-02-09 16:38] LABS: ALT 18 U/L (4-49); AST 21 U/L (17-59); African American GFR (CKD) 13 (>60 ml/min/1.73 sqM); Albumin 3.9 g/dL (3.5-5.0); Alkaline Phosphatase 79 U/L (38-126); Amylase 192 U/L (30-110); Anion Gap 13 mmol/L; Blood Urea Nitrogen 78 mg/dL (9-20); Calcium 8.7 mg/dL (8.4-10.2); Carbon Dioxide 13 mmol/L (22-30); Chloride 110 mmol/L (98-107); Glucose 151 mg/dL (74-99); Lipase 1532 U/L (23-300); Magnesium 2.5 mg/dL (1.6-2.3); Non-African American GFR(CKD) 11 (>60 ml/min/1.73 sqM); Sodium 136 mmol/L (137-145); Total Bilirubin 0.4 mg/dL (0.2-1.3); Total Protein 6.8 g/dL (6.3-8.2)
[2024-02-09 16:46] LABS: NT-Pro-B-Type Natriuretic Pept 5800 pg/mL
--- NOTE | 2024-02-09 16:52 | XR ---
EXAMINATION: XR chest 2V: 02/09/2024 4:44 PM CLINICAL INDICATION: peripheral edema TECHNIQUE: Departmental protocol COMPARISON: 05/16/2023 FINDINGS: The lungs are clear. The pleural spaces are negative. The cardiac silhouette is mildly enlarged, stable. The skeletal structures and soft tissues are negative for acute findings. IMPRESSION: No acute radiographic process.
[2024-02-09] MEDS ORDERED: ACETAMINOPHEN TAB 325 MG TAB PO PRN (17:26)
[2024-02-09] MEDS ORDERED: NALOXONE 0.4 MG/ML 1 ML VIAL IV PRN (17:26)
[2024-02-09] MEDS: DEXTROSE 5% IN WATER 1,000 ML with SODIUM BICARB (1 MEQ/ML) 50 ML IV SCH (20:11)
[2024-02-09] MEDS: SODIUM ZIRCONIUM CYCLOSILICATE 10 GM PACKET PO ONE (20:13)
[2024-02-09] MEDS: carvediloL 12.5 MG TAB PO SCH (23:10)
[2024-02-10 07:14] LABS: Glucose,Whole Blood 69 mg/dL (70-110)
[2024-02-10] MEDS: INSULIN ASPART (NovoLOG) 100 UNIT/ML VIAL SQ SCH (07:34)
[2024-02-10 08:05] LABS: Glucose,Whole Blood 98 mg/dL (70-110)
[2024-02-10] MEDS: FUROSEMIDE 40 MG TAB PO SCH (08:30)
[2024-02-10] MEDS: hydrALAZINE HCL 50 MG TAB PO SCH (08:30)
[2024-02-10] MEDS: ISOSORBIDE MONONITRATE ER 30 MG TAB.ER.24H PO SCH (08:30)
[2024-02-10] MEDS: CLOPIDOGREL 75 MG TAB PO SCH (08:30)
[2024-02-10 08:48] LABS: Basophils # (A) 0.03 X 10*3/uL (0.00-0.10); Basophils % (A) 0.3 %; Eosinophils # (A) 0.25 X 10*3/uL (0.04-0.35); Eosinophils % (A) 2.6 %; HCT 26.5 % (39.6-50.0); HGB 8.1 g/dL (13.0-17.0); Lymphocytes # (A) 1.66 X 10*3/uL (0.90-5.00); Lymphocytes % (A) 17.3 %; MCH 27.8 pg (27.0-32.0); MCHC 30.6 g/dL (32.0-37.0); MCV 91.1 FL (80.0-97.0); Mean Platelet Volume 10.4 FL (9.5-12.2); Monocytes # (A) 0.98 X 10*3/uL (0.20-1.00); Monocytes % (A) 10.2 %; NRBC Per 100 WBC 0 X 10*3/uL (0.00-0.01); Neutrophils # (A) 6.61 X 10*3/uL (1.80-7.70); Neutrophils % (A) 69.2 %; Platelet Count 231 X 10*3/uL (140-440); RBC 2.91 X 10*6/uL (4.40-5.60); RDW 12.7 % (11.5-14.5); WBC 9.57 X 10*3/uL (4.50-10.00)
[2024-02-10 09:02] LABS: ALT 18 U/L (10-49); AST 16 U/L (14-35); Albumin 3.8 g/dL (3.8-4.9); Albumin/Globulin Ratio 1.65 Ratio (1.60-3.17); Alkaline Phosphatase 67 U/L (41-126); BUN/Creat Ratio 14.49 Ratio (12.00-20.00); Blood Urea Nitrogen 73.9 mg/dL (9.0-27.0); Calcium 8.8 mg/dL (8.7-10.3); Carbon Dioxide 20.3 mmol/L (21.6-31.8); Chloride 106 mmol/L (96-109); Globulin 2.3 g/dL (1.6-3.3); Glucose 69 mg/dL (70-110); Potassium 5.1 mmol/L (3.5-5.5); Sodium 139 mmol/L (135-145); Total Bilirubin <0.2 mg/dL (0.3-1.2); Total Protein 6.1 g/dL (6.2-8.2)
--- NOTE | 2024-02-10 11:20 | P.NPCON ---
History of Present Illness - Reason for Consult chronic renal failure - History of Present Illness patient is a 49-year-old male with CK D stage V with baseline creatinine around 4-5 mg/dL. Patient was admitted to the hospital as he was noted to have significantly elevated potassium at 6.8 as outpatient. Renal function is close to baseline and patient stated that he had been drinking a gallon of Crystal light daily. He was also noted to be acidotic with CO2 of 13. Currently improved status post bicarb drip. No nausea or vomiting. Patient remains with good appetite. He scheduled for vein mapping with vascular surgery. Lipase was noted to be elevated at 1532 but patient denies any symptoms of ab dominal pain nausea or vomiting. Review of Systems as per HPI Past Medical History Past Medical History: Coronary Artery Disease (CAD), Diabetes Mellitus, Hyperlipidemia, Hypertension, Myocardial Infarction ([place]) Additional Past Medical History / Comment(s): detached retina bilateral Last Myocardial Infarction Date:: 05/17/2023 History of Any Multi-Drug Resistant Organisms: None Reported Past Surgical History: Tonsillectomy Additional Past Surgical History / Comment(s): cyst removed from back, eye surge ry Past Anesthesia/Blood Transfusion Reactions: No Reported Reaction Past Psychological History: No Psychological Hx Reported Smoking Status: Current every day smoker Past Alcohol Use History: None Reported Past Drug Use History: None Reported - Past Family History Father Family Medical History: Cancer, CVA/TIA Additional Family Medical History / Comment(s): bladder CA Mother Family Medical History: Diabetes Mellitus, Hypertension Medications and Allergies Home Medications Medication Instructions Recorded Confirmed Type Glimepiride [Amaryl] 2 mg PO DAILY 11/18/21 02/09/24 History Clopidogrel [Plavix] 75 mg PO DAILY #30 tab 05/23/23 02/09/24 Rx Isosorbide Mononitrate ER [Imdur] 30 mg PO DAILY #30 tab 05/23/23 02/09/24 Rx Aspirin 81 mg PO HS 02/09/24 02/09/24 History Furosemide [Lasix] 40 mg PO DAILY 02/09/24 02/09/24 History Rosuvastatin [Crestor] 10 mg PO HS 02/09/24 02/09/24 History carvediloL [Coreg] 25 mg PO BID 02/09/24 02/09/24 History hydrALAZINE HCL [Apresoline] 50 mg PO TID 02/09/24 02/09/24 History lisinopriL [Zestril] 2.5 mg PO DAILY 02/09/24 02/09/24 History sitaGLIPtin [Januvia] 25 mg PO DAILY 02/09/24 02/09/24 History Allergies Allergy/AdvReac Type Severity Reaction Status Date / Time No Known Allergies Allergy Verified 02/09/24 17:37 Physical Exam Vitals: Vital Signs Temp Pulse Pulse Resp BP BP BP 02/10/24 07:16 98.5 F 75 16 138/80 02/10/24 02:00 98.2 F 90 16 134/73 02/09/24 22:00 16 02/09/24 21:25 97.8 F 79 16 147/78 02/09/24 20:00 69 14 140/75 02/09/24 19:00 69 18 154/77 02/09/24 18:00 67 18 157/80 02/09/24 17:00 68 20 137/78 02/09/24 15:37 98.1 F 71 18 131/70 Pulse Ox 02/10/24 07:16 98 02/10/24 02:00 96 02/09/24 22:00 02/09/24 21:25 98 02/09/24 20:00 98 02/09/24 19:00 97 02/09/24 18:00 98 02/09/24 17:00 99 02/09/24 15:37 99 Intake and Output 02/09/24 02/10/24 02/10/24 22:59 06:59 14:59 Other: Voiding Method Toilet Toilet # Voids 3 # Bowel Movements 0 Weight 117.934 kg patient is awake, comfortable, alert oriented 3 Examination of the heart S1 and S2 Examination the lungs bilateral breath sounds are heard Abdomen is soft nontender Examination lower extremity shows no evidence of edema [employer] exam grossly Results - Lab Results Most recent lab results Calcium 8.8 mg/dL (8.7-10.3) 02/10/24 06:10 Magnesium 2.5 mg/dL (1.6-2.3) H 02/09/24 16:12 02/10/24 06:10 02/10/24 06:10 Assessment and Plan Assessment: 1. Chronic kidney disease NKF stage V with baseline creatinine 4.8-5 mg/dL. Renal function at baseline. Patient is asymptomatic. He is scheduled for vein mapping and AV fistula placement as outpatient I believe next week. 2. Hyperkalemia associated with increased potassium intake the setting of advanced CK D. Patient was drinking a gallon off crystallite daily. also exacerbated by metabolic acidosis. 3. Elevated lipase with no abdominal symptoms 4. Metabolic acidosis associated with advanced CK D Plan: repeat lipase Patient is stable from nephrology standpoint for discharge. He will need oral sodium bicarb 650 mg twice a day and follow-up in the office in about 1 week's time. Low potassium diet discussed and also advised to avoid crystallite with electrolytes.
[2024-02-10 12:06] LABS: Glucose,Whole Blood 153 mg/dL (70-110)
[2024-02-10] MEDS: SODIUM BICARBONATE TAB 650 MG TAB PO SCH (12:24)
[2024-02-10 12:54] VITALS: BP 124/73; PULSE 78; RESP 17; TEMP 97.9
--- NOTE | 2024-02-10 13:49 | P.HPIM ---
History of Present Illness H&P Date: 02/10/24 This is a pleasant 49 year old male with medical history of end-stage renal disease and type 2 diabetes mellitus. Patient follows with Dr. Ernst in the office is found to have elevated potassium of 6 and was sent in for further evaluation. Patient has had lower extremity edema outpatient however his Lasix has been increased recently and is evaluated today with no lower extremity edema noted. Patient does state that he has been drinking christopher light throughout the day which is high in citric acid. He was admitted to the hospital and treated with lokelma with improvement in the potassium down to 5.1. There was also findings of an elevated amylase and lipase however patient is not reporting any abdominal pain he is not having any nausea vomiting or diarrhea. He has been tolerating diet. States that he did have 1 prior episode of pancreatitis requiring hospitalization but he is unsure of what caused it and states that it did resolve. He is currently denying chest pain, denying shortness of breath. He was hydrated. Nephrology will evaluate the patient and he can likely be discharged home later today. REVIEW OF SYSTEMS: CONSTITUTIONAL: No fever, no malaise, no fatigue. HEENT: No recent visual problems or hearing problems. Denied any sore throat. CARDIOVASCULAR: No chest pain, orthopnea, PND, no palpitations, no syncope. PULMONARY: No shortness of breath, no cough, no hemoptysis. GASTROINTESTINAL: No diarrhea, no nausea, no vomiting, no abdominal pain. NEUROLOGICAL: No headaches, no weakness, no numbness. HEMATOLOGICAL: Denies any bleeding or petechiae. GENITOURINARY: Denies any burning micturition, frequency, or urgency. MUSCULOSKELETAL/RHEUMATOLOGICAL: Denies any joint pain, swelling, or any muscle pain. ENDOCRINE: Denies any polyuria or polydipsia. The rest of the 14-point review of systems is negative. PHYSICAL EXAMINATION: GENERAL: The patient is alert and oriented x3, not in any acute distress. Well developed, well nourished. HEENT: Pupils are round and equally reacting to light. EOMI. No scleral icterus. No conjunctival pallor. Normocephalic, atraumatic. No pharyngeal erythema. No thyromegaly. CARDIOVASCULAR: S1 and S2 present. No murmurs, rubs, or gallops. PULMONARY: Chest is clear to auscultation, no wheezing or crackles. ABDOMEN: Soft, nontender, nondistended, normoactive bowel sounds. No palpable organomegaly. MUSCULOSKELETAL: No joint swelling or deformity. EXTREMITIES: No cyanosis, clubbing, or pedal edema. NEUROLOGICAL: Gross neurological examination did not reveal any focal deficits. SKIN: No rashes. Assessment and Plan -Hyperkalemia secondary to end-stage renal disease and noncompliance with a renal diet patient was treated with Lokelma and his potassium has improved down to 5.1. He is educated on low potassium diet and is agreeing to follow this on discharge. He was seen and evaluated by nephrology who was cleared the patient as well. -Type 2 diabetes mellitus controlled -Mild acute pancreatitis with elevated lipase, amylase with no clinical symptoms or abdominal pain, resolved with supportive care -Coronary artery disease with no cardiac stenting patient has totally occluded RCA and also obstructive disease in the circumflex -Hypertension -Hyperlipidemia -Chronic and ongoing nicotine use educated on smoking cessation -Hx of Alcoholism in the past. Full code The impression and plan of care has been dictated by Shireen Momin Nurse Practitioner as directed. Dr. Yesica MD I have performed a history and physical examination and medical decision making of this patient, discussed the same with the dictator, and agree with the dictators assessment and plan as written, documented as a scribe. Based on total visit time, I have performed more than 50% of this visit. Past Medical History Past Medical History: Coronary Artery Disease (CAD), Diabetes Mellitus, Hyperlipidemia, Hypertension, Myocardial Infarction ([place]) Additional Past Medical History / Comment(s): detached retina bilateral Last Myocardial Infarction Date:: 05/17/2023 History of Any Multi-Drug Resistant Organisms: None Reported Past Surgical History: Tonsillectomy Additional Past Surgical History / Comment(s): cyst removed from back, eye surgery Past Anesthesia/Blood Transfusion Reactions: No Reported Reaction Past Psychological History: No Psychological Hx Reported Smoking Status: Current every day smoker Past Alcohol Use History: None Reported Past Drug Use History: None Reported - Past Family History Father Family Medical History: Cancer, CVA/TIA Additional Family Medical History / Comment(s): bladder CA Mother Family Medical History: Diabetes Mellitus, Hypertension Medications and Allergies Home Medications Medication Instructions Recorded Confirmed Type Glimepiride [Amaryl] 2 mg PO DAILY 11/18/21 02/09/24 History Clopidogrel [Plavix] 75 mg PO DAILY #30 tab 05/23/23 02/09/24 Rx Isosorbide Mononitrate ER [Imdur] 30 mg PO DAILY #30 tab 05/23/23 02/09/24 Rx Aspirin 81 mg PO HS 02/09/24 02/09/24 History Furosemide [Lasix] 40 mg PO DAILY 02/09/24 02/09/24 History Rosuvastatin [Crestor] 10 mg PO HS 02/09/24 02/09/24 History carvediloL [Coreg] 25 mg PO BID 02/09/24 02/09/24 History hydrALAZINE HCL [Apresoline] 50 mg PO TID 02/09/24 02/09/24 History lisinopriL [Zestril] 2.5 mg PO DAILY 02/09/24 02/09/24 History sitaGLIPtin [Januvia] 25 mg PO DAILY 02/09/24 02/09/24 History Sodium Bicarbonate Tab 650 mg PO BID #60 tab 02/10/24 Rx Allergies Allergy/AdvReac Type Severity Reaction Status Date / Time No Known Allergies Allergy Verified 02/09/24 17:37 Physical Exam Vitals: Vital Signs Temp Pulse Pulse Resp BP BP BP 02/10/24 12:07 97.9 F 78 17 124/73 02/10/24 07:16 98.5 F 75 16 138/80 02/10/24 02:00 98.2 F 90 16 134/73 02/09/24 22:00 16 02/09/24 21:25 97.8 F 79 16 147/78 02/09/24 20:00 69 14 140/75 02/09/24 19:00 69 18 154/77 02/09/24 18:00 67 18 157/80 02/09/24 17:00 68 20 137/78 02/09/24 15:37 98.1 F 71 18 131/70 Pulse Ox 02/10/24 12:07 96 02/10/24 07:16 98 02/10/24 02:00 96 02/09/24 22:00 02/09/24 21:25 98 02/09/24 20:00 98 02/09/24 19:00 97 02/09/24 18:00 98 02/09/24 17:00 99 02/09/24 15:37 99 Intake and Output 02/09/24 02/10/24 02/10/24 22:59 06:59 14:59 Other: Voiding Method Toilet Toilet # Voids 3 # Bowel Movements 0 Weight 117.934 kg Results CBC & Chem 7: 02/10/24 06:10 02/10/24 06:10 Labs: Abnormal Lab Results - Last 24 Hours (Table) 02/09/24 02/09/24 02/09/24 Range/Units 16:12 16:12 16:18 WBC 10.9 H (3.8-10.6) k/uL RBC 3.17 L (4.30-5.90) m/uL Hgb 9.0 L (13.0-17.5) gm/dL Hct 28.2 L (39.0-53.0) % MCHC (32.0-37.0) g/dL Neutrophils # 7.8 H (1.3-7.7) k/uL Sodium 136 L (137-145) mmol/L Potassium 6.0 H (3.5-5.1) mmol/L Chloride 110 H (98-107) mmol/L Carbon Dioxide 13 L (22-30) mmol/L Anion Gap (4.00-12.00) mmol/L BUN 78 H (9-20) mg/dL Creatinine 5.56 H (0.66-1.25) mg/dL Est GFR (CKD-EPI) (>=60) Glucose 151 H (74-99) mg/dL POC Glucose (mg/dL) 170 H (70-110) mg/dL Magnesium 2.5 H (1.6-2.3) mg/dL Total Bilirubin (0.3-1.2) mg/dL Total Protein (6.2-8.2) g/dL Amylase 192 H (30-110) U/L Lipase 1532 H (23-300) U/L 02/10/24 02/10/24 02/10/24 Range/Units 06:10 06:10 07:12 WBC (3.8-10.6) k/uL RBC 2.91 L (4.30-5.90) m/uL Hgb 8.1 L (13.0-17.5) gm/dL Hct 26.5 L (39.0-53.0) % MCHC 30.6 L (32.0-37.0) g/dL Neutrophils # (1.3-7.7) k/uL Sodium (137-145) mmol/L Potassium (3.5-5.1) mmol/L Chloride (98-107) mmol/L Carbon Dioxide 20.3 L (22-30) mmol/L Anion Gap 12.70 H (4.00-12.00) mmol/L BUN 73.9 H (9-20) mg/dL Creatinine 5.1 H (0.66-1.25) mg/dL Est GFR (CKD-EPI) 13 L (>=60) Glucose 69 L (74-99) mg/dL POC Glucose (mg/dL) 69 L (70-110) mg/dL Magnesium (1.6-2.3) mg/dL Total Bilirubin <0.2 L (0.3-1.2) mg/dL Total Protein 6.1 L (6.2-8.2) g/dL Amylase (30-110) U/L Lipase (23-300) U/L 02/10/24 Range/Units 12:05 WBC (3.8-10.6) k/uL RBC (4.30-5.90) m/uL Hgb (13.0-17.5) gm/dL Hct (39.0-53.0) % MCHC (32.0-37.0) g/dL Neutrophils # (1.3-7.7) k/uL Sodium (137-145) mmol/L Potassium (3.5-5.1) mmol/L Chloride (98-107) mmol/L Carbon Dioxide (22-30) mmol/L Anion Gap (4.00-12.00) mmol/L BUN (9-20) mg/dL Creatinine (0.66-1.25) mg/dL Est GFR (CKD-EPI) (>=60) Glucose (74-99) mg/dL POC Glucose (mg/dL) 153 H (70-110) mg/dL Magnesium (1.6-2.3) mg/dL Total Bilirubin (0.3-1.2) mg/dL Total Protein (6.2-8.2) g/dL Amylase (30-110) U/L Lipase (23-300) U/L Thrombosis Risk Factor Assmnt - Choose All That Apply Any of the Below Risk Factors Present?: Yes Each Factor Represents 1 point: Age 41-60 years, Obesity (BMI >25) Other Risk Factors: No Other congenital or acquired thrombophilia - If yes, enter type in comment: No Thrombosis Risk Factor Assessment Total Risk Factor Score: 2 Thrombosis Risk Factor Assessment Level: Low Risk Assessment and Plan Time with Patient: Less than 30
[2024-02-10] MEDS ORDERED: ASPIRIN 81 MG PO SCH (21:00)
--- NOTE | 2024-02-12 18:34 | P.DS ---
Providers Date of admission: 02/09/24 16:54 Attending physician: Rey Interiano MD Consults: 02/10/24 09:53 Consult Physician Routine Consulting Provider: Mari Diamond Consult Reason/Comments: CKD, Hyperkalemia on admission Do you want consulting provider notified?: Yes Primary care physician: Gautam Mata MD Hospital Course: Final Diagnosis -Hyperkalemia secondary to end-stage renal disease and noncompliance with a renal diet patient was treated with Lokelma and his potassium has improved down to 5.1. He is educated on low potassium diet and is agreeing to follow this on discharge. He was seen and evaluated by nephrology who was cleared the patient as well. -Type 2 diabetes mellitus controlled -Mild acute pancreatitis with elevated lipase, amylase with no clinical symptoms or abdominal pain, resolved with supportive care -Coronary artery disease with no cardiac stenting patient has totally occluded RCA and also obstructive disease in the circumflex -Hypertension -Hyperlipidemia -Chronic and ongoing nicotine use educated on smoking cessation -Hx of Alcoholism in the past. Full code Discharge Disposition Stable for discharge home. Cleared by nephrology to follow up in the office with Dr Ernst in 1 week. Discharged on oral sodium bicarbonate tablets twice a day. Patient to follow a strict renal diet. Hospital Course This is a pleasant 49 year old male with medical history of end-stage renal disease and type 2 diabetes mellitus. Patient follows with Dr. Ernst in the office is found to have elevated potassium of 6 and was sent in for further evaluation. Patient has had lower extremity edema outpatient however his Lasix has been increased recently and is evaluated today with no lower extremity edema noted. Patient does state that he has been drinking christopher light throughout the day which is high in citric acid. He was admitted to the hospital and treated with lokelma with improvement in the potassium down to 5.1. There was also findings of an elevated amylase and lipase however patient is not reporting any abdominal pain he is not having any nausea vomiting or diarrhea. He has been tolerating diet. States that he did have 1 prior episode of pancreatitis requ iring hospitalization but he is unsure of what caused it and states that it did resolve. He is currently denying chest pain, denying shortness of breath. He was hydrated. Nephrology will evaluate the patient and he can likely be discharged home later today. Please see medication reconciliation for a list of current medications. Thank you for allowing us to participate in the care of this patient. The impression and plan of care has been dictated by Shireen Momin, Nurse Practitioner as directed. Dr. Yesica MD I have performed a history and physical examination and medical decision making of this patient, discussed the same with the dictator, and agree with the dictators assessment and plan as written, documented as a scribe. Based on total visit time, I have performed more than 50% of this visit. Patient Condition at Discharge: Stable Plan - Discharge Summary New Discharge Prescriptions: New Sodium Bicarbonate Tab 650 mg PO BID #60 tab Continue sitaGLIPtin [Januvia] 25 mg PO DAILY carvediloL [Coreg] 25 mg PO BID Rosuvastatin [Crestor] 10 mg PO HS Glimepiride [Amaryl] 2 mg PO DAILY Isosorbide Mononitrate ER [Imdur] 30 mg PO DAILY #30 tab Clopidogrel [Plavix] 75 mg PO DAILY #30 tab lisinopriL [Zestril] 2.5 mg PO DAILY hydrALAZINE HCL [Apresoline] 50 mg PO TID Furosemide [Lasix] 40 mg PO DAILY Aspirin 81 mg PO HS Discharge Medication List Glimepiride [Amaryl] 2 mg PO DAILY 11/18/21 [History] Clopidogrel [Plavix] 75 mg PO DAILY #30 tab 05/23/23 [Rx] Isosorbide Mononitrate ER [Imdur] 30 mg PO DAILY #30 tab 05/23/23 [Rx] Aspirin 81 mg PO HS 02/09/24 [History] Furosemide [Lasix] 40 mg PO DAILY 02/09/24 [History] Rosuvastatin [Crestor] 10 mg PO HS 02/09/24 [History] carvediloL [Coreg] 25 mg PO BID 02/09/24 [History] hydrALAZINE HCL [Apresoline] 50 mg PO TID 02/09/24 [History] lisinopriL [Zestril] 2.5 mg PO DAILY 02/09/24 [History] sitaGLIPtin [Januvia] 25 mg PO DAILY 02/09/24 [History] Sodium Bicarbonate Tab 650 mg PO BID #60 tab 02/10/24 [Rx] Follow up Appointment(s)/Referral(s): Gautam Mata MD [Primary Care Provider] - 02/14/24 11:30 am (please take discharge summary to appointment with you. ) Robert Ernst DO [STAFF PHYSICIAN] - 02/28/24 9:00 am () Ambulatory/Diagnostic Orders: Complete Blood Count w/diff [LAB.AMB] Time Frame: 3 Days, Location: None Selected Patient Instructions/Handouts: Potassium Content of Foods List (DC), Chronic Kidney Disease Diet (DC) Activity/Diet/Wound Care/Special Instructions: Follow a renal diet Discharge Disposition: HOME SELF-CARE
== END 2024-02-10 14:10 | disposition home or self-care (01) ==
LOC: EC 15:35 → 5NMEDONC 16:54 → INTOOBSV 16:54 → 5NMEDONC 20:40 → UNDODISIN 02-10 14:10
PROVIDERS: ADMIT Internal Medicine; ATTEND Internal Medicine
DX: E87.5 Hyperkalemia (principal); N18.6 End stage renal disease; Z91.119 Patient's noncompliance with dietary regimen due to unspecified reason; K85.90 Acute pancreatitis without necrosis or infection, unspecified; E11.9 Type 2 diabetes mellitus without complications; I25.10 Atherosclerotic heart disease of native coronary artery without angina pectoris; I10 Essential (primary) hypertension; E78.5 Hyperlipidemia, unspecified; F17.210 Nicotine dependence, cigarettes, uncomplicated; Z80.52 Family history of malignant neoplasm of bladder; Z83.3 Family history of diabetes mellitus
CPT/HCPCS: 99285; 36415; 93005; 83880; 80053 ×2; 82150; 83690 ×2; 83735; 84132; 85025 ×2; 71046; G0378 ×2

== ENCOUNTER → 2024-03-26 | Outpatient (CLI) | payer OTHER ==
[2024-03-26 18:46] LABS: Basophils # (A) 0.05 X 10*3/uL (0.00-0.10); Basophils % (A) 0.4 %; Eosinophils # (A) 0.32 X 10*3/uL (0.04-0.35); Eosinophils % (A) 2.9 %; HCT 28.8 % (39.6-50.0); HGB 8.9 g/dL (13.0-17.0); Lymphocytes # (A) 1.91 X 10*3/uL (0.90-5.00); Lymphocytes % (A) 17.2 %; MCH 27.9 pg (27.0-32.0); MCHC 30.9 g/dL (32.0-37.0); MCV 90.3 FL (80.0-97.0); Mean Platelet Volume 10.2 FL (9.5-12.2); Monocytes # (A) 0.76 X 10*3/uL (0.20-1.00); Monocytes % (A) 6.8 %; NRBC Per 100 WBC 0 X 10*3/uL (0.00-0.01); Neutrophils # (A) 8.07 X 10*3/uL (1.80-7.70); Neutrophils % (A) 72.5 %; Platelet Count 259 X 10*3/uL (140-440); RBC 3.19 X 10*6/uL (4.40-5.60); RDW 12.6 % (11.5-14.5); WBC 11.13 X 10*3/uL (4.50-10.00)
[2024-03-26 19:00] LABS: ALT 15 U/L (10-49); AST 18 U/L (14-35); Albumin 4.2 g/dL (3.8-4.9); Albumin/Globulin Ratio 1.56 Ratio (1.60-3.17); Alkaline Phosphatase 76 U/L (41-126); BUN/Creat Ratio 13.06 Ratio (12.00-20.00); Blood Urea Nitrogen 62.7 mg/dL (9.0-27.0); Calcium 8.9 mg/dL (8.7-10.3); Carbon Dioxide 18.3 mmol/L (21.6-31.8); Chloride 104 mmol/L (96-109); Chol/HDL Ratio 3.23 Ratio; Globulin 2.7 g/dL (1.6-3.3); Glucose 200 mg/dL (70-110); LDL Cholesterol,Calculated 34.4 mg/dL (0.0-131.0); Potassium 5.3 mmol/L (3.5-5.5); Sodium 136 mmol/L (135-145); Total Bilirubin <0.2 mg/dL (0.3-1.2); Total Protein 6.9 g/dL (6.2-8.2)
== END | disposition home or self-care (01) ==
LOC: LABWHC1 14:56
PROVIDERS: ATTEND Internal Medicine
DX: I12.9 Hypertensive chronic kidney disease with stage 1 through stage 4 chronic kidney disease, or unspecified chronic kidney disease (principal); E11.22 Type 2 diabetes mellitus with diabetic chronic kidney disease; N18.4 Chronic kidney disease, stage 4 (severe)
CPT/HCPCS: 36415; 80053; 80061; 83036; 85025

== ENCOUNTER 2024-04-30 05:45 | Day surgery (SDC) | payer OTHER ==
[2024-04-26 15:23] VITALS: BMI 37.3
[2024-04-30] MEDS ORDERED: LIDOCAINE 1% (10MG/ML) FOR IV START INTRADERMA PRN (06:00)
[2024-04-30] MEDS ORDERED: droPERidol 5 MG/2 ML VIAL IVP PRN (06:00)
[2024-04-30] MEDS ORDERED: LACTATED RINGERS 1,000 ML IV SCH (06:00)
[2024-04-30] MEDS ORDERED: HYDROmorphone 0.5 MG/0.5 ML SYRINGE IVP PRN (06:00)
[2024-04-30] MEDS: IV FLUID CONTINUATION 1,000 ML IV ONE (06:42)
[2024-04-30 06:46] LABS: Glucose,Whole Blood 166 mg/dL (70-110)
[2024-04-30] MEDS: DEXAMETHASONE SOD PHOSPHATE 4 MG/ML 1 ML VIAL IV ONE (06:55)
[2024-04-30] MEDS: ONDANSETRON 4 MG/2 ML VIAL IVP ONE (06:55)
[2024-04-30] MEDS: SODIUM CHLORIDE 0.9% 1,000 ML BAG IV STA (06:56)
[2024-04-30] MEDS: MIDAZOLAM 2 MG/2 ML VIAL IVP ONE (07:11)
--- NOTE | 2024-04-30 07:15 | P.HPIHPCON ---
History of Present Illness H&P Date: 04/30/24 Chief Complaint: Chronic kidney disease 49 year old male with chronic kidney disease presents for left upper extremity AVG creation. He had vein mapping which demonstrated diminuitive veins unusable for fistula creation. He denies any fevers, chills, chest pain or shortness of breath. Consent for Procedure: I have explained the operation/procedure to the patient, including the risks, benefits, side effects, alternative therapies (including not receiving the proposed treatment or service), the likelihood of the patient achieving his/her goals, and potential recuperation problems for the procedure/sedation/analgesia, as well as any blood products, if indicated. I also explained to the patient the risks, benefits and side effects of the alternatives, as well as the risks related to not receiving the proposed procedure, care, treatment, or services. - Review of Systems All systems: negative (what is mentioned in the HPI or PMH) Past Medical History Past Medical History: Coronary Artery Disease (CAD), Diabetes Mellitus, Hyperlipidemia, Hypertension, Myocardial Infarction ([place]), Osteoarthritis (OA), Renal Disease Additional Past Medical History / Comment(s): SOB at times. Hx bilateral detached retina. Stage 5 kidney disease, no dialysis to date. Hx insomnia. Bilateral hip pain, right worse. Last Myocardial Infarction Date:: 05/17/2023 History of Any Multi-Drug Resistant Organisms: None Reported Past Surgical History: Heart Catheterization, Tonsillectomy Additional Past Surgical History / Comment(s): Cyst removed from back, eye surgery. Past Anesthesia/Blood Transfusion Reactions: No Reported Reaction Smoking Status: Current every day smoker - Past Family History Father Family Medical History: Cancer, CVA/TIA Additional Family Medical History / Comment(s): Bladder cancer. Mother Family Medical History: Diabetes Mellitus, Hypertension Medications and Allergies Home Medications Medication Instructions Recorded Confirmed Type Glimepiride [Amaryl] 2 mg PO DAILY 11/18/21 04/26/24 History Clopidogrel [Plavix] 75 mg PO DAILY #30 tab 05/23/23 04/26/24 Rx Isosorbide Mononitrate ER [Imdur] 30 mg PO DAILY #30 tab 05/23/23 04/26/24 Rx Aspirin 81 mg PO HS 02/09/24 04/26/24 History Furosemide [Lasix] 40 mg PO DAILY 02/09/24 04/26/24 History Rosuvastatin [Crestor] 10 mg PO HS 02/09/24 04/26/24 History carvediloL [Coreg] 25 mg PO BID 02/09/24 04/26/24 History hydrALAZINE HCL [Apresoline] 50 mg PO BID 02/09/24 04/26/24 History sitaGLIPtin [Januvia] 25 mg PO DAILY 02/09/24 04/26/24 History traMADol HCL 50 mg PO BID PRN 04/26/24 04/26/24 History Allergies Allergy/AdvReac Type Severity Reaction Status Date / Time No Known Allergies Allergy Verified 04/30/24 06:15 Surgical - Exam Vital Signs Temp Pulse Resp BP Pulse Ox 96.8 F L 72 16 132/70 98 04/30/24 06:43 04/30/24 06:43 04/30/24 06:43 04/30/24 06:43 04/30/24 06:43 Patient Seen Date: 04/30/24 Patient Seen Time: 07:00 - General well nourished, no distress - Eyes PERRL - Neck no masses, no bruits - Respiratory normal expansion, normal respiratory effort - Cardiovascular Rhythm: regular - Abdomen Abdomen: soft, non tender - Integumentary no rash - Neurologic normal coordination, normal sensation - Psychiatric oriented to time, oriented to person, oriented to place, speech is normal palpable radial pulses bilaterally Results - Labs Abnormal Lab Results - Last 24 Hours (Table) 04/30/24 Range/Units 06:45 POC Glucose (mg/dL) 166 H (70-110) mg/dL Assessment and Plan Assessment: Chronic kidney disease Tobacco use Type 2 DM Plan: To OR for left upper extremity loop AVG
[2024-04-30] MEDS ORDERED: MIDAZOLAM 2 MG/2 ML VIAL ONE (07:25)
[2024-04-30] MEDS ORDERED: HEPARIN SODIUM,PORCINE 5,000 UNIT/ML 1 ML VIAL ONE (07:25)
[2024-04-30] MEDS ORDERED: KETAMINE HCL IN 0.9 % NACL 50 MG/5 ML SYRINGE ONE (07:25)
[2024-04-30] MEDS ORDERED: PHENYLEPHRINE 10 MG/ML VIAL ONE (07:25)
[2024-04-30] MEDS ORDERED: DEXAMETHASONE SOD PHOSPHATE 4 MG/ML 1 ML VIAL ONE (07:25)
[2024-04-30] MEDS ORDERED: ROPIVACAINE 5 MG/ML 30 ML VIAL ONE (07:25)
[2024-04-30] MEDS ORDERED: WATER FOR INJECTION, STERILE 10 ML VIAL IV ONE (07:25)
[2024-04-30] MEDS ORDERED: ePHEDrine 50 MG/ML 1 ML VIAL ONE (07:25)
[2024-04-30] MEDS ORDERED: PROPOFOL 10 MG/ML 20 ML VIAL IV ONE (07:25)
[2024-04-30] MEDS ORDERED: fentaNYL (PF) 50 MCG/ML 2 ML AMP ONE (07:25)
--- NOTE | 2024-04-30 07:27 | P.ANPRN ---
Procedure Note - Anesthesia - Nerve Block Performed Left Suprascapular Nerve Block Single Time Out Performed: Yes Date of Procedure: 04/30/24 Procedure Start Time: 07:11 Procedure Stop Time: 07:15 Location of Patient: PreOp Indication: Acute Post-Operative Pain, Analgesia, Requested by Surgeon Sedation Type: Sedate with meaningful contact maintained Preparation: Sterile Prep Position: Sitting Catheter: None Needle Types: Pajunk Needle Gauge: 21 Ultrasound used to visualize needle placement: Yes Ultrasound used to observe medication spread: Yes Injectate: 0.5% Ropivacaine (see comment for volume) ([id number]) Blood Aspirated: No Pain Paresthesia on Injection Noted: No Resistance on Injection: Normal Image Stored and Saved: Yes Events: Uneventful and Well Tolerated
[2024-04-30 07:35] LABS: Potassium 5.2 mmol/L (3.5-5.1)
[2024-04-30] MEDS: LIDOCAINE 1% INJ 10MG/ML (20 ML MDV) SQ ONE ×2 (07:58)
[2024-04-30] MEDS: ceFAZolin 2 GM in SODIUM CHLORIDE 0.9% 500 ML 500 ML IRRIGATION ONE (08:03)
[2024-04-30] MEDS: HEPARIN SODIUM (1,000 UNIT/ML) 2,000 UNIT in SODIUM CHLORIDE 0.9% 1,000 ML IRRIGATION ONE (08:04)
[2024-04-30] MEDS: THROMBIN (BOVINE) 5,000 UNIT VIAL TOPICAL ONE (08:05)
[2024-04-30] MEDS: SODIUM CHLORIDE 0.9% 500 ML 500 ML IV ONE (09:05)
[2024-04-30] MEDS: SODIUM CHLORIDE 0.9% 1,000 ML IV ONE (09:05)
[2024-04-30 09:39] VITALS: TEMP 97.3
[2024-04-30 11:14] VITALS: BP 152/70; PULSE 69; RESP 20
--- NOTE | 2024-04-30 12:21 | P.OP ---
Date of Procedure: 04/30/24 Preoperative Diagnosis: Chronic kidney disease Postoperative Diagnosis: Same Procedure(s) Performed: Left upper extremity loop forearm arteriovenous graft creation Anesthesia: BEREKET Surgeon: Jesus Treadwell Estimated Blood Loss (ml): 20 Pathology: none sent Condition: stable Disposition: PACU Indications for Procedure: 49-year-old gentleman with chronic kidney disease with GFR less than 15 presents to the operative suite for elective left upper extremity loop forearm graft. He had previous vein mapping that demonstrated poor venous size for fistula and therefore presents for graft creation. Description of Procedure: After written informed consent was obtained the patient all risks benefits and competitions were described patient is brought to the operative suite and laid in a supine position with the left arm outstretched on an armboard. The area of the arm was then prepped and draped in usual sterile fashion after appropriate anesthetic was performed per the anesthesiologist. A timeout was performed in normal fashion antibiotics were administered prior to incision. A transverse incision was then created just distal to the elbow and dissection was carried down to the antecubital vein and this was dissected free in a circumferential manner. Proximal and distal control was obtained with vessel loops. Attention was then placed to the artery and the brachial artery was then dissected free in a circumferential manner and controlled with vessel loops for the proximal and distal aspect. A tunnel was then created in a loop fashion with a counterincision made in the forearm and a 4-7 mm [place] propatent graft was tunneled in a loop fashion. Patient was then administered heparin. Arterial anastomosis was then performed after arteriotomy was created in the brachial artery and extended with Pott Brock scissors. The 4 mm aspect of the graft was then spatulated in normal fashion and anastomosis was created with 6-0 Prolene suture in a running fashion. Control was then released into the graft revealing good pulsatile blood flow. Distal control of the artery was then released. Assessment of the radial artery demonstrated good pulse. The anastomosis was then performed. Venotomy was created with 11 blade scalpel and extended with Pott Brock scissors. A 7 mm aspect of the graft was then spatulated in normal fashion and anastomosis was created with 6-0 Prolene suture in a running fashion. Prior to last sutures being placed control was released revealing good backbleeding from the vein. The graft was flushed with heparin saline. Control was then released revealing good pulsatile blood flow within the vein with a good palpable thrill noted. Hemostasis was then assured with Gelfoam and thrombin. Incisions were then closed in a multilayer fashion. Skin was cleansed and dressings were placed. The patient tolerated the procedure well and was sent to PACU for recovery.
== END 2024-04-30 11:15 | disposition home or self-care (01) ==
LOC: OR 05:45
PROVIDERS: ATTEND Surgery
DX: I12.9 Hypertensive chronic kidney disease with stage 1 through stage 4 chronic kidney disease, or unspecified chronic kidney disease (principal); E11.22 Type 2 diabetes mellitus with diabetic chronic kidney disease; N18.9 Chronic kidney disease, unspecified; E78.5 Hyperlipidemia, unspecified; G89.18 Other acute postprocedural pain; I25.10 Atherosclerotic heart disease of native coronary artery without angina pectoris; I25.2 Old myocardial infarction; M19.90 Unspecified osteoarthritis, unspecified site; F17.210 Nicotine dependence, cigarettes, uncomplicated; Z79.02 Long term (current) use of antithrombotics/antiplatelets; Z79.84 Long term (current) use of oral hypoglycemic drugs; Z90.89 Acquired absence of other organs; Z79.899 Other long term (current) drug therapy
CPT/HCPCS: 64415; 80051; 36830; L8670; J2250; J1644 ×2; J1100; J0690; J2405; J2001; J3010; J2795; J2704; J2371

== ENCOUNTER → 2024-05-04 | Outpatient (CLI) | payer OTHER ==
[2024-05-04 11:39] LABS: Creatinine,Urine Random 116.9 mg/dL
[2024-05-04 11:46] LABS: Protein/Creatinine Ratio,Urine 3.225
[2024-05-04 17:06] LABS: Appearance,Urine Clear (Clear); Bilirubin,Urine Negative (Negative); Blood,Urine Negative (Negative); Color,Urine Yellow (Yellow); Ketones,Urine Negative (Negative); Nitrite,Urine Negative (Negative); Urobilinogen,Urine 0.2 E.U./DL
[2024-05-04 17:09] LABS: Bacteria,Urine None Seen (None Seen)
[2024-05-04 17:21] LABS: HCT 31.1 % (39.6-50.0); HGB 9.7 g/dL (13.0-17.0); MCHC 31.2 g/dL (32.0-37.0); MCV 89.6 FL (80.0-97.0); Mean Platelet Volume 10.2 FL (9.5-12.2); NRBC Per 100 WBC 0 X 10*3/uL (0.00-0.01); Platelet Count 299 X 10*3/uL (140-440); RBC 3.47 X 10*6/uL (4.40-5.60); RDW 12.7 % (11.5-14.5); WBC 14.56 X 10*3/uL (4.50-10.00)
[2024-05-04 17:50] LABS: ALT 10 U/L (10-49); AST 16 U/L (14-35); Albumin/Globulin Ratio 1.48 Ratio (1.60-3.17); Alkaline Phosphatase 75 U/L (41-126); BUN/Creat Ratio 14.85 Ratio (12.00-20.00); Blood Urea Nitrogen 60.9 mg/dL (9.0-27.0); Calcium 8.7 mg/dL (8.7-10.3); Carbon Dioxide 16.5 mmol/L (21.6-31.8); Chloride 107 mmol/L (96-109); Globulin 2.7 g/dL (1.6-3.3); Glucose 248 mg/dL (70-110); Magnesium 1.8 mg/dL (1.5-2.4); Phosphorus 5.6 mg/dL (2.4-5.1); Potassium 5.1 mmol/L (3.5-5.5); Sodium 139 mmol/L (135-145); Total Bilirubin <0.2 mg/dL (0.3-1.2); Total Protein 6.7 g/dL (6.2-8.2)
== END | disposition home or self-care (01) ==
LOC: LABWHC1 10:47
PROVIDERS: ATTEND Nurse Practitioner Acute Care
DX: N18.5 Chronic kidney disease, stage 5 (principal)
CPT/HCPCS: 36415; 80053; 81001; 82043; 82570; 83735; 84100; 84156; 85027

== ENCOUNTER 2024-08-03 08:41 | Day surgery (SDC) | payer OTHER ==
[2024-08-02 09:01] VITALS: BMI 37.3
[~2024-08-03 08:41] MED LIST: LACTATED RINGERS 1,000 ML IV SCH; LIDOCAINE 1% (10MG/ML) FOR IV START INTRADERMA PRN
[2024-08-03] MEDS: IV FLUID CONTINUATION 1,000 ML IV ONE (08:53)
[2024-08-03 09:00] VITALS: RESP 16; TEMP 97.9
[2024-08-03 09:09] LABS: Glucose,Whole Blood 141 mg/dL (70-110)
[2024-08-03] MEDS ORDERED: PROPOFOL 10 MG/ML 20 ML VIAL IV ONE (09:13)
--- NOTE | 2024-08-03 09:29 | P.PCN ---
Date of Procedure: 08/03/24 Procedure(s) Performed: BRIEF HISTORY: Patient is a 53-year-old pleasant white male scheduled for an elective colonoscopy as a part of screening for colon cancer. PROCEDURE PERFORMED: Colonoscopy with snare polypectomy. PREOPERATIVE DIAGNOSIS: Screening for colon cancer. IV sedation per Anesthesia. PROCEDURE: After informed consent was obtained, the patient, was brought into the endoscopy unit. IV sedation was administered by Anesthesia under continuous monitoring. Digital rectal examination was normal. Initially the Olympus CF-160 flexible video colonoscope was then inserted in the rectum, gradually advanced into the cecum without any difficulty. Careful examination was performed as the scope was gradually being withdrawn. Ileocecal valve and the appendiceal orifice were visualized and appeared normal. Prep was excellent. Mucosa of the cecum, ascending colon, transverse colon, descending colon, sigmoid colon, and rectum appeared normal. The sigmoid colon there was a 1 cm polyp that was removed by snare polypectomy. Scattered sigmoid diverticulosis seen. Retroflexion was performed in the rectum and no lesions were seen. The patient tolerated the procedure well. IMPRESSION: 1 cm distal sigmoid colon polyp status post snare polypectomy Scattered sigmoid diverticulosis RECOMMENDATIONS: Findings of this examination were discussed with the patient as well as his family. He was advised to follow-up with the biopsy results. If the biopsy reveals adenoma he can have repeat colonoscopy in 3 years..
[2024-08-03 09:50] VITALS: BP 120/71; PULSE 80
[2024-08-03 11:53] LABS: Glucose,Whole Blood 145 mg/dL (70-110)
== END 2024-08-03 10:05 | disposition home or self-care (01) ==
LOC: ORWHC2ENDO 08:41
PROVIDERS: ATTEND Internal Medicine Gastroenterology
DX: Z12.11 Encounter for screening for malignant neoplasm of colon
CPT/HCPCS: 45385; 88305

== ENCOUNTER → 2025-03-06 | Outpatient (CLI) | payer OTHER ==
[2025-03-06 15:44] LABS: Basophils # (A) 0.07 X 10*3/uL (0.00-0.10); Basophils % (A) 0.5 %; Eosinophils # (A) 0.48 X 10*3/uL (0.04-0.35); Eosinophils % (A) 3.6 %; HCT 32.3 % (39.6-50.0); HGB 9.9 g/dL (13.0-17.0); Lymphocytes # (A) 2.97 X 10*3/uL (0.90-5.00); Lymphocytes % (A) 22.3 %; MCHC 30.7 g/dL (32.0-37.0); Mean Platelet Volume 10.5 FL (9.5-12.2); Monocytes # (A) 1.04 X 10*3/uL (0.20-1.00); Monocytes % (A) 7.8 %; NRBC Per 100 WBC 0 X 10*3/uL (0.00-0.01); Neutrophils # (A) 8.72 X 10*3/uL (1.80-7.70); Neutrophils % (A) 65.4 %; Platelet Count 272 X 10*3/uL (140-440); RBC 3.67 X 10*6/uL (4.40-5.60); RDW 13.6 % (11.5-14.5); WBC 13.33 X 10*3/uL (4.50-10.00)
[2025-03-06 18:12] LABS: % Iron Saturation 14.33 (15.00-50.00); Albumin 4.1 g/dL (3.8-4.9); BUN/Creat Ratio 11.02 Ratio (12.00-20.00); Blood Urea Nitrogen 51.8 mg/dL (9.0-27.0); Calcium 8.5 mg/dL (8.7-10.3); Carbon Dioxide 16.1 mmol/L (21.6-31.8); Chloride 111 mmol/L (96-109); Ferritin 52.1 ng/mL (22.0-322.0); Glucose 100 mg/dL (70-110); Iron 50 UG/DL (65-175); Potassium 4.9 mmol/L (3.5-5.5); Sodium 145 mmol/L (135-145); Total Iron Binding Capacity 349 UG/DL (228-460); Uric Acid 7.1 mg/dL (3.7-8.7)
== END | disposition home or self-care (01) ==
LOC: LABWHC1 11:55
PROVIDERS: ATTEND Internal Medicine Interventional Cardiology
DX: E55.9 Vitamin D deficiency, unspecified (principal); N25.81 Secondary hyperparathyroidism of renal origin; M10.9 Gout, unspecified; N39.0 Urinary tract infection, site not specified; N18.5 Chronic kidney disease, stage 5; D63.1 Anemia in chronic kidney disease; R80.9 Proteinuria, unspecified
CPT/HCPCS: 36415; 80048; 82040; 82306; 82728; 83540; 83550; 83735; 83970; 84100; 84550; 85025

== ENCOUNTER → 2025-05-16 | Outpatient (CLI) | payer OTHER ==
[2025-05-16 15:30] LABS: Basophils # (A) 0.07 X 10*3/uL (0.00-0.10); Basophils % (A) 0.5 %; Eosinophils # (A) 0.42 X 10*3/uL (0.04-0.35); Eosinophils % (A) 3.1 %; HCT 32.0 % (39.6-50.0); HGB 9.6 g/dL (13.0-17.0); Immature Grans, Automated 0.40 %; Lymphocytes # (A) 1.72 X 10*3/uL (0.90-5.00); Lymphocytes % (A) 12.7 %; MCH 27.3 pg (27.0-32.0); MCHC 30.0 g/dL (32.0-37.0); MCV 90.9 FL (80.0-97.0); Monocytes # (A) 1.20 X 10*3/uL (0.20-1.00); Monocytes % (A) 8.9 %; NRBC Per 100 WBC 0 X 10*3/uL (0.00-0.01); Neutrophils # (A) 10.06 X 10*3/uL (1.80-7.70); Neutrophils % (A) 74.4 %; Platelet Count 249 X 10*3/uL (140-440); RBC 3.52 X 10*6/uL (4.40-5.60); RDW 13.6 % (11.5-14.5); WBC 13.53 X 10*3/uL (4.50-10.00)
[2025-05-16 15:49] LABS: Anion Gap 14.50 mmol/L (4.00-12.00); BUN/Creat Ratio 10.33 Ratio (12.00-20.00); Blood Urea Nitrogen 47.5 mg/dL (9.0-27.0); Carbon Dioxide 16.5 mmol/L (21.6-31.8); Chloride 106 mmol/L (96-109); Glucose 207 mg/dL (70-110); Iron 41 UG/DL (65-175); Magnesium 1.8 mg/dL (1.5-2.4); Potassium 4.6 mmol/L (3.5-5.5); Sodium 137 mmol/L (135-145); Total Iron Binding Capacity 328 UG/DL (228-460); Uric Acid 6.4 mg/dL (3.7-8.7)
[2025-05-16 15:50] LABS: Albumin 4.0 g/dL (3.8-4.9); Calcium 8.4 mg/dL (8.7-10.3); Ferritin 45.8 ng/mL (22.0-322.0)
[2025-05-16 16:27] LABS: Bilirubin,Urine Negative (Negative); Blood,Urine Negative (Negative); Color,Urine Yellow (Yellow); Ketones,Urine Negative (Negative); Nitrite,Urine Negative (Negative); PH, Urine 6.0; Specific Gravity,Urine 1.018 (1.001-1.030); Urobilinogen,Urine 0.2 E.U./DL
[2025-05-16 16:41] LABS: Bacteria,Urine None Seen (None Seen)
== END | disposition home or self-care (01) ==
LOC: LABWHC1 08:39
PROVIDERS: ATTEND Nurse Practitioner Adult Health
DX: E55.9 Vitamin D deficiency, unspecified (principal); N25.81 Secondary hyperparathyroidism of renal origin; M10.9 Gout, unspecified; N39.0 Urinary tract infection, site not specified; N18.5 Chronic kidney disease, stage 5; D63.1 Anemia in chronic kidney disease
CPT/HCPCS: 36415; 80048; 81001; 82040; 82043; 82306; 82570; 82728; 83540; 83550; 83735; 83970; 84100; 84550; 85025